=== PATIENT | male | born 1940 | race Caucasian/White ===

== ENCOUNTER → 2017-02-04 | Outpatient (CLI) | payer OTHER, MEDICARE ==
[~2017-02-04] MED LIST: ACET-1175 PO; ALBU1NEB10 INH; ASCO1CAP3 PO; ASCO500C43 PO; BECL0.072 INH; BISA10SU3 PR; CLC100X PO; FLUC100T PO; FURO-85 PO; MOM; MULT-513 PO; NUTR-977 GJT; OXGN; POLY150C PO; SENNAKOT; TIOTCAP INH; VITACAP26; [UNRECOGNIZED DRUG - OTHER] PO
--- NOTE | 2017-02-04 14:17 | DIAGNOSTIC IMAGING REPORT ---
ARTERIAL DOPPLER ULTRASOUND OF THE LOWER EXTREMITIES BILATERAL CLINICAL HISTORY: PAIN IN LEFT FOOT COMPARISON STUDY: No previous studies for comparison. FINDINGS: Brachial arm systolic pressures are 121 mmHg on the right and 132 mmHg on the left. Posterior tibial systolic pressures are 123 mmHg on the right and 1 26 mmHg on the left. Dorsalis pedis systolic pressures are 103 mmHg the right and 123 mmHg on the left. This yields ankle arm indices of 0.93 on the right and 0.95 and the left. There is scattered plaque present throughout both lower extremities. There is triphasic flow within both common femoral, superficial femoral, and popliteal arteries. There is biphasic flow within the posterior tibial and anterior tibial and peroneal arteries bilaterally. No high velocity jets are visualized. IMPRESSION: No evidence of focal lower extremity arterial stenosis. Ankle arm indices of 0.93 in the right and 0.95 the left. Electronically signed by: Srinath Alba M.D. 02/04/2017 2:15 PM Dictated Date/Time: 02/04/2017 2:14 PM
== END | disposition home or self-care (01) ==
LOC: C.ULTR 12:44
PROVIDERS: ATTEND Podiatrist
DX: I70.293 Other atherosclerosis of native arteries of extremities, bilateral legs (principal); M20.42 Other hammer toe(s) (acquired), left foot; M79.675 Pain in left toe(s)

== ENCOUNTER 2018-05-19 23:58 | Inpatient (IN) | payer OTHER, MEDICARE ==
[~2018-05-19] VITALS: Ht 188 cm; Wt 79.3 kg
[~2018-05-19 23:58] MED LIST changes: -ACET-1175 PO; -ALBU1NEB10 INH; -ASCO1CAP3 PO; -BECL0.072 INH; -BISA10SU3 PR; -CLC100X PO; -FLUC100T PO; +LPR25 PO; -MOM; -MULT-513 PO; -NUTR-977 GJT; -POLY150C PO; -SENNAKOT; +SPRIN INH; -TIOTCAP INH; -VITACAP26; -[UNRECOGNIZED DRUG - OTHER] PO
[2018-05-20] VITALS (14 sets, daily range): BP systolic 91–127; BP diastolic 54–69; PULSE 74–105; TEMP 36.5–37.3; O2SAT 94–98; BMI 23.8
--- NOTE | 2018-05-20 00:36 | EMERGENCY ROOM VISIT NOTE ---
History Report prepared by Beto: Cliff Cuevas Under the Supervision of: Dr. Shantanu Cartagena M.D. First contact with patient: 00:25 Chief Complaint: FALL Stated Complaint: FALL,LOW BLOOD PRESSURE,O2 ALMOST 5 History of Present Illness The patient is a 78 year old male who presents to the Emergency Room with complaints of an episode of a fell that occurred 90 minutes ago. Per the patient 's report, he was recently admitted a couple of days ago due to an irregular heart rate. Starting two days ago, he was started on Lopressor and was sent home. His states that since coming home, the patient has been off balance and weak. The patient states that today he fell and hit his forehead off of the ground. He states that after the fall, he was able to ambulate. The patient's states that his left knee now has an unusual bump. The patient denies knee pain, neck pain, headache, abdominal pain, urinary symptoms, and hip pain. Source of History: patient, spouse/significant other Onset: 90 minutes ago Position: other (generalized) Timing: other (an episode) Associated Symptoms: No headache, No neck pain, No abdominal pain, No urinary symptoms Note: Denies: knee pain and hip pain. Review of Systems See HPI for pertinent positives & negatives. A total of 10 systems reviewed and were otherwise negative. 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 (6) History of rectal cancer (7) IMPAIRED FASTING GLUCOSE (8) Respiratory failure, [id number] Family History Diabetes mellitus Hypertension Lung disease Social History Smoking Status: Former Smoker Alcohol Use: none Drug Use: none Marital Status: Housing Status: lives with family Occupation Status: retired Current/Historical Medications Scheduled Ascorbic Acid (Vitamin C 500 mg), 500 MG PO QAM Docusate Sodium (Docusate Sodium), 100 MG PO BID Furosemide (Lasix), 20 MG PO QAM Home O2 Therapy (Oxygen), 2-3 LITERS NA CONTINOUS Metoprolol Tartrate (Lopressor) (Lopressor), 12.5 MG PO DAILY Scheduled PRN Chlorpheniramine Maleate (Chlor-Trimeton), 4 MG PO BID PRN for Allergic Reaction Allergies Coded Allergies: Metoprolol (Verified Adverse Reaction, Mild, 0, 05/20/18) weakness Morphine (Verified Adverse Reaction, Unknown, GI SYMPTOMS, 05/16/18) dry heaving and convulsing-during recent [facility] surgery in 2012. Nitroglycerin (Verified Adverse Reaction, Unknown, GI SYMPTOMS, 05/16/18) at the same time of morphine allergy. heaving and convulsing. Physical Exam Vital Signs Date Time Temp Pulse Resp B/P (MAP) Pulse Ox O2 Delivery O2 Flow Rate FiO2 05/20/18 02:43 82 18 146/82 100 Nasal Cannula 3.0 05/20/18 01:00 75 17 126/57 99 Nasal Cannula 3.0 05/20/18 00:30 74 18 116/67 97 Nasal Cannula 3.0 05/20/18 00:01 36.8 79 16 111/64 100 Nasal Cannula 4.0 Physical Exam GENERAL: Patient is weak and chronically unwell appearing and in no acute distress. EYES: No scleral icterus, unremarkable pupils. ENT: Mucous membranes moist, no nasal congestion. NECK: No masses appreciated, no meningismus, trachea is midline. RESPIRATORY: Moderately dyspneic with decreased breath sounds bilaterally, right worse than left. No wheeze, no rhonchi. CARDIOVASCULAR: Regular rate and rhythm. No murmurs, rubs, gallops appreciated. GASTROINTESTINAL: Abdomen soft, nontender, no peritonitis. Bowel sounds positive. No masses appreciated. BACK: No midline tenderness, no CVA tenderness EXTREMITIES: Normal motion all extremities, no cyanosis, no edema. NEUROLOGIC: Alert and oriented, no acute motor or sensory deficits, no focal weakness, cranial nerves grossly intact. SKIN: No rash, no jaundice, no diaphoresis. Bruising on right arm, hand, and left knee. Bruise to mid forehead with some swelling. Medical Decision & Procedures ER Provider Diagnostic Interpretation: Stat Rad Radiology results and stated below per my review and radiologist interpretation: CT HEAD: No ICH, mass effect or edema. No skull fracture. Radiologist: Toño Clayton MD CT C SPINE: No evidence of fracture or malalignment. Radiologist: Toño Clayton MD ONE VIEW CHEST: No pneumothorax, no pneumonia, bilateral emphysematous changes with flattening of diaphragms. There is a right perihilar mass/adenopathy. This is similar to chest x-ray from 05/16. 2 VIEW LEFT KNEE: Moderate degenerative changes. No fracture. No dislocation Generalized weakness ,fall, failure to thrive Laboratory Results 05/20/18 00:44 Red Blood Count 3.93, Mean Corpuscular Volume 98.7, Mean Corpuscular Hemoglobin 31.8, Mean Corpuscular Hemoglobin Concent 32.2, Mean Platelet Volume 9.5, Neutrophils (%) (Auto) 78.7, Lymphocytes (%) (Auto) 11.3, Monocytes (%) (Auto) 7.5, Eosinophils (%) (Auto) 1.9, Basophils (%) (Auto) 0.2, Neutrophils # (Auto) 4.12, Lymphocytes # (Auto) 0.59, Monocytes # (Auto) 0.39, Eosinophils # (Auto) 0.10, Basophils # (Auto) 0.01 05/20/18 00:44 Test 05/20/18 00:44 05/20/18 02:30 White Blood Count 5.23 K/uL (4.8-10.8) Red Blood Count 3.93 M/uL (4.7-6.1) Hemoglobin 12.5 g/dL (14.0-18.0) Hematocrit 38.8 % (42-52) Mean Corpuscular Volume 98.7 fL (80-100) Mean Corpuscular Hemoglobin 31.8 pg (25-34) Mean Corpuscular Hemoglobin Concent 32.2 g/dl (32-36) Platelet Count 85 K/uL (130-400) Mean Platelet Volume 9.5 fL (7.4-10.4) Neutrophils (%) (Auto) 78.7 % Lymphocytes (%) (Auto) 11.3 % Monocytes (%) (Auto) 7.5 % Eosinophils (%) (Auto) 1.9 % Basophils (%) (Auto) 0.2 % Neutrophils # (Auto) 4.12 K/uL (1.4-6.5) Lymphocytes # (Auto) 0.59 K/uL (1.2-3.4) Monocytes # (Auto) 0.39 K/uL (0.11-0.59) Eosinophils # (Auto) 0.10 K/uL (0-0.5) Basophils # (Auto) 0.01 K/uL (0-0.2) RDW Standard Deviation 44.5 fL (36.4-46.3) RDW Coefficient of Variation 12.2 % (11.5-14.5) Immature Granulocyte % (Auto) 0.4 % Immature Granulocyte # (Auto) 0.02 K/uL (0.00-0.02) Red Blood Cell Morphology Unremarkable Prothrombin Time 10.1 SECONDS (9.0-12.0) Prothromb Time International Ratio 1.0 (0.9-1.1) Activated Partial Thromboplast Time 26.8 SECONDS (21.0-31.0) Partial Thromboplastin Ratio 1.0 Anion Gap 1.0 mmol/L (3-11) Est Creatinine Clear Calc Drug Dose 103.0 ml/min Estimated GFR () 105.6 Estimated GFR (Non- 91.1 BUN/Creatinine Ratio 22.2 (10-20) Estimated Average Glucose 105 mg/dl Hemoglobin A1c 5.3 % (4.5-5.6) Calcium Level 8.7 mg/dl (8.5-10.1) Phosphorus Level 3.2 mg/dl (2.5-4.9) Magnesium Level 2.1 mg/dl (1.8-2.4) Total Bilirubin 0.4 mg/dl (0.2-1) Direct Bilirubin 0.1 mg/dl (0-0.2) Aspartate Amino Transf (AST/SGOT) 35 U/L (15-37) Alanine Aminotransferase (ALT/SGPT) 36 U/L (12-78) Alkaline Phosphatase 114 U/L (45-117) Total Creatine Kinase 101 U/L (39-308) Creatine Kinase MB 6.5 ng/ml (0.5-3.6) Creatine Kinase MB Ratio 6.4 (0-3.0) Troponin I 0.032 ng/ml (0-0.045) Total Protein 7.6 gm/dl (6.4-8.2) Albumin 3.9 gm/dl (3.4-5.0) Lipase 113 U/L (73-393) Urine Color DK YELLOW Urine Appearance CLEAR (CLEAR) Urine pH 5.5 (4.5-7.5) Urine Specific [place] 1.025 (1.000-1.030) Urine Protein NEG (NEG) Urine Glucose (UA) NEG (NEG) Urine Ketones NEG (NEG) Urine Occult Blood NEG (NEG) Urine Nitrite NEG (NEG) Urine Bilirubin NEG (NEG) Urine Urobilinogen NEG (NEG) Urine Leukocyte Esterase NEG (NEG) Urine WBC (Auto) 1-5 /hpf (0-5) Urine RBC (Auto) 5-10 /hpf (0-4) Urine Hyaline Casts (Auto) 0 /lpf (0-5) Urine Epithelial Cells (Auto) 10-20 /lpf (0-5) Urine Bacteria (Auto) NEG (NEG) Laboratory results as reviewed by me. ECG Per My Interpretation Indication: weakness Rate (beats per minute): 77 Rhythm: normal sinus Findings: 1st degree AV block, T-wave inversion (Lateral), prolonged QT, other (no STEMI) Comparison ECG Date: 05/18/18 Change: TWI is new ED Course 0028: The patient was evaluated in room B11B. A complete history and physical exam was performed. 0219: I reevaluated the patient and he is the same. His reiterated that she is unable to care for him at home like this. I discussed the results and treatment plan, which they agree to. 0222: Paged Hospitalist. 0228: I discussed the patients condition with Dr. Sánchez, [facility] Hospitalist. He understands the patients condition and agrees to accept the patient. The patient will be evaluated for further management and care. Medical Decision Differential: Sepsis, Infectious (UTI/Pneumonia/Meningitis/etc), Metabolic/ Electrolyte Abnormality, Cardiac, Dehydration, Anemia, Hepatic, Endocrine, Toxicologic, Neurologic, amongst other pathologies entertained. Elderly very deconditioned 78 yr old male with host of medical comorbidities discharged just 2 days from [facility] arrives for evaluation s/p fall. Apparently he is not able to ambulate down mares at home without falling and injuring self. So weak that during fall can not protect his head. Inverted lateral T waves new compared to previous EKG but suspect this may be leads as doesn't sound like this was cardiac and t wave inversions have been seen in other EKGs in past. CT head/cervical negative. CXR clear. Labs unremarkable. makes it clear she can not care for him at home and he is too ill to return. Hospitalist consulted for further management/placement given it is early am, a weekend and he is quite ill to begin with. Head Trauma GCS Score: 15 Medication Reconcilliation Current Medication List: was personally reviewed by me Blood Pressure Screening Patient's blood pressure: Normal blood pressure Consults Time Called: [phone] Consulting Physician: Lisseth Molina Hospitalist Returned Call: [phone] I discussed the patients condition with Lisseth Molina Hospitalist. He understands the patients condition and agrees to accept the patient. The patient will be evaluated for further management and care. Impression Primary Impression: Generalized weakness Additional Impressions: Fall Failure to thrive in adult Scribe Attestation The scribe's documentation has been prepared under my direction and personally reviewed by me in its entirety. I confirm that the note above accurately reflects all work, treatment, procedures, and medical decision making performed by me. Departure Information Dispostion Being Evaluated By Hospitalist Referrals Ray Huerta MD (PCP) Patient Instructions My [facility] Problem Qualifiers
[2018-05-20 00:55] LABS: HEMATOCRIT 38.8 % (42-52); HEMOGLOBIN 12.5 g/dL (14.0-18.0); MEAN CELL VOLUME 98.7 fL (80-100); MEAN CORPUSCULAR HEMOGLOBIN 31.8 pg (25-34); MEAN CORPUSCULAR HGB CONC 32.2 g/dl (32-36); RED CELL DISTRIBUTION WIDTH CV 12.2 % (11.5-14.5); RED CELL DISTRIBUTION WIDTH SD 44.5 fL (36.4-46.3); WHITE BLOOD COUNT 5.23 K/uL (4.8-10.8)
[2018-05-20 00:59] LABS: MEAN PLATELET VOLUME 9.5 fL (7.4-10.4); PLATELET COUNT 85 K/uL (130-400)
[2018-05-20 01:05] LABS: PTT PATIENT 26.8 SECONDS (21.0-31.0)
[2018-05-20 01:14] LABS: BASO % 0.2 %; BASO ABS # 0.01 K/uL (0-0.2); EOS % 1.9 %; IG# 0.02 K/uL (0.00-0.02); LYMPH % 11.3 %; LYMPH ABS # 0.59 K/uL (1.2-3.4); MONO % 7.5 %; MONO ABS # 0.39 K/uL (0.11-0.59); NEUT % 78.7 %; NEUT ABS # 4.12 K/uL (1.4-6.5)
[2018-05-20] MEDS ORDERED: DOCU100C31 PO (01:15)
[2018-05-20] MEDS ORDERED: METO25TA56 PO (01:16)
[2018-05-20] MEDS ORDERED: CHLO4TAB PO (01:19)
[2018-05-20 01:24] LABS: ALBUMIN 3.9 gm/dl (3.4-5.0); CALCIUM 8.7 mg/dl (8.5-10.1); CKMB 6.5 ng/ml (0.5-3.6); CREATININE 0.71 mg/dl (0.60-1.40); PHOSPHORUS 3.2 mg/dl (2.5-4.9); POTASSIUM 4.3 mmol/L (3.5-5.1); TOTAL PROTEIN 7.6 gm/dl (6.4-8.2)
[2018-05-20] MEDS ORDERED: ACETAMINOPHEN 325 MG TAB PO PRN (03:15)
[2018-05-20] MEDS ORDERED: SODIUM CHLORIDE 0.9% 1000ML 1,000 ML IV ONE (03:15)
[2018-05-20] MEDS ORDERED: LEVALBUTEROL/IPRATROPIUM NEB INH STA (03:15)
[2018-05-20] MEDS ORDERED: LEVALBUTEROL/IPRATROPIUM NEB INH PRN ×2 (03:15→05:30)
[2018-05-20] MEDS ORDERED: NITROGLYCERIN 0.4 MG SL PER TAB CHARGE SL PRN (03:15)
[2018-05-20] MEDS ORDERED: OPTIRAY 320 IV PRN (03:30)
[2018-05-20] MEDS ORDERED: PROCHLORPERAZINE INJ 5 MG in SYRINGE 4 ML IV PRN (03:30)
[2018-05-20] MEDS ORDERED: IV FLUIDS COMPLETED PRN (04:00)
[2018-05-20] MEDS ORDERED: LEVALBUTEROL 1.25MG/0.5ML NEB INH STA (04:39)
[2018-05-20] MEDS ORDERED: IPRATROPIUM BROMIDE NEB SOLN 0.02% 2.5 ML VIAL INH STA (04:39)
[2018-05-20] MEDS ORDERED: IPRATROPIUM BROMIDE NEB SOLN 0.02% 2.5 ML VIAL INH PRN (04:45)
[2018-05-20] MEDS ORDERED: LEVALBUTEROL 1.25MG/0.5ML NEB INH PRN (04:45)
[2018-05-20] MEDS ORDERED: BENZONATATE 100MG CAP PO PRN (05:00)
[2018-05-20] MEDS ORDERED: LANTUS PER UNIT CHARGE SC ONE (05:00)
[2018-05-20] MEDS ORDERED: METHYLPREDNISOLONE IV 20 MG in SYRINGE 0 ML IV STA (05:05)
[2018-05-20] MEDS ORDERED: DIGOXIN IV 250 MCG in SYRINGE 9 ML IV ONE (05:15)
[2018-05-20] MEDS ORDERED: DOXYCYCLINE IV 100 MG in DEXTROSE 5% 100ML 100 ML IV ONE (05:30)
[2018-05-20] MEDS ORDERED: INSULIN ASPART 100 UNITS/ML 3 ML PEN SC ONE (05:56)
[2018-05-20] MEDS ORDERED: GLUCAGON FOR INJ 1 MG VIAL SQ PRN (06:00)
[2018-05-20] MEDS ORDERED: GLUCOSE 10 TABS/TUBE PO PRN (06:00)
[2018-05-20] MEDS ORDERED: DEXTROSE 50% 50 ML SYR IV PRN (06:00)
[2018-05-20] MEDS ORDERED: GLUCOSE 40% GEL 15 GM TUBE PO PRN (06:00)
[2018-05-20] MEDS ORDERED: CARBOHYDRATES FOR HYPOGLYCEMIA PO PRN (06:00)
[2018-05-20 06:47] LABS: HEMOGLOBIN A1C 5.3 % (4.5-5.6)
--- NOTE | 2018-05-20 07:05 | DIAGNOSTIC IMAGING REPORT ---
HEAD CT NONCONTRAST CT DOSE: 1073.86 mGy.cm HISTORY: Generalized Weakness TECHNIQUE: Multiaxial CT images of the head were performed without the use of intravenous contrast. Automated exposure control was utilized for this study. A dose lowering technique was utilized adhering to the principles of ALARA. Comparison: None. Findings: The paranasal sinuses and mastoid air cells are clear. The calvarium and skull base are intact. There is no mass, hematoma, midline shift, acute infarct. White matter hypodensity is nonspecific but suggestive of microvascular ischemic change. The ventricles and sulci demonstrate mild age-related involutional changes. Impression: No acute intracranial abnormality. Atrophy and microvascular ischemic changes. Electronically signed by: Pedro Lockhart M.D. 05/20/2018 7:04 AM Dictated Date/Time: 05/20/2018 7:01 AM
--- NOTE | 2018-05-20 07:36 | HISTORY & PHYSICAL EXAMINATION ---
DATE OF ADMISSION: 05/20/2018 PRIMARY CARE DOCTOR: Dr. Huerta. CHIEF COMPLAINT: Fall, weakness. HISTORY OF PRESENT ILLNESS: History obtained from patient, , records. Patient is a fair historian. Medical history significant for chronic respiratory failure secondary to COPD on home O2, past tobacco abuse, paroxysmal atrial flutter, not on anticoagulation secondary to bleeding risk, chronic thrombocytopenia, history of colorectal cancer status post surgery 2012, chronic anemia (baseline hemoglobin 10-11). Recent confinement from 05/16/2018 to 05/18/2018 for new onset Atrial Flutter with RVR, hilar mediastinal mass. Patient seen by Cardiology, Lopressor recommended. Patient deemed to be a poor candidate for anticoagulation due to risk factors. Patient noted generalized weakness attributed by and to low dose beta herson during confinement. Intermittent hypotensive episodes during confinement. Patient's atrial flutter converted to NSR during confinement. A CT chest during confinement showed confluent mediastinal right hilar adenopathy, resulting stenosis of right upper lobe pulmonary artery, early suspicious for malignancy. CT surgery consulted. Need to rule out malignancy. Possible outpatient procedure by CT surgery next week as per . At home, increased generalized weakness, unable to move around as much. Patient noted by to have intermittent episodes of labored breathing, although the patient denies this. Patient complaining of more junky cough. No fever, no chills. No chest pain. Last night he had a mechanical fall due to generalized weakness and loss of balance. Patient hit his forehead, LLE. No LOC. unable to help him get up. At the Emergency Room, the patient noted to have hemoptysis, blood-tinged sputum. MEDICAL HISTORY: As above. A 2D echo from last confinement April 2018 showed EF of 55%, normal LV systolic function, poorly-visualized valvular structures. SURGERIES: He has had bowel surgery, freeing of bowel adhesion. HOME MEDICATIONS: Include furosemide, metoprolol, ascorbic acid, chlorpheniramine home O2, docusate sodium. ALLERGIES: MORPHINE, NITROGLYCERIN. FAMILY HISTORY: Family history of colon cancer, heart disease. PERSONAL AND SOCIAL HISTORY: Past tobacco use. No chronic intake of alcoholic beverages. 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 REVIEW OF SYSTEMS: As per HPI. All 10 systems reviewed. All other ROS negative. PHYSICAL EXAMINATION: VITAL SIGNS: Blood pressure was noted to be 116/67, pulse rate 90, respiratory rate 18, temperature 36.8, sats 97 on 3 liters. GENERAL: Noted to have episodic lethargy during encounter . No overt respiratory distress. Incessant coughing. SKIN: pallor, warm. HEENT: Abrasion right forehead, pale palpebral conjunctivae, . No ptosis. Dry mucosa. Nasal cannula in place. NECK: Supple, nontender. CHEST: decreased breath sounds, occasional wheeze. HEART: Regular rate and rhythm, no murmur. ABDOMEN: Soft, nontender. Ostomy noted . EXTREMITIES: Tender swelling , left knee and right forearm. NEUROLOGIC: Coherent except for episodic lethargy. No facial asymmetry. No gross focality. Gait and stance not assessed. LABORATORY DATA: Hemoglobin was noted to be 12.5,white blood cell count 10, platelets 85. Sodium noted to be 132, potassium 4.6, chloride 89, CO2 40, creatinine 0.7, glucose 133. ABG, pH 7.24, pCO2 97, pO2 104, O2 sat [address] head initial read, no acute pathology. Cervical spine CT, initial read, no evidence of fracture or misalignment. Left knee x-ray no fracture, no swelling. CTA initial read, no PE, emphysema, 6 cm mediastinal right hilar soft tissue mass again seen, moderate secretions mid thoracic esophagus, small left pleural effusion. EKG as per my interpretation, rate 75, NSR, first degree AVB, T-wave inversion flattening in the lateral leads. ASSESSMENT: 1. Acute on chronic hypoxemic, hypercapnic respiratory failure secondary to chronic obstructive pulmonary disease exacerbation. Acute on chronic respiratory acidosis no sepsis. 2. Hemoptysis, secondary to above and underlying lung mass Possible malignancy Outpatient workup contemplated next week at CT surgeon's office. 3. Past tobacco abuse 4. Fall, generalized weakness Multifactorial : Deconditioning beta herson intolerance. rule out orthostasis given borderline BP from recent confinement 5. paroxysmal atrial flutter NSR Not on anticoagulation secondary to chronic thrombocytopenia/fall risk 6. history of colorectal cancer sp surgery 7. Chronic anemia baseline hemoglobin 10-11 8. hyperglycemia rule out DM. PLAN: PCU BiPAP trial Doxycycline, nebs, steroids Pulmonary consult RE respiratory failure, hemoptysis Antitussives given hemoptysis Hold beta herson for now given probable intolerance/add medication to ADR list. Hold home diuretic for now given hyponatremia, mild dehydration. IVF Cardiology consult RE Follow up eval, alternative agent for rate control for hx PAFl (? Digoxin given borderline BP) Orthostatic vitals. Check hemoglobin A1c. PT, OT eval. DVT prophylaxis, SCDs RE thrombocytopenia Full code as per . She requests updates from providers. Mrs. Kaylin Cabello, contact number [phone]. Total critical care time was 50 minutes. MTDD
--- NOTE | 2018-05-20 07:38 | DIAGNOSTIC IMAGING REPORT ---
CERVICAL SPINE CT CT DOSE: HISTORY: fall, head injury TECHNIQUE: Multiaxial CT images of the cervical spine were performed and reformatted in the sagittal and coronal plane without the use of contrast. A dose lowering technique was utilized adhering to the principles of ALARA. COMPARISON: None. FINDINGS: No fractures. No subluxation. Prevertebral soft tissues and the C1-C2 interval are intact. No pneumothorax. Moderate to severe facet degenerative changes. There is fusion of the C5-C6 vertebral bodies and facets. Emphysema. IMPRESSION: No fractures within the cervical spine. Electronically signed by: Pedro Lockhart M.D. 05/20/2018 7:36 AM Dictated Date/Time: 05/20/2018 7:33 AM
[2018-05-20 07:57] LABS: HEMATOCRIT 35.9 % (42-52); HEMOGLOBIN 11.5 g/dL (14.0-18.0); MEAN CELL VOLUME 99.2 fL (80-100); MEAN CORPUSCULAR HEMOGLOBIN 31.8 pg (25-34); RED CELL DISTRIBUTION WIDTH CV 12.1 % (11.5-14.5); RED CELL DISTRIBUTION WIDTH SD 43.9 fL (36.4-46.3); WHITE BLOOD COUNT 4.74 K/uL (4.8-10.8)
--- NOTE | 2018-05-20 08:00 | DIAGNOSTIC IMAGING REPORT ---
CHEST CTA for PULMONARY ARTERIES CT DOSE: 606.65 mGy.cm HISTORY: Hemoptysis. Lung cancer. TECHNIQUE: Multiaxial CT images of the chest were performed following the intravenous administration of contrast to evaluate the pulmonary arteries. Maximal intensity projection images were also obtained. A dose lowering technique was utilized adhering to the principles of ALARA. COMPARISON STUDY: Chest CTA 05/16/2018. FINDINGS: Normal caliber thoracic aorta with no evidence for dissection. The heart is normal in size. The visualized liver and spleen are unremarkable. Stable mild adrenal gland thickening. Trace left pleural effusion. No significant change in the 6.3 cm right mediastinal/hilar mass. There is associated mild narrowing of the bronchus intermedius and moderate narrowing of the right upper lobe bronchus. Intraluminal nodularity within the bronchus intermedius likely represents tumor invasion. Emphysema. No pneumothorax. Mildly distended fluid-filled esophagus. Opacification of the right apical posterior segmental bronchi. These measure up to 9 mm in thickness. This remains unchanged. No suspicious lytic or blastic osseous lesions. Severe narrowing of the right upper lobe pulmonary artery due to the mass. However, there are no filling defects within the visualized pulmonary arteries to suggest pulmonary embolus. The lower lower lobe segmental pulmonary arteries are nondiagnostic due to the motion artifact. IMPRESSION: 1. No evidence for pulmonary embolus. 2. Redemonstration of the 6.3 cm right mediastinal/hilar mass. This results in mild narrowing of the bronchus intermedius and moderate narrowing of the right upper lobe bronchus. There is intraluminal nodularity at the bronchus intermedius consistent with tumor invasion. 3. Nodular densities within the right upper lobe posteriorly favor impaction of the bronchi. This measures up to 9 mm. This could be due to tumor impaction. This remains unchanged. 3. Emphysema. 4. Trace left pleural effusion. 5. Severe narrowing of the right upper lobe pulmonary artery due to the mass. This remains unchanged. Electronically signed by: Pedro Lockhart M.D. 05/20/2018 7:59 AM Dictated Date/Time: 05/20/2018 7:48 AM
[2018-05-20 08:12] LABS: BASO % 0.2 %; BASO ABS # 0.01 K/uL (0-0.2); EOS % 0.8 %; EOS ABS # 0.04 K/uL (0-0.5); IG# 0.02 K/uL (0.00-0.02); LYMPH % 9.3 %; LYMPH ABS # 0.44 K/uL (1.2-3.4); MEAN PLATELET VOLUME 9.1 fL (7.4-10.4); MONO % 4.4 %; MONO ABS # 0.21 K/uL (0.11-0.59); NEUT % 84.9 %; NEUT ABS # 4.02 K/uL (1.4-6.5); PLATELET COUNT 83 K/uL (130-400)
[2018-05-20] MEDS: GUAIFENESIN 600 MG TABCR PO SCH ×2 (08:23→21:36)
[2018-05-20 08:35] LABS: CALCIUM 8.8 mg/dl (8.5-10.1); CREATININE 0.5 mg/dl (0.60-1.40); POTASSIUM 4.6 mmol/L (3.5-5.1)
[2018-05-20] MEDS ORDERED: LEVALBUTEROL/IPRATROPIUM NEB INH SCH (09:00)
--- NOTE | 2018-05-20 09:05 | DIAGNOSTIC IMAGING REPORT ---
CHEST ONE VIEW PORTABLE HISTORY: Generalized Weakness COMPARISON: Chest 05/16/2018. FINDINGS: Emphysema. No pleural effusions. No pneumothorax. Right hilar mass is again noted. No new focal lung consolidations. Stable 8 mm right upper lobe nodule. The heart is stable in size. IMPRESSION: 1. No change in the right hilar mass. 2. Emphysema. 3. No new focal lung consolidations to suggest pneumonia. Electronically signed by: Pedro Lockhart M.D. 05/20/2018 9:04 AM Dictated Date/Time: 05/20/2018 9:02 AM
--- NOTE | 2018-05-20 09:06 | DIAGNOSTIC IMAGING REPORT ---
LEFT KNEE 2 VIEWS HISTORY: fall, left knee bruising COMPARISON: None. FINDINGS: There is no fracture or dislocation. Soft tissues are unremarkable. No knee effusion. Moderate patellofemoral osteoarthritis. The bones are osteopenic. IMPRESSION: No fractures. Electronically signed by: Pedro Lockhart M.D. 05/20/2018 9:05 AM Dictated Date/Time: 05/20/2018 9:04 AM
[2018-05-20] MEDS: DOCUSATE SODIUM 100 MG CAP PO SCH ×2 (09:24→21:36)
--- NOTE | 2018-05-20 10:03 | Cardiology Consultation ---
Cardiology Consultation Date of Service May 20, 2018. Cardiology Consultation Indication: Consultation for paroxysmal atrial fibrillation History: This is a 78-year-old male patient who severe COPD, paroxysmal atrial arrhythmias and a recently diagnosed lung mass which is in the process of being worked up. The patient was actually just in the hospital and discharged 2 days ago with anticipation of an outpatient workup. He had failure to thrive at home and now has been readmitted to the hospital. The patient has no new cardiac complaints today. He is currently in a sinus rhythm. Allergies: Metoprolol, morphine and nitroglycerin Reported Home Medications Medications Dose Route/Sig Max Daily Dose Days Date Category Dose Instructions Chlor-Trimeton (Chlorpheniramine Maleate) 4 Mg Tab 4 Mg PO BID PRN 05/20/18 Reported Lopressor (Metoprolol Tartrate) 25 Mg Tab 12.5 Mg PO DAILY 05/20/18 Reported ORDERED TWICE DAILY. SPOUSE STATES PT TAKES ONCE DAILY. Docusate Sodium 100 Mg Cap 100 Mg PO BID 05/20/18 Reported Oxygen Gas 2-3 Liters NA CONTINOUS 09/16/17 Reported Vitamin C 500 mg (Ascorbic Acid) 1 Chw Chw 500 Mg PO QAM 09/16/17 Reported Lasix (Furosemide) 20 Mg Tab 20 Mg PO QAM 09/16/17 Reported Past medical history: As outlined above the patient has a history of severe COPD and a newly discovered right lung mass which is in the process of being worked up. He also has a history of rectal cancer and currently has a colostomy.. He has had paroxysmal atrial arrhythmias. No history of coronary artery disease or strokes. Social history: Patient is . His is with him today. Family medical history: Noncontributory Review of systems: The 10 point review of systems is negative except for the history of chief complaint Vital Signs Past 12 Hours Date Time Temp Pulse Resp B/P (MAP) Pulse Ox O2 Delivery O2 Flow Rate FiO2 05/20/18 07:06 36.5 77 20 107/67 (80) 95 BiPAP 05/20/18 06:12 77 98 30 05/20/18 05:48 78 98 30 05/20/18 05:45 78 23 98 BiPAP/CPAP 30 05/20/18 05:32 89 05/20/18 05:15 105 111/62 (78) 05/20/18 05:14 90 121/69 (86) 05/20/18 05:14 96 124/69 (87) 05/20/18 04:08 36.7 101 20 127/62 98 Nasal Cannula 4.0 05/20/18 03:43 84 17 132/74 99 05/20/18 02:43 82 18 146/82 100 Nasal Cannula 3.0 05/20/18 01:00 75 17 126/57 99 Nasal Cannula 3.0 05/20/18 00:30 74 18 116/67 97 Nasal Cannula 3.0 05/20/18 00:01 36.8 79 16 111/64 100 Nasal Cannula 4.0 General Appearance: Alert and Oriented x3. The patient appears to be lethargic. Head: Normocephalic Atraumatic. Eyes: PERRLA, EOMI, conjunctiva and sclera clear Neck: Supple. No carotid bruits noted. No JVD. No HJD. Respiratory: Breath sounds clear to auscultation bilaterally. No w/r/r. Cardiovascular: Reg rate and rhythm. S1 and S2 noted. No murmurs, rubs, gallops. PMI non displace. Abdomen: Normal bowel sounds, soft nontender. no abdominal bruits. Extremities: No edema, no clubbing or cyanosis. distal pulses 2/4 bilaterally. Neuro: No focal deficits. Psychiatric: Normal affect. Last 24 Hours Test 05/20/18 00:44 05/20/18 02:30 05/20/18 04:41 05/20/18 05:30 White Blood Count 5.23 K/uL Red Blood Count 3.93 M/uL Hemoglobin 12.5 g/dL Hematocrit 38.8 % Mean Corpuscular Volume 98.7 fL Mean Corpuscular Hemoglobin 31.8 pg Mean Corpuscular Hemoglobin Concent 32.2 g/dl Platelet Count 85 K/uL Mean Platelet Volume 9.5 fL Neutrophils (%) (Auto) 78.7 % Lymphocytes (%) (Auto) 11.3 % Monocytes (%) (Auto) 7.5 % Eosinophils (%) (Auto) 1.9 % Basophils (%) (Auto) 0.2 % Neutrophils # (Auto) 4.12 K/uL Lymphocytes # (Auto) 0.59 K/uL Monocytes # (Auto) 0.39 K/uL Eosinophils # (Auto) 0.10 K/uL Basophils # (Auto) 0.01 K/uL RDW Standard Deviation 44.5 fL RDW Coefficient of Variation 12.2 % Immature Granulocyte % (Auto) 0.4 % Immature Granulocyte # (Auto) 0.02 K/uL Red Blood Cell Morphology Unremarkable Prothrombin Time 10.1 SECONDS Prothromb Time International Ratio 1.0 Activated Partial Thromboplast Time 26.8 SECONDS Partial Thromboplastin Ratio 1.0 Sodium Level 132 mmol/L Potassium Level 4.3 mmol/L Chloride Level 89 mmol/L Carbon Dioxide Level 40 mmol/L Anion Gap 1.0 mmol/L Blood Urea Nitrogen 16 mg/dl Creatinine 0.71 mg/dl Est Creatinine Clear Calc Drug Dose 103.0 ml/min Estimated GFR () 105.6 Estimated GFR (Non- 91.1 BUN/Creatinine Ratio 22.2 Random Glucose 133 mg/dl Estimated Average Glucose 105 mg/dl Hemoglobin A1c 5.3 % Calcium Level 8.7 mg/dl Phosphorus Level 3.2 mg/dl Magnesium Level 2.1 mg/dl Total Bilirubin 0.4 mg/dl Direct Bilirubin 0.1 mg/dl Aspartate Amino Transf (AST/SGOT) 35 U/L Alanine Aminotransferase (ALT/SGPT) 36 U/L Alkaline Phosphatase 114 U/L Total Creatine Kinase 101 U/L Creatine Kinase MB 6.5 ng/ml Creatine Kinase MB Ratio 6.4 Troponin I 0.032 ng/ml Total Protein 7.6 gm/dl Albumin 3.9 gm/dl Lipase 113 U/L Urine Color DK YELLOW Urine Appearance CLEAR Urine pH 5.5 Urine Specific [place] 1.025 Urine Protein NEG Urine Glucose (UA) NEG Urine Ketones NEG Urine Occult Blood NEG Urine Nitrite NEG Urine Bilirubin NEG Urine Urobilinogen NEG Urine Leukocyte Esterase NEG Urine WBC (Auto) 1-5 /hpf Urine RBC (Auto) 5-10 /hpf Urine Hyaline Casts (Auto) 0 /lpf Urine Epithelial Cells (Auto) 10-20 /lpf Urine Bacteria (Auto) NEG Arterial Blood pH 7.24 Arterial Blood Partial Pressure CO2 97 mmHg Arterial Blood Partial Pressure O2 104 mm/Hg Arterial Blood HCO3 41 mmol/L Arterial Blood Oxygen Saturation 96.0 % Arterial Blood Base Excess 10.0 mEq/L Arterial Blood Gas Delivery 4 L Lamont Test POS Bedside Glucose 118 mg/dl Test 05/20/18 06:30 05/20/18 07:30 7/21/18 07:45 Arterial Blood pH 7.32 Arterial Blood Partial Pressure CO2 81 mmHg Arterial Blood Partial Pressure O2 64 mm/Hg Arterial Blood HCO3 41 mmol/L Arterial Blood Oxygen Saturation 92.4 % Arterial Blood Base Excess 12.1 mEq/L Arterial Blood Gas Delivery 30% Lamont Test POS Bedside Glucose 101 mg/dl White Blood Count 4.74 K/uL Red Blood Count 3.62 M/uL Hemoglobin 11.5 g/dL Hematocrit 35.9 % Mean Corpuscular Volume 99.2 fL Mean Corpuscular Hemoglobin 31.8 pg Mean Corpuscular Hemoglobin Concent 32.0 g/dl Platelet Count 83 K/uL Mean Platelet Volume 9.1 fL Neutrophils (%) (Auto) 84.9 % Lymphocytes (%) (Auto) 9.3 % Monocytes (%) (Auto) 4.4 % Eosinophils (%) (Auto) 0.8 % Basophils (%) (Auto) 0.2 % Neutrophils # (Auto) 4.02 K/uL Lymphocytes # (Auto) 0.44 K/uL Monocytes # (Auto) 0.21 K/uL Eosinophils # (Auto) 0.04 K/uL Basophils # (Auto) 0.01 K/uL RDW Standard Deviation 43.9 fL RDW Coefficient of Variation 12.1 % Immature Granulocyte % (Auto) 0.4 % Immature Granulocyte # (Auto) 0.02 K/uL Sodium Level 134 mmol/L Potassium Level 4.6 mmol/L Chloride Level 92 mmol/L Carbon Dioxide Level 42 mmol/L Anion Gap 1.0 mmol/L Blood Urea Nitrogen 13 mg/dl Creatinine 0.50 mg/dl Est Creatinine Clear Calc Drug Dose 146.2 ml/min Estimated GFR () 122.0 Estimated GFR (Non- 105.3 BUN/Creatinine Ratio 25.9 Random Glucose 108 mg/dl Calcium Level 8.8 mg/dl Impression: (1) paroxysmal atrial flutter (2) Mass of right lung (3) CHR AIRWAY OBSTRUCT NEC (4) Chronic hypercapnic respiratory failure (5) Thrombocytopenia (6) Anemia, macrocytic (7) History of rectal cancer (8) Colostomy in place Recommendations: The patient is currently maintaining sinus rhythm. He has no new cardiac complaints today. I would continue his home medications. We will follow along with you during his hospital stay. As mentioned above, the workup for his lung masses in progress.
--- NOTE | 2018-05-20 10:20 | Progress Note ---
Subjective Date of Service: May 20, 2018. Subjective Pt evaluation today including: conversation w/ patient, conversation w/ family , physical exam, lab review, review of studies, conversation w/ service loss control consultant, review of inpatient medication list Saw/examined the patient in room 230 He is off of bipap now, intermittently tired/lethargic is in the room with him; states he is too weak to go home She feels the metoprolol was making him more tired He is currently eating breakfast - tells me his breathing is at baseline; denies chest pain/shortness of breath Has a cough and states he had some hemoptysis - tells me he is streaks of blood in his sputum intermittently for a few weeks now Problem List Medical Problems: (1) Abdominal pain Status: Acute (2) Atrial ectopic tachycardia Status: Acute (3) COPD exacerbation Status: Acute (4) Failure to thrive in adult Status: Acute (5) Fall Status: Acute (6) Generalized weakness Status: Acute (7) Hypercapnia Status: Acute Review of Systems Constitutional: + weakness, + fatigue, No fever, No chills Respiratory: + cough, + sputum, + shortness of breath (chronic), + hemoptysis Cardiac: No chest pain, No edema, No palpitations Abdomen: No pain, No nausea, No vomiting, No diarrhea, No constipation, No GI bleeding Musculoskeletal: No joint pain Neurologic: + weakness, + balance problems, No vertigo Medications Current Inpatient Medications Medications (Trade) Dose Ordered Sig/Brittni Route Start Time Stop Time Status Last Admin Dose Admin Sodium Chloride 1,000 ml @ 60 mls/hr [id number] ONCE IV 05/20/18 03:15 05/20/18 19:54 05/20/18 04:41 60 MLS/HR Acetaminophen (Tylenol Tab) 650 mg Q4H PRN PO 05/20/18 03:15 06/19/18 03:14 Docusate Sodium (coLACE CAP) 100 mg BID PO 05/20/18 09:00 06/19/18 08:59 05/20/18 09:24 100 MG Ioversol (Optiray 320) 125 ml UD PRN IV 05/20/18 03:30 05/24/18 03:29 Prochlorperazine Edisylate 5 mg/ Syringe 5 ml @ 5 mls/min Q6H PRN IV 05/20/18 03:30 06/19/18 03:29 Miscellaneous (Iv Fluids Completed) 1 ea PRN PRN N/A 05/20/18 04:00 05/20/19 03:59 Ipratropium [place] (Atrovent 0.02% 0.5MG/2.5ML Neb) 0.5 mg Q4H PRN INH 05/20/18 04:45 06/19/18 04:44 Levalbuterol (Xopenex 1.25MG/ 0.5ML Neb) 1.25 mg Q4H PRN INH 05/20/18 04:45 06/19/18 04:44 Guaifenesin (Mucinex Contr Rel Tab) 600 mg Q12 PO 05/20/18 09:00 06/19/18 08:59 05/20/18 08:23 600 MG Benzonatate (Tessalon Perles Cap) 100 mg TID PRN PO 05/20/18 05:00 06/19/18 04:59 Prednisone (PredniSONE TAB) 40 mg DAILY PO 05/21/18 09:00 05/26/18 08:59 Doxycycline Hyclate (Vibramycin Cap) 100 mg BID PO 05/20/18 21:00 05/27/18 20:59 Insulin Glargine (Lantus Solostar Pen) 5 units DAILY SC 05/21/18 09:00 06/20/18 08:59 Insulin Aspart (novoLOG ASPART) SLIDING SCALE If C... ACHS SC 05/20/18 11:00 06/19/18 10:59 Glucose (Glucose 40% Gel) 15-30 GRAMS 15 GRAMS... UD PRN PO 05/20/18 06:00 06/19/18 05:59 Glucose (Glucose Chew Tab) 4-8 Tablets 4 Tabl... UD PRN PO 05/20/18 06:00 06/19/18 05:59 Dextrose (Dextrose 50% 50ML Syringe) 25-50ML 25ML FOR ... UD PRN IV 05/20/18 06:00 06/19/18 05:59 Glucagon (Glucagon Inj) 1 mg UD PRN SQ 05/20/18 06:00 06/19/18 05:59 Carbohydrates (Carbohydrates For Hypoglycemia) 15-30 GRAMS 15 grams if BSG 54-69... UD PRN PO 05/20/18 06:00 06/19/18 05:59 Ipratropium [place] (Atrovent 0.02% 0.5MG/2.5ML Neb) 0.5 mg Q6R INH 05/20/18 09:00 06/19/18 08:59 Levalbuterol (Xopenex 1.25MG/ 0.5ML Neb) 1.25 mg Q6R INH 05/20/18 09:00 06/19/18 08:59 Objective Vital Signs Date Time Temp Pulse Resp B/P (MAP) Pulse Ox O2 Delivery O2 Flow Rate FiO2 05/20/18 07:06 36.5 77 20 107/67 (80) 95 BiPAP 05/20/18 06:12 77 98 30 05/20/18 05:48 78 98 30 05/20/18 05:45 78 23 98 BiPAP/CPAP 30 05/20/18 05:32 89 05/20/18 05:15 105 111/62 (78) 05/20/18 05:14 90 121/69 (86) 05/20/18 05:14 96 124/69 (87) 05/20/18 04:08 36.7 101 20 127/62 98 Nasal Cannula 4.0 05/20/18 03:43 84 17 132/74 99 05/20/18 02:43 82 18 146/82 100 Nasal Cannula 3.0 05/20/18 01:00 75 17 126/57 99 Nasal Cannula 3.0 05/20/18 00:30 74 18 116/67 97 Nasal Cannula 3.0 05/20/18 00:01 36.8 79 16 111/64 100 Nasal Cannula 4.0 Physical Exam General Appearance: + pertinent finding (chronically ill appearing, lethargic and tired) ENT: hearing grossly normal Respiratory/Chest: no respiratory distress, no accessory muscle use, + decreased breath sounds, + wheezing Cardiovascular: regular rate, rhythm, no edema, no murmur Abdomen: + pertinent finding (+ostomy) Neurologic/Psychiatric: alert, normal mood/affect Laboratory Results Last 24 Hours Test 05/20/18 00:44 05/20/18 02:30 05/20/18 04:41 05/20/18 05:30 White Blood Count 5.23 K/uL Red Blood Count 3.93 M/uL Hemoglobin 12.5 g/dL Hematocrit 38.8 % Mean Corpuscular Volume 98.7 fL Mean Corpuscular Hemoglobin 31.8 pg Mean Corpuscular Hemoglobin Concent 32.2 g/dl Platelet Count 85 K/uL Mean Platelet Volume 9.5 fL Neutrophils (%) (Auto) 78.7 % Lymphocytes (%) (Auto) 11.3 % Monocytes (%) (Auto) 7.5 % Eosinophils (%) (Auto) 1.9 % Basophils (%) (Auto) 0.2 % Neutrophils # (Auto) 4.12 K/uL Lymphocytes # (Auto) 0.59 K/uL Monocytes # (Auto) 0.39 K/uL Eosinophils # (Auto) 0.10 K/uL Basophils # (Auto) 0.01 K/uL RDW Standard Deviation 44.5 fL RDW Coefficient of Variation 12.2 % Immature Granulocyte % (Auto) 0.4 % Immature Granulocyte # (Auto) 0.02 K/uL Red Blood Cell Morphology Unremarkable Prothrombin Time 10.1 SECONDS Prothromb Time International Ratio 1.0 Activated Partial Thromboplast Time 26.8 SECONDS Partial Thromboplastin Ratio 1.0 Sodium Level 132 mmol/L Potassium Level 4.3 mmol/L Chloride Level 89 mmol/L Carbon Dioxide Level 40 mmol/L Anion Gap 1.0 mmol/L Blood Urea Nitrogen 16 mg/dl Creatinine 0.71 mg/dl Est Creatinine Clear Calc Drug Dose 103.0 ml/min Estimated GFR () 105.6 Estimated GFR (Non- 91.1 BUN/Creatinine Ratio 22.2 Random Glucose 133 mg/dl Estimated Average Glucose 105 mg/dl Hemoglobin A1c 5.3 % Calcium Level 8.7 mg/dl Phosphorus Level 3.2 mg/dl Magnesium Level 2.1 mg/dl Total Bilirubin 0.4 mg/dl Direct Bilirubin 0.1 mg/dl Aspartate Amino Transf (AST/SGOT) 35 U/L Alanine Aminotransferase (ALT/SGPT) 36 U/L Alkaline Phosphatase 114 U/L Total Creatine Kinase 101 U/L Creatine Kinase MB 6.5 ng/ml Creatine Kinase MB Ratio 6.4 Troponin I 0.032 ng/ml Total Protein 7.6 gm/dl Albumin 3.9 gm/dl Lipase 113 U/L Urine Color DK YELLOW Urine Appearance CLEAR Urine pH 5.5 Urine Specific [place] 1.025 Urine Protein NEG Urine Glucose (UA) NEG Urine Ketones NEG Urine Occult Blood NEG Urine Nitrite NEG Urine Bilirubin NEG Urine Urobilinogen NEG Urine Leukocyte Esterase NEG Urine WBC (Auto) 1-5 /hpf Urine RBC (Auto) 5-10 /hpf Urine Hyaline Casts (Auto) 0 /lpf Urine Epithelial Cells (Auto) 10-20 /lpf Urine Bacteria (Auto) NEG Arterial Blood pH 7.24 Arterial Blood Partial Pressure CO2 97 mmHg Arterial Blood Partial Pressure O2 104 mm/Hg Arterial Blood HCO3 41 mmol/L Arterial Blood Oxygen Saturation 96.0 % Arterial Blood Base Excess 10.0 mEq/L Arterial Blood Gas Delivery 4 L Lamont Test POS Bedside Glucose 118 mg/dl Test 05/20/18 06:30 05/20/18 07:30 05/20/18 07:45 Arterial Blood pH 7.32 Arterial Blood Partial Pressure CO2 81 mmHg Arterial Blood Partial Pressure O2 64 mm/Hg Arterial Blood HCO3 41 mmol/L Arterial Blood Oxygen Saturation 92.4 % Arterial Blood Base Excess 12.1 mEq/L Arterial Blood Gas Delivery 30% Lamont Test POS Bedside Glucose 101 mg/dl White Blood Count 4.74 K/uL Red Blood Count 3.62 M/uL Hemoglobin 11.5 g/dL Hematocrit 35.9 % Mean Corpuscular Volume 99.2 fL Mean Corpuscular Hemoglobin 31.8 pg Mean Corpuscular Hemoglobin Concent 32.0 g/dl Platelet Count 83 K/uL Mean Platelet Volume 9.1 fL Neutrophils (%) (Auto) 84.9 % Lymphocytes (%) (Auto) 9.3 % Monocytes (%) (Auto) 4.4 % Eosinophils (%) (Auto) 0.8 % Basophils (%) (Auto) 0.2 % Neutrophils # (Auto) 4.02 K/uL Lymphocytes # (Auto) 0.44 K/uL Monocytes # (Auto) 0.21 K/uL Eosinophils # (Auto) 0.04 K/uL Basophils # (Auto) 0.01 K/uL RDW Standard Deviation 43.9 fL RDW Coefficient of Variation 12.1 % Immature Granulocyte % (Auto) 0.4 % Immature Granulocyte # (Auto) 0.02 K/uL Sodium Level 134 mmol/L Potassium Level 4.6 mmol/L Chloride Level 92 mmol/L Carbon Dioxide Level 42 mmol/L Anion Gap 1.0 mmol/L Blood Urea Nitrogen 13 mg/dl Creatinine 0.50 mg/dl Est Creatinine Clear Calc Drug Dose 146.2 ml/min Estimated GFR () 122.0 Estimated GFR (Non- 105.3 BUN/Creatinine Ratio 25.9 Random Glucose 108 mg/dl Calcium Level 8.8 mg/dl Assessment and Plan This is a 78 year old male with a past medical history of severe COPD, chronic respiratory failure on chronic 3L of O2 continuously, hx. of rectal cancer s/p resection s/p colostomy, hx. of lung mass, recent atrial flutter diagnosis - presents due to weakness, fall, worsening shortness of breath Acute on Chronic Hypoxic/Hypercapnic Respiratory Failure secondary to Acute COPD Exacerbation - ABG on admission - CO2 >90 - there is chronic respiratory failure, he uses 3L of O2 continuously - initially on bipap, now off of it - started on 40mg of prednisone for the COPD, nebs as needed, doxycycline - pulmonology consulted for further input Paroxysmal Atrial Flutter - was discharged last week from [facility] after converting from atrial flutter to NSR - currently in NSR - states he had trouble with metoprolol, so this was stopped - cardiology consulted to see if we should start a CCB - no anticoagulation due to thrombocytopenia, bleed risk, hemoptysis, etc. Hemoptysis in the setting of R Mediastinal/Hilar Mass - was scheduled to see cardiothoracic surgery next week for endobronchial ultrasound - presented here with hemoptysis; H/H stable - now on prednisone/doxycycline/nebs - once stable, family would prefer cardiothoracic surgery to see the patient here and possibly perform biopsy while inpatient Hx. of Rectal Cancer s/p Resection and Ostomy DVT ppx - SCDs FULL CODE
[2018-05-20] MEDS: INSULIN ASPART 100 UNITS/ML 3 ML PEN SC SCH ×3 (11:00→20:56)
--- NOTE | 2018-05-20 12:12 | PULMONARY CONSULTATION ---
DATE OF CONSULTATION: 05/20/2018 TIME: 10:10 a.m. REPORT OF CONSULTATION: The patient was seen in room 230, bed 2. He is a 78-year-old male who presented to the Emergency Room in the late hours of last evening after suffering a fall at home. His was with him during this evaluation. She indicates that for the past month, he has been getting weaker and weaker. The patient is sedentary on a regular basis, but he has been doing almost nothing. The distance from his bed to the bathroom is literally just 10 or 15 feet. The patient does not believe that he hurt himself with the fall. There was no evidence of syncope. He was just very recently in the hospital from May 16 through May 18. He was there at that time because of cardiac arrhythmia. In the recent past, he was evaluated by Dr. Gross for a right perihilar mass. He was planning to do bronchoscopy with ultrasound. The patient has a history of COPD. Apparently, he used to take inhalers, but he felt they did not work. He was on a nebulizer, but he did not feel it helps, so he takes nothing except he is on continuous oxygen at 2-3 liters. Recently, the patient has been boosting up his oxygen according to his . He has been coughing up small quantities of blood. This was done in the past couple of weeks. He has lost 25 pounds in the past 6 months or so. His energy level has dramatically declined. The patient does have a history of rectal cancer in 2013. He underwent a colon resection for this. He had to have a second surgery 3 days after the first one for some type of complication. He was not given any postop neoadjuvant therapy with either chemo or radiation because it was thought that he would not well tolerated. Mr. Cabello has a history of smoking between 1 and 2 packs per day for 52 years and he quit in 2012. As noted, he has been feeling weak. He has been off balance according to his . He does not complain of dizziness. PAST SURGICAL HISTORY: 1. Hydrocele repair. 2. Colostomy and colon resection in 2012. PAST MEDICAL HISTORY: 1. Atrial fibrillation. 2. Anemia. 3. COPD. 4. Rectal cancer. 5. Prolonged QT interval. 6. Thrombocytopenia. SOCIAL HISTORY: Tobacco as noted above. ETOH - denies. 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 FAMILY HISTORY: Father , COPD. Mother , had colon cancer. ALLERGIES: LISTED ALLERGIES TO METOPROLOL, MORPHINE, AND NITROGLYCERIN. REVIEW OF SYSTEMS: Negative except for the complaints mentioned in the history of present illness. Ten systems reviewed. MEDICATIONS AT HOME: 1. Vitamin C 1 daily. 2. Chlorpheniramine 4 mg b.i.d. p.r.n. 3. Docusate b.i.d. 4. Furosemide 20 mg daily. 5. Lopressor 12.5 mg daily. PHYSICAL EXAMINATION: GENERAL: The patient is a 78-year-old male who was somnolent, but easily arousable. He would doze off a bit during the exam. He was oriented. He was in no distress. He coughed occasionally during the exam. Weight is listed as 84 kilograms with a BMI of 23.8. VITAL SIGNS: Temperature is 36.5. HEENT: Pupils were reactive to light. Nares were clear. Mouth exam showed an absence of teeth. NECK: Palpation of the neck reveals no definite lymph nodes. The left side of his neck felt a little crawford than the right, but no definite adenopathy was palpable. CHEST: The cardiac rate is 77 per minute. The rhythm was regular. Blood pressure is 107/60. The respiratory rate is 20 breaths per minute, it was not labored. The breath sounds are somewhat diffusely diminished. Wheezing could be heard bilaterally posteriorly when the patient did a forced vital capacity maneuver. Oxygen saturation was 95%. He was on nasal cannula at that time. ABDOMEN: Inspection of the abdomen reveals a colostomy. Bowel sounds were present. There was no tenderness to palpation or masses. EXTREMITIES: Showed no cyanosis, clubbing or edema. IMAGING DATA: CT angio of the chest showed no evidence of pulmonary embolic disease. There is a 6.3 cm right perihilar mass which extends into the mediastinum. There is narrowing of the right upper lobe bronchus. It appears that there may be endobronchial involvement with some nodularity at the bronchus intermedius. There is a 9 mm right upper lobe nodular density. Diffuse emphysema was noted. The patient was noted to have severe narrowing of the right upper lobe pulmonary artery due to the mass. Cervical spine CAT scan was negative for fractures. Head CT showed no acute intracranial abnormality. LABORATORY DATA: White count was 4.74. Hemoglobin 11.5. Platelets 83,000. INR is 1 and PTT is 26.8. Urinalysis showed 5-10 RBCs per high power field. Arterial blood gas initially showed a pH of 7.24 with a pCO2 of 97 and a pO2 of 104 done on 4-liter nasal cannula. Repeat blood gas at 6:30 a.m. done on 30% and likely with BiPAP showed a pH of 7.32 with a pCO2 of 81 and a pO2 of 64. These blood gases represent respiratory acidosis with some degree of compensation. Electrolytes show sodium 134, potassium 4.6, chloride 92, bicarbonate 42. BUN is 13 with a creatinine of 0.5. Calcium is 8.8. AST, ALT and alkaline phosphatase are normal. Albumin is 3.9 and protein 7.6. IMPRESSIONS: 1. Acute on chronic respiratory failure with hypoxia and hypercarbia. 2. Severe emphysema. 3. 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 COMMENTS AND RECOMMENDATIONS: The patient's weakness is likely related to his severely abnormal pCO2 levels in addition to the underlying weakness he has from his multiple medical problems. His has noted significant lethargy and daytime somnolence. Our short term goal is to improve his pCO2 levels. The patient had BiPAP on for only an hour or 2. He found it uncomfortable. I told him we need to have him wear this intermittently during the day and try and wear it at night. This would be the underlying optimum way to get him prepped for a biopsy procedure of his mass lesion. We need to keep his oxygen saturations on the low side because of the severe hypercarbia. I will order sputum cytology in light of the fact he is coughing up small quantities of bloody sputum. The patient is ordered doxycycline. He is ordered prednisone 40 mg daily. He is on q. 6 hours levalbuterol and ipratropium. The levalbuterol is currently at 1.25. If rapid AFib once again became a problem, we could lower the levalbuterol to 0.63 per dosage. I believe the patient should start using his nebulizer at home again when he is discharged. The patient's tumor could represent metastatic disease or could be a primary bronchogenic carcinoma. In all likelihood, ultimately, when he is at his maximum, then a biopsy will need to be done. If it would need to be done with anesthesia, he would have at least a moderate risk of being on mechanical ventilation post procedure. Thank you for asking me to assist in his care. LINDSAY
[2018-05-20 15:08] LABS: HEMATOCRIT 32.1 % (42-52); HEMOGLOBIN 10.4 g/dL (14.0-18.0)
[2018-05-20] MEDS: IPRATROPIUM BROMIDE NEB SOLN 0.02% 2.5 ML VIAL INH SCH ×2 (18:14→19:08)
[2018-05-20] MEDS: LEVALBUTEROL 1.25MG/0.5ML NEB INH SCH ×2 (18:14→19:09)
[2018-05-20] MEDS: DOXYCYCLINE HYCLATE 100 MG CAP PO SCH (21:37)
[2018-05-21] VITALS (12 sets, daily range): BP systolic 93–112; BP diastolic 55–66; PULSE 71–88; TEMP 36.7–37.1; O2SAT 93–100
[2018-05-21] MEDS: IPRATROPIUM BROMIDE NEB SOLN 0.02% 2.5 ML VIAL INH SCH ×4 (01:51→19:35)
[2018-05-21] MEDS: LEVALBUTEROL 1.25MG/0.5ML NEB INH SCH ×4 (01:51→19:35)
[2018-05-21] MEDS: INSULIN ASPART 100 UNITS/ML 3 ML PEN SC SCH ×4 (07:39→20:26)
[2018-05-21 08:08] LABS: HEMATOCRIT 32.3 % (42-52); HEMOGLOBIN 10.6 g/dL (14.0-18.0); MEAN CELL VOLUME 97.6 fL (80-100); MEAN CORPUSCULAR HGB CONC 32.8 g/dl (32-36); RED CELL DISTRIBUTION WIDTH CV 12.3 % (11.5-14.5); RED CELL DISTRIBUTION WIDTH SD 44.1 fL (36.4-46.3)
[2018-05-21 08:12] LABS: PLATELET COUNT 77 K/uL (130-400)
[2018-05-21] MEDS: DOXYCYCLINE HYCLATE 100 MG CAP PO SCH ×2 (08:12→20:28)
[2018-05-21] MEDS: GUAIFENESIN 600 MG TABCR PO SCH ×2 (08:12→20:28)
[2018-05-21] MEDS: DOCUSATE SODIUM 100 MG CAP PO SCH ×2 (08:13→20:29)
[2018-05-21 08:44] LABS: CALCIUM 8.4 mg/dl (8.5-10.1); CREATININE 0.53 mg/dl (0.60-1.40); POTASSIUM 4.3 mmol/L (3.5-5.1)
[2018-05-21] MEDS: INSULIN GLARGINE SOLOSTAR 100 UNITS/ML 3 ML PEN SC SCH (09:03)
--- NOTE | 2018-05-21 10:22 | Progress Note ---
Subjective Date of Service: May 21, 2018. Subjective Pt evaluation today including: conversation w/ patient, conversation w/ family , physical exam, lab review, review of studies, review of inpatient medication list Saw/examined the patient in room 230 He used his bipap nocturnally for about one hour, but cannot tolerate it and does not want to use it this AM He is more awake/alert today but refusing most interventions and states he wants to go home is in the room - she states she does not want him to go home and prefers rehab prior to going home because she is the sole intervention analyst he states he feels fine, denies any shortness of breath/chest pain/palpitations +weakness and balance issues persist Problem List Medical Problems: (1) Abdominal pain Status: Acute (2) Atrial ectopic tachycardia Status: Acute (3) COPD exacerbation Status: Acute (4) Failure to thrive in adult Status: Acute (5) Fall Status: Acute (6) Generalized weakness Status: Acute (7) Hypercapnia Status: Acute Review of Systems Constitutional: + weakness Respiratory: No cough, No sputum, No shortness of breath Cardiac: No chest pain, No edema, No palpitations Abdomen: No pain, No nausea, No vomiting, No diarrhea Neurologic: + weakness, + balance problems, No vertigo Medications Current Inpatient Medications Medications (Trade) Dose Ordered Sig/Brittni Route Start Time Stop Time Status Last Admin Dose Admin Acetaminophen (Tylenol Tab) 650 mg Q4H PRN PO 05/20/18 03:15 06/19/18 03:14 Docusate Sodium (coLACE CAP) 100 mg BID PO 05/20/18 09:00 06/19/18 08:59 05/21/18 08:13 100 MG Ioversol (Optiray 320) 125 ml UD PRN IV 05/20/18 03:30 05/24/18 03:29 Prochlorperazine Edisylate 5 mg/ Syringe 5 ml @ 5 mls/min Q6H PRN IV 05/20/18 03:30 06/19/18 03:29 Miscellaneous (Iv Fluids Completed) 1 ea PRN PRN N/A 05/20/18 04:00 05/20/19 03:59 Ipratropium [place] (Atrovent 0.02% 0.5MG/2.5ML Neb) 0.5 mg Q4H PRN INH 05/20/18 04:45 06/19/18 04:44 Levalbuterol (Xopenex 1.25MG/ 0.5ML Neb) 1.25 mg Q4H PRN INH 05/20/18 04:45 06/19/18 04:44 Guaifenesin (Mucinex Contr Rel Tab) 600 mg Q12 PO 05/20/18 09:00 06/19/18 08:59 05/21/18 08:12 600 MG Benzonatate (Tessalon Perles Cap) 100 mg TID PRN PO 05/20/18 05:00 06/19/18 04:59 Prednisone (PredniSONE TAB) 40 mg DAILY PO 05/21/18 09:00 05/26/18 08:59 05/21/18 08:13 40 MG Doxycycline Hyclate (Vibramycin Cap) 100 mg BID PO 05/20/18 21:00 05/27/18 20:59 05/21/18 08:12 100 MG Insulin Glargine (Lantus Solostar Pen) 5 units DAILY SC 05/21/18 09:00 06/20/18 08:59 05/21/18 09:03 5 UNITS Insulin Aspart (novoLOG ASPART) SLIDING SCALE If C... ACHS SC 05/20/18 11:00 06/19/18 10:59 Glucose (Glucose 40% Gel) 15-30 GRAMS 15 GRAMS... UD PRN PO 05/20/18 06:00 06/19/18 05:59 Glucose (Glucose Chew Tab) 4-8 Tablets 4 Tabl... UD PRN PO 05/20/18 06:00 06/19/18 05:59 Dextrose (Dextrose 50% 50ML Syringe) 25-50ML 25ML FOR ... UD PRN IV 05/20/18 06:00 06/19/18 05:59 Glucagon (Glucagon Inj) 1 mg UD PRN SQ 05/20/18 06:00 06/19/18 05:59 Carbohydrates (Carbohydrates For Hypoglycemia) 15-30 GRAMS 15 grams if BSG 54-69... UD PRN PO 05/20/18 06:00 06/19/18 05:59 Ipratropium [place] (Atrovent 0.02% 0.5MG/2.5ML Neb) 0.5 mg Q6R INH 05/20/18 09:00 06/19/18 08:59 05/21/18 07:02 0.5 MG Levalbuterol (Xopenex 1.25MG/ 0.5ML Neb) 1.25 mg Q6R INH 05/20/18 09:00 06/19/18 08:59 05/21/18 07:02 1.25 MG Objective Vital Signs Date Time Temp Pulse Resp B/P (MAP) Pulse Ox O2 Delivery O2 Flow Rate FiO2 05/21/18 08:20 Nasal Cannula 3.5 05/21/18 07:02 71 16 99 Nasal Cannula 5.0 05/21/18 06:22 36.8 77 26 93/55 (68) 98 Nasal Cannula 5.0 05/21/18 03:50 37.1 72 24 101/65 (77) 100 Nasal Cannula 5.0 05/21/18 01:51 78 14 98 Nasal Cannula 4.0 05/20/18 23:27 74 97 30 05/20/18 23:23 36.9 77 20 91/54 (66) 94 Nasal Cannula 3.0 05/20/18 20:00 Nasal Cannula 3.5 05/20/18 19:18 36.9 87 20 95/55 (68) 98 Nasal Cannula 4.0 05/20/18 19:09 80 18 98 Nasal Cannula 4.0 05/20/18 15:54 36.5 86 18 96/58 (71) 97 Nasal Cannula 4.0 05/20/18 11:17 37.3 81 20 102/64 (77) 96 Nasal Cannula 4.0 Physical Exam General Appearance: no apparent distress Respiratory/Chest: no respiratory distress, no accessory muscle use, + decreased breath sounds Cardiovascular: regular rate, rhythm, no edema, no murmur Abdomen: + pertinent finding (+ostomy) Neurologic/Psychiatric: no motor/sensory deficits, alert, normal mood/affect Laboratory Results Last 24 Hours Test 05/20/18 11:29 05/20/18 14:33 05/20/18 16:37 05/20/18 20:29 Bedside Glucose 134 mg/dl 89 mg/dl 108 mg/dl Hemoglobin 10.4 g/dL Hematocrit 32.1 % Test 05/21/18 07:22 7/22/18 07:56 Bedside Glucose 97 mg/dl White Blood Count 4.10 K/uL Red Blood Count 3.31 M/uL Hemoglobin 10.6 g/dL Hematocrit 32.3 % Mean Corpuscular Volume 97.6 fL Mean Corpuscular Hemoglobin 32.0 pg Mean Corpuscular Hemoglobin Concent 32.8 g/dl RDW Standard Deviation 44.1 fL RDW Coefficient of Variation 12.3 % Platelet Count 77 K/uL Mean Platelet Volume 9.0 fL Sodium Level 136 mmol/L Potassium Level 4.3 mmol/L Chloride Level 94 mmol/L Carbon Dioxide Level 37 mmol/L Anion Gap 4.0 mmol/L Blood Urea Nitrogen 17 mg/dl Creatinine 0.53 mg/dl Est Creatinine Clear Calc Drug Dose 136.9 ml/min Estimated GFR () 119.1 Estimated GFR (Non- 102.8 BUN/Creatinine Ratio 31.8 Random Glucose 108 mg/dl Calcium Level 8.4 mg/dl Magnesium Level 2.0 mg/dl Assessment and Plan This is a 78 year old male with a past medical history of severe COPD, chronic respiratory failure on chronic 3L of O2 continuously, hx. of rectal cancer s/p resection s/p colostomy, hx. of lung mass, recent atrial flutter diagnosis - presents due to weakness, fall, worsening shortness of breath Acute on Chronic Hypoxic/Hypercapnic Respiratory Failure secondary to Acute COPD Exacerbation 05/21 - there is some improvement clinically - will continue prednisone 40mg, monitor for tachyarrhythmias - not tolerating bipap well, refusing it at this point - nebs as needed - chronic 3L of O2 - may need to decrease this as well - continue doxy for a total of 5 days - appreciate pulmonology input - consulting palliative care - requested by family; patient wants to go home and would like to discuss home hospice options 05/20 - ABG on admission - CO2 >90 - there is chronic respiratory failure, he uses 3L of O2 continuously - initially on bipap, now off of it - started on 40mg of prednisone for the COPD, nebs as needed, doxycycline - pulmonology consulted for further input CO2 Narcosis - resolved - patient with altered mental status/disorientation on admission, now resolved Paroxysmal Atrial Flutter - was discharged last week from [facility] after converting from atrial flutter to NSR - currently in NSR - states he had trouble with metoprolol, so this was stopped - cardiology consulted to see if we should start a CCB - no anticoagulation due to thrombocytopenia, bleed risk, hemoptysis, etc. Hemoptysis in the setting of R Mediastinal/Hilar Mass 05/21 - consulting thoracic surgery for possible endobronchial ultrasound 05/20 - was scheduled to see cardiothoracic surgery next week for endobronchial ultrasound - presented here with hemoptysis; H/H stable - now on prednisone/doxycycline/nebs - once stable, family would prefer cardiothoracic surgery to see the patient here and possibly perform biopsy while inpatient Hx. of Rectal Cancer s/p Resection and Ostomy DVT ppx - SCDs DNR/DNI - pt. has living will
--- NOTE | 2018-05-21 11:49 | Cardiology Follow-Up ---
Subjective Subjective Date of Service: May 21, 2018. Pt evaluation today including: conversation w/ patient, conversation w/ family , physical exam, chart review, lab review, review of studies, review of inpatient medication list Additional Details: The patient had an uneventful night. The patient will have a lung biopsy tomorrow. Problem List Medical Problems: (1) Abdominal pain Status: Acute (2) Atrial ectopic tachycardia Status: Acute (3) COPD exacerbation Status: Acute (4) Failure to thrive in adult Status: Acute (5) Fall Status: Acute (6) Generalized weakness Status: Acute (7) Hypercapnia Status: Acute Review of Systems Constitutional: + weakness Respiratory: No cough, No sputum, No shortness of breath Cardiac: No chest pain, No edema, No palpitations Abdomen: No pain, No nausea, No vomiting, No diarrhea Musculoskeletal: No joint pain Neurologic: + weakness, + balance problems, No vertigo Objective Vital Signs Last Vital Signs Documentation Date Time Temp Pulse Resp B/P (MAP) Pulse Ox O2 Delivery O2 Flow Rate FiO2 05/21/18 11:17 83 95 05/21/18 08:20 Nasal Cannula 3.5 05/21/18 07:02 16 05/21/18 06:22 36.8 93/55 (68) 05/20/18 23:27 30 Physical Exam: General Appearance: no apparent distress ENT: hearing grossly normal Respiratory/Chest: no respiratory distress, no accessory muscle use, + decreased breath sounds Cardiovascular: regular rate, rhythm, no edema, no murmur Abdomen: + pertinent finding (+ostomy) Extremities: normal inspection, no pedal edema, no calf tenderness Neurologic/Psychiatric: no motor/sensory deficits, alert, normal mood/affect Skin: normal color, warm/dry, no rash Lymphatic: no adenopathy Assessment and Plan Impression: (1) paroxysmal atrial flutter (2) Mass of right lung (3) CHR AIRWAY OBSTRUCT NEC (4) Chronic hypercapnic respiratory failure (5) Thrombocytopenia (6) Anemia, macrocytic (7) History of rectal cancer (8) Colostomy in place Recommendations: The patient is currently clinically stable. He does not require any additional cardiac testing and is currently optimally medically managed to have his lung biopsied tomorrow. Medications: Current Inpatient Medications Medications (Trade) Dose Ordered Sig/Brittni Route Start Time Stop Time Status Last Admin Dose Admin Acetaminophen (Tylenol Tab) 650 mg Q4H PRN PO 05/20/18 03:15 06/19/18 03:14 Docusate Sodium (coLACE CAP) 100 mg BID PO 05/20/18 09:00 06/19/18 08:59 05/21/18 08:13 100 MG Ioversol (Optiray 320) 125 ml UD PRN IV 05/20/18 03:30 05/24/18 03:29 Prochlorperazine Edisylate 5 mg/ Syringe 5 ml @ 5 mls/min Q6H PRN IV 05/20/18 03:30 06/19/18 03:29 Miscellaneous (Iv Fluids Completed) 1 ea PRN PRN N/A 05/20/18 04:00 05/20/19 03:59 Ipratropium [place] (Atrovent 0.02% 0.5MG/2.5ML Neb) 0.5 mg Q4H PRN INH 05/20/18 04:45 06/19/18 04:44 Levalbuterol (Xopenex 1.25MG/ 0.5ML Neb) 1.25 mg Q4H PRN INH 05/20/18 04:45 06/19/18 04:44 Guaifenesin (Mucinex Contr Rel Tab) 600 mg Q12 PO 05/20/18 09:00 06/19/18 08:59 05/21/18 08:12 600 MG Benzonatate (Tessalon Perles Cap) 100 mg TID PRN PO 05/20/18 05:00 06/19/18 04:59 Prednisone (PredniSONE TAB) 40 mg DAILY PO 05/21/18 09:00 05/26/18 08:59 05/21/18 08:13 40 MG Doxycycline Hyclate (Vibramycin Cap) 100 mg BID PO 05/20/18 21:00 05/27/18 20:59 05/21/18 08:12 100 MG Insulin Glargine (Lantus Solostar Pen) 5 units DAILY SC 05/21/18 09:00 06/20/18 08:59 05/21/18 09:03 5 UNITS Insulin Aspart (novoLOG ASPART) SLIDING SCALE If C... ACHS SC 05/20/18 11:00 06/19/18 10:59 Glucose (Glucose 40% Gel) 15-30 GRAMS 15 GRAMS... UD PRN PO 05/20/18 06:00 06/19/18 05:59 Glucose (Glucose Chew Tab) 4-8 Tablets 4 Tabl... UD PRN PO 05/20/18 06:00 06/19/18 05:59 Dextrose (Dextrose 50% 50ML Syringe) 25-50ML 25ML FOR ... UD PRN IV 05/20/18 06:00 06/19/18 05:59 Glucagon (Glucagon Inj) 1 mg UD PRN SQ 05/20/18 06:00 06/19/18 05:59 Carbohydrates (Carbohydrates For Hypoglycemia) 15-30 GRAMS 15 grams if BSG 54-69... UD PRN PO 05/20/18 06:00 06/19/18 05:59 Ipratropium [place] (Atrovent 0.02% 0.5MG/2.5ML Neb) 0.5 mg Q6R INH 05/20/18 09:00 06/19/18 08:59 05/21/18 07:02 0.5 MG Levalbuterol (Xopenex 1.25MG/ 0.5ML Neb) 1.25 mg Q6R INH 05/20/18 09:00 06/19/18 08:59 05/21/18 07:02 1.25 MG Lab Results: Last 24 Hours Test 05/20/18 14:33 05/20/18 16:37 05/20/18 20:29 05/21/18 07:22 Hemoglobin 10.4 g/dL Hematocrit 32.1 % Bedside Glucose 89 mg/dl 108 mg/dl 97 mg/dl Test 05/21/18 07:56 05/21/18 11:20 White Blood Count 4.10 K/uL Red Blood Count 3.31 M/uL Hemoglobin 10.6 g/dL Hematocrit 32.3 % Mean Corpuscular Volume 97.6 fL Mean Corpuscular Hemoglobin 32.0 pg Mean Corpuscular Hemoglobin Concent 32.8 g/dl RDW Standard Deviation 44.1 fL RDW Coefficient of Variation 12.3 % Platelet Count 77 K/uL Mean Platelet Volume 9.0 fL Sodium Level 136 mmol/L Potassium Level 4.3 mmol/L Chloride Level 94 mmol/L Carbon Dioxide Level 37 mmol/L Anion Gap 4.0 mmol/L Blood Urea Nitrogen 17 mg/dl Creatinine 0.53 mg/dl Est Creatinine Clear Calc Drug Dose 136.9 ml/min Estimated GFR () 119.1 Estimated GFR (Non- 102.8 BUN/Creatinine Ratio 31.8 Random Glucose 108 mg/dl Calcium Level 8.4 mg/dl Magnesium Level 2.0 mg/dl Bedside Glucose 137 mg/dl
--- NOTE | 2018-05-21 12:35 | SURGICAL CONSULTATION ---
DATE OF CONSULTATION: 05/21/2018 Mr. Cabello was seen today. He is in the second floor ICU. Mr. Cabello is a 78-year-old retired patient with a history of rectal carcinoma. He has a history of a colorectal carcinoma and underwent abdominal perineal resection five years ago. He has a long history of cigarette smoking, but quit in 2012. His states that he has lost about 30 pounds in the last six months. He has a right hilar and right mediastinal process, which appeared to be neoplastic to me. I was asked to evaluate him and felt that an endobronchial ultrasound would give us any answer. I had the patient scheduled for last week, but he presented in atrial flutter and even though he converted back to sinus rhythm, there were still concerns about him from an anesthesia standpoint. I elected to discharge the patient and bring him back and is tentatively scheduled him for Tuesday05/24/2018 for an endobronchial ultrasound. The patient has become weaker and fell, although he did not really have any injuries. From a cardiac standpoint, he has been stable. The patient has been seen by Dr. Chase Jeter from pulmonary standpoint. He is concerned about his marked CO2 retention; however, this is a chronic state for the patient. I had a long talk with the patient, his son and his . They are very desirous of having a diagnosis. We cannot do a needle biopsy on him. I am going to tentatively put him on the schedule for tomorrow for an endobronchial ultrasound; however, I have explained to the family that it is possible he could end up on a ventilator afterwards. In addition, we would probably not intubate him, but would use a laryngeal mask airway. I would also probably proceed first with a regular bronchoscopy as it is possible we could make a diagnosis. The patient has developed some hemoptysis. This patient does not look good to me from an overall standpoint and it appeared to me he probably has metastatic disease. We will see how he looks in the morning, but tentatively schedule him for an endobronchial ultrasound tomorrow after my morning case. For specifics of this patient, please refer to my full office note done six days ago.
--- NOTE | 2018-05-21 13:32 | PULMONARY PROGRESS NOTE ---
DATE: 05/21/2018 TIME: 12:00 noon. SUBJECTIVE: The patient feels about the same. He is not complaining of significant shortness of breath. He is not having much cough. His was present during this evaluation. The patient has been resisting BiPAP. He has been refusing it for the most part. Apparently, he has only worn it for an hour or two once or twice. He continues to state the mask feels uncomfortable. OBJECTIVE: GENERAL: The patient was in no distress at rest. VITAL SIGNS: Temperature is 36.8. Heart rate is 87 per minute. The rhythm is irregular. Blood pressure is 93/55. LUNGS: Auscultation of the lung rodriguez reveals overall severely decreased breath sounds. Respiratory rate is 18. Saturation is 95% on 3.5 liters. Review of the record shows his saturations have been high all day. We are trying to keep his saturations low due to the hypercarbia. EXTREMITIES: Showed no cyanosis, clubbing or edema. LABORATORY DATA: White count is 4.1. Hemoglobin 10.6. Platelets are 77,000. Electrolytes show sodium 136, potassium 4.3, chloride 94, bicarbonate 37. Blood sugar is 137. BUN is 17 with creatinine 0.53. IMPRESSIONS: 1. Respiratory failure-acute on chronic both hypoxia and hypercarbia. 2. Right hilar mass - likely malignant. 3. Emphysema. Unfortunately, the patient is noncompliant with BiPAP. I am going to repeat a blood gas soon. This will help guide us to whether he is capable of undergoing bronchoscopy or not. I did discuss this with Dr. Gross today. I do have concerns about the high risk for respiratory failure if much sedation is used. This was explained to the patient and his very extensively. I encouraged the patient to keep trying BiPAP even for an hour or two at a time. The patient reportedly has DNR ordered. I explained to them that if we were to have the procedure done and if you were not ventilating properly, he would need to be agreeable to be on a ventilator.
[2018-05-22] VITALS (15 sets, daily range): BP systolic 92–144; BP diastolic 55–82; PULSE 69–106; TEMP 36.2–36.9; O2SAT 88–98
[2018-05-22] MEDS: IPRATROPIUM BROMIDE NEB SOLN 0.02% 2.5 ML VIAL INH SCH ×4 (02:00→19:38)
[2018-05-22] MEDS: LEVALBUTEROL 1.25MG/0.5ML NEB INH SCH ×4 (02:01→19:38)
[2018-05-22 06:32] LABS: HEMOGLOBIN 10.1 g/dL (14.0-18.0); MEAN CELL VOLUME 96.2 fL (80-100); MEAN CORPUSCULAR HEMOGLOBIN 32.4 pg (25-34); MEAN CORPUSCULAR HGB CONC 33.7 g/dl (32-36); RED CELL DISTRIBUTION WIDTH CV 12.4 % (11.5-14.5); RED CELL DISTRIBUTION WIDTH SD 43.4 fL (36.4-46.3); WHITE BLOOD COUNT 4.65 K/uL (4.8-10.8)
[2018-05-22 06:57] LABS: MEAN PLATELET VOLUME 9.4 fL (7.4-10.4); PLATELET COUNT 82 K/uL (130-400)
[2018-05-22] MEDS: INSULIN ASPART 100 UNITS/ML 3 ML PEN SC SCH ×4 (07:00→20:55)
[2018-05-22 07:08] LABS: CALCIUM 7.9 mg/dl (8.5-10.1); CREATININE 0.67 mg/dl (0.60-1.40); POTASSIUM 4.2 mmol/L (3.5-5.1)
[2018-05-22] MEDS: DOXYCYCLINE HYCLATE 100 MG CAP PO SCH ×2 (07:44→20:55)
[2018-05-22] MEDS: DOCUSATE SODIUM 100 MG CAP PO SCH ×2 (07:45→20:55)
[2018-05-22] MEDS: GUAIFENESIN 600 MG TABCR PO SCH ×2 (07:45→20:55)
[2018-05-22] MEDS: INSULIN GLARGINE SOLOSTAR 100 UNITS/ML 3 ML PEN SC SCH (07:47)
--- NOTE | 2018-05-22 10:44 | PULMONARY PROGRESS NOTE ---
DATE: 05/22/2018 TIME: 10:25 a.m. SUBJECTIVE: The patient is feeling about the same. He did wear the BiPAP intermittently last night. He estimates he could only tolerate it 1 or 1-1/2 hours at a time, but he is not complaining of the mask as much. He denies shortness of breath. His was present during this evaluation. Dr. Gross is planning on doing bronchoscopy soon. OBJECTIVE: GENERAL: The patient appears comfortable. VITAL SIGNS: Temperature is 36.9. Heart rate is 83 per minute. The rhythm is regular. Blood pressure is 94/60. Blood pressure has been typically running low. LUNGS: Lung rodriguez revealed diffusely decreased breath sounds. He was in no distress. Respiratory rate was 18. Saturation 98% on 4 liters. I have been asking nursing staff continuously to keep his saturation lower because of his hypercarbia. IMPRESSIONS: 1. Respiratory failure - acute on chronic with hypoxia and hypercarbia. 2. Right hilar mass - likely malignant. 3. Emphysema. COMMENTS AND RECOMMENDATIONS: The patient is going for bronchoscopy. This is the most stable that he will likely be based upon yesterday's blood gas. The pH yesterday improved to 7.40 with a pCO2 of 62 and a pO2 of 72. Anesthesia will need to monitor the patient carefully and if possible, give minimal sedation if possible. LINDSAY
[2018-05-22] MEDS ORDERED: KETAMINE HCL INJ 50 MG/ML 10 ML VIAL ONE (11:48)
[2018-05-22] MEDS ORDERED: FENTANYL CITRATE INJ 50 MCG/1 ML 2 ML VIAL ONE (11:48)
[2018-05-22] MEDS ORDERED: MIDAZOLAM HCL 1 MG/ML 2ML VIAL ONE (11:48)
[2018-05-22] MEDS ORDERED: PROPOFOL IV EMULSION 10 MG/ML 20 ML VIAL ONE (11:48)
[2018-05-22] MEDS ORDERED: LIDOCAINE HCL 2% 2 ML VIAL (20MG/ML) ONE (11:48)
--- NOTE | 2018-05-22 12:18 | Progress Note ---
Subjective Date of Service: May 22, 2018. Subjective Pt evaluation today including: conversation w/ patient, physical exam, lab review, review of studies, review of inpatient medication list Saw/examined the patient in room 230 He states he feels better, his breathing is at baseline Chronically on 3L of O2; his ABG is improved as of yesterday Denies any chest pain/palpitations +muscle weakness, +balance issues Problem List Medical Problems: (1) Abdominal pain Status: Acute (2) Atrial ectopic tachycardia Status: Acute (3) COPD exacerbation Status: Acute (4) Failure to thrive in adult Status: Acute (5) Fall Status: Acute (6) Generalized weakness Status: Acute (7) Hypercapnia Status: Acute Review of Systems Constitutional: + weakness, No fever, No chills Respiratory: + shortness of breath (chronic), + dyspnea on exertion, + dyspnea at rest, No cough, No sputum, No wheezing, No hemoptysis Cardiac: No chest pain, No edema, No palpitations Abdomen: No pain, No nausea, No vomiting, No diarrhea Medications Current Inpatient Medications Medications (Trade) Dose Ordered Sig/Brittni Route Start Time Stop Time Status Last Admin Dose Admin Acetaminophen (Tylenol Tab) 650 mg Q4H PRN PO 05/20/18 03:15 06/19/18 03:14 Docusate Sodium (coLACE CAP) 100 mg BID PO 05/20/18 09:00 06/19/18 08:59 05/22/18 07:45 100 MG Ioversol (Optiray 320) 125 ml UD PRN IV 05/20/18 03:30 05/24/18 03:29 Prochlorperazine Edisylate 5 mg/ Syringe 5 ml @ 5 mls/min Q6H PRN IV 05/20/18 03:30 06/19/18 03:29 Miscellaneous (Iv Fluids Completed) 1 ea PRN PRN N/A 05/20/18 04:00 05/20/19 03:59 Ipratropium [place] (Atrovent 0.02% 0.5MG/2.5ML Neb) 0.5 mg Q4H PRN INH 05/20/18 04:45 06/19/18 04:44 Levalbuterol (Xopenex 1.25MG/ 0.5ML Neb) 1.25 mg Q4H PRN INH 05/20/18 04:45 06/19/18 04:44 Guaifenesin (Mucinex Contr Rel Tab) 600 mg Q12 PO 05/20/18 09:00 06/19/18 08:59 05/22/18 07:45 600 MG Benzonatate (Tessalon Perles Cap) 100 mg TID PRN PO 05/20/18 05:00 06/19/18 04:59 Prednisone (PredniSONE TAB) 40 mg DAILY PO 05/21/18 09:00 05/26/18 08:59 05/22/18 07:45 40 MG Doxycycline Hyclate (Vibramycin Cap) 100 mg BID PO 05/20/18 21:00 05/27/18 20:59 05/22/18 07:44 100 MG Insulin Glargine (Lantus Solostar Pen) 5 units DAILY SC 05/21/18 09:00 06/20/18 08:59 05/22/18 07:47 5 UNITS Insulin Aspart (novoLOG ASPART) SLIDING SCALE If C... ACHS SC 05/20/18 11:00 06/19/18 10:59 Glucose (Glucose 40% Gel) 15-30 GRAMS 15 GRAMS... UD PRN PO 05/20/18 06:00 06/19/18 05:59 Glucose (Glucose Chew Tab) 4-8 Tablets 4 Tabl... UD PRN PO 05/20/18 06:00 06/19/18 05:59 Dextrose (Dextrose 50% 50ML Syringe) 25-50ML 25ML FOR ... UD PRN IV 05/20/18 06:00 06/19/18 05:59 Glucagon (Glucagon Inj) 1 mg UD PRN SQ 05/20/18 06:00 06/19/18 05:59 Carbohydrates (Carbohydrates For Hypoglycemia) 15-30 GRAMS 15 grams if BSG 54-69... UD PRN PO 05/20/18 06:00 06/19/18 05:59 Ipratropium [place] (Atrovent 0.02% 0.5MG/2.5ML Neb) 0.5 mg Q6R INH 05/20/18 09:00 06/19/18 08:59 05/22/18 07:09 0.5 MG Levalbuterol (Xopenex 1.25MG/ 0.5ML Neb) 1.25 mg Q6R INH 05/20/18 09:00 06/19/18 08:59 05/22/18 07:09 1.25 MG Objective Vital Signs Date Time Temp Pulse Resp B/P (MAP) Pulse Ox O2 Delivery O2 Flow Rate FiO2 05/22/18 08:00 Nasal Cannula 4.0 05/22/18 07:09 83 18 98 Nasal Cannula 4.0 05/22/18 06:36 36.9 97 20 94/60 (71) 97 Nasal Cannula 4.0 05/22/18 03:12 36.7 69 20 92/61 (71) 95 BiPAP 05/22/18 02:02 78 97 30 05/22/18 02:02 78 21 97 BiPAP/CPAP 30 05/21/18 23:17 36.7 72 20 99/66 (77) 98 Nasal Cannula 4.0 05/21/18 22:00 Nasal Cannula 4.0 05/21/18 21:54 82 97 30 05/21/18 19:35 88 16 97 Nasal Cannula 4.0 05/21/18 19:25 37.1 88 24 100/60 (73) 97 Nasal Cannula 4.0 05/21/18 15:48 36.9 83 18 112/65 (81) 96 Nasal Cannula 3.0 05/21/18 15:25 Nasal Cannula 3.0 BiPAP 05/21/18 14:38 86 16 96 Nasal Cannula 3.0 Physical Exam General Appearance: no apparent distress Respiratory/Chest: no respiratory distress, no accessory muscle use, + decreased breath sounds Cardiovascular: regular rate, rhythm, no edema, no murmur Abdomen: + pertinent finding (+ostomy) Neurologic/Psychiatric: no motor/sensory deficits, alert, normal mood/affect Laboratory Results Last 24 Hours Test 05/21/18 13:09 05/21/18 16:19 05/21/18 20:18 05/22/18 06:04 Arterial Blood pH 7.40 Arterial Blood Partial Pressure CO2 62 mmHg Arterial Blood Partial Pressure O2 72 mm/Hg Arterial Blood HCO3 37 mmol/L Arterial Blood Oxygen Saturation 93.7 % Arterial Blood Base Excess 10.6 mEq/L Arterial Blood Gas Delivery 3 L [place] Test POS Bedside Glucose 149 mg/dl 132 mg/dl White Blood Count 4.65 K/uL Red Blood Count 3.12 M/uL Hemoglobin 10.1 g/dL Hematocrit 30.0 % Mean Corpuscular Volume 96.2 fL Mean Corpuscular Hemoglobin 32.4 pg Mean Corpuscular Hemoglobin Concent 33.7 g/dl RDW Standard Deviation 43.4 fL RDW Coefficient of Variation 12.4 % Platelet Count 82 K/uL Mean Platelet Volume 9.4 fL Platelet Estimate DECREASED Sodium Level 131 mmol/L Potassium Level 4.2 mmol/L Chloride Level 93 mmol/L Carbon Dioxide Level 36 mmol/L Anion Gap 2.0 mmol/L Blood Urea Nitrogen 18 mg/dl Creatinine 0.67 mg/dl Est Creatinine Clear Calc Drug Dose 109.1 ml/min Estimated GFR () 108.2 Estimated GFR (Non- 93.3 BUN/Creatinine Ratio 27.0 Random Glucose 111 mg/dl Calcium Level 7.9 mg/dl Test 05/22/18 07:11 Bedside Glucose 104 mg/dl Assessment and Plan This is a 78 year old male with a past medical history of severe COPD, chronic respiratory failure on chronic 3L of O2 continuously, hx. of rectal cancer s/p resection s/p colostomy, hx. of lung mass, recent atrial flutter diagnosis - presents due to weakness, fall, worsening shortness of breath Acute on Chronic Hypoxic/Hypercapnic Respiratory Failure secondary to Acute COPD Exacerbation 05/22 - continue prednisone 40mg x5 days total - continue doxycycline for a five day course - continue 3L of O2 - bipap as tolerated (does not tolerate it) - palliative care consulted for possible home hospice 05/21 - there is some improvement clinically - will continue prednisone 40mg, monitor for tachyarrhythmias - not tolerating bipap well, refusing it at this point - nebs as needed - chronic 3L of O2 - may need to decrease this as well - continue doxy for a total of 5 days - appreciate pulmonology input - consulting palliative care - requested by family; patient wants to go home and would like to discuss home hospice options 05/20 - ABG on admission - CO2 >90 - there is chronic respiratory failure, he uses 3L of O2 continuously - initially on bipap, now off of it - started on 40mg of prednisone for the COPD, nebs as needed, doxycycline - pulmonology consulted for further input CO2 Narcosis - resolved - patient with altered mental status/disorientation on admission, now resolved Paroxysmal Atrial Flutter - was discharged last week from [facility] after converting from atrial flutter to NSR - currently in NSR - states he had trouble with metoprolol, so this was stopped - cardiology consulted to see if we should start a CCB - no anticoagulation due to thrombocytopenia, bleed risk, hemoptysis, etc. Hemoptysis in the setting of R Mediastinal/Hilar Mass 05/22 - bronchoscopic evaluation to be done today with thoracic surgery - endobronchial ultrasound and biopsy 05/21 - consulting thoracic surgery for possible endobronchial ultrasound 05/20 - was scheduled to see cardiothoracic surgery next week for endobronchial ultrasound - presented here with hemoptysis; H/H stable - now on prednisone/doxycycline/nebs - once stable, family would prefer cardiothoracic surgery to see the patient here and possibly perform biopsy while inpatient Hx. of Rectal Cancer s/p Resection and Ostomy DVT ppx - SCDs DNR/DNI - pt. has living will
[2018-05-22] MEDS ORDERED: ATROPINE SULFATE 0.1 MG/ML 5ML SYR IV PRN (13:15)
[2018-05-22] MEDS ORDERED: ONDANSETRON INJ 2 MG/ML 2 ML VIAL IV PRN (13:15)
[2018-05-22] MEDS ORDERED: EpHEDrine SULFATE INJ 50 MG/ML AMP IV PRN (13:15)
[2018-05-22] MEDS ORDERED: FENTANYL CITRATE INJ 50 MCG/1 ML 2 ML VIAL IV PRN (13:15)
--- NOTE | 2018-05-22 14:24 | Palliative Care Progress Note ---
Palliative Care Progress Note Date of Service May 22, 2018. Subjective Received consult on this patient, however patient was already in the OR, rechecked later this afternoon patient had not yet returned to the room. We will attempt to see patient tomorrow and complete full consult then. Thank you very much for this consult Objective Laboratory Results Last 24 Hours
--- NOTE | 2018-05-22 14:43 | DIAGNOSTIC IMAGING REPORT ---
CHEST ONE VIEW PORTABLE HISTORY: 78 years-old Male s/p FOB acute shortness of breath COMPARISON: CTA of the chest 05/20/2018 TECHNIQUE: Portable AP view of the chest FINDINGS: Cardiac silhouette is upper limits of normal in size. Emphysema with chronic interstitial coarsening. Bullae noted within the upper lung zones. No pneumothorax, pleural effusion, lobar airspace consolidation or overt pulmonary edema. Degenerative changes of the shoulders and spine. IMPRESSION: 1. No acute process. 2. Advanced emphysema with chronic interstitial coarsening. The above report was generated using voice recognition software. It may contain grammatical, syntax or spelling errors. Electronically signed by: Ray Riojas M.D. 05/22/2018 2:41 PM Dictated Date/Time: 05/22/2018 2:40 PM
--- NOTE | 2018-05-22 15:02 | Anesthesiology Progress Note ---
Anesthesia Post Op Note Date & Time May 22, 2018 at 15:00 Vital Signs Pain Intensity: 0 Vital Signs Past 12 Hours Date Time Temp Pulse Resp B/P (MAP) Pulse Ox O2 Delivery O2 Flow Rate FiO2 05/22/18 14:45 36.6 97 16 138/83 97 BiPAP 05/22/18 14:39 Mask 05/22/18 14:35 36.6 104 16 138/83 97 BiPAP 05/22/18 14:30 36.6 101 16 143/87 97 BiPAP 05/22/18 14:28 88 95 50 05/22/18 14:20 16 159/85 96 BiPAP 05/22/18 14:13 36.8 114 16 154/96 96 BiPAP 05/22/18 08:00 Nasal Cannula 4.0 05/22/18 07:09 83 18 98 Nasal Cannula 4.0 05/22/18 06:36 36.9 97 20 94/60 (71) 97 Nasal Cannula 4.0 05/22/18 03:12 36.7 69 20 92/61 (71) 95 BiPAP Notes Mental Status: alert / awake / arousable, participated in evaluation Pt Amnestic to Procedure: Yes Nausea / Vomiting: adequately controlled Pain: adequately controlled Airway Patency, RR, SpO2: stable & adequate BP & HR: stable & adequate Hydration State: stable & adequate Anesthetic Complications: no major complications apparent Patient placed on BiPAP after surgery and tolerated well. Will be transferred to the floor with BiPAP in place.
--- NOTE | 2018-05-22 17:17 | OPERATIVE REPORT ---
DATE OF OPERATION: 05/22/2018 PREOPERATIVE DIAGNOSIS: Mediastinal and right hilar adenopathy. POSTOPERATIVE DIAGNOSIS: Probable small cell lung carcinoma. PROCEDURE: Fiberoptic bronchoscopy with biopsy (forceps and brush). SURGEON: Chase Gross MD ELECTRONIC COMMUNICATIONS TECHNICIAN: Ashok Schroeder, respiratory therapy. ANESTHESIA: Light sedation with topical lidocaine. SPECIFICS OF PROCEDURE: Angel Cabello is a 78-year-old male that I met who is worrisome. He has been losing weight. He is becoming weaker on his feet. I saw him about a week ago in the office and set him up for possible endobronchial ultrasound. He has had a very large mediastinal subcarinal right hilar adenopathy. I had a long talk with the patient and his and his son explained that this is most likely a malignant process; however, there are different malignancies including lymphoma, non-small cell lung carcinoma, small cell lung carcinoma or possibly metastatic colorectal carcinoma. The patient does have a history of colorectal carcinoma. In fact underwent a subtotal colectomy 5 years ago. Last week, the patient; however, has had preadmission testing. He was found to have atrial flutter. He was canceled and I scheduled him for this week; however, he came back in the hospital as he had fallen and they were concerned about him. He is becoming weaker. The patient has terrible lung function. In fact, his pCO2 has been as high as the 90s and probably at rest is in the 70s. He does not like to wear his BiPAP. He also had a long history of cigarette smoking. On 05/22/2018, I took the patient to the operating room and under light sedation, I topically anesthetized his nares and did a fiberoptic bronchoscopy. He had obviously changes of his right upper lobe orifice and the distal right mainstem bronchus. I biopsied this with a forceps and there was obvious heaping up of the right mainstem bronchus as it went into the upper lobe. We did touch preps and this showed what appeared to be a small cell lung carcinoma. I did a couple more biopsies and did brushes also. The patient was a bit tenuous. His saturations started dropping, so we stopped. He had no bleeding at the conclusion of the case. He really did not lose any blood. He woke up nicely after he had been on the BiPAP for a while and saturations improved. He was transported back to the recovery room in a stable but tenuous condition given his preoperative state. DETAILS OF PROCEDURE: The patient was brought to the operating room and laid in supine position. Light sedation was given. We had anesthetized him with a lidocaine nebulizer and then anesthetized his nares. I went into his left naris and was able to get down through the turbinate although we had some mild bleeding. We then went down and cut to his epiglottis without difficulty. His cords appeared to move normally. We sprayed liquid lidocaine over this and then went through this without difficulty. He tolerated this part quite well actually. We went down and also sprayed his trachea. Upon coming down, I went down into the left mainstem bronchus. The ramón was relatively sharp. The left mainstem bronchus, left upper lobe bronchus, left lower lobe bronchus and the tertiary airways, he had no evidence of any blood, mucus or any endobronchial lesions. Back down on the right side, the distal right main had abnormal looking mucosa. There appeared to be some mild narrowing of the right upper lobe bronchus, although I could get the scope through this. I then went down to the middle lobe as well as the lower lobe on the right and really saw no endobronchial lesions here. There was an abnormality with heaping up of the distal right main bronchus just prior to the takeoff of the right upper lobe orifice. This was from about the 9 o'clock to the 7 o'clock position. Using biopsy forceps, I biopsied this. We did a touch prep. We did a rapid on-site evaluation and it appeared that these were malignant cells. I did 2 more biopsies. We had some mild bleeding which was controlled with cold saline and epinephrine. I then did brushings of this also. The other touch preps were evaluated. Dr. Bashir Call felt that we were probably dealing with small cell lung CA. Patient's saturations began to drop. He got down into the low 80s and he was a bit more lethargic than I liked. For this reason, I suctioned him out. He had no further bleeding. Really did not lose much in the way of any blood. I suctioned out both airways and slowly removed the bronchoscope. We had no bleeding from the turbinates. We put him on a BiPAP and his saturations came up quite nicely. He was awake and alert in the PACU. He was transported back to the telemetry in improved condition. I attest to the content of the Intraoperative Record and any orders documented therein. Any exception s are noted below.
[2018-05-23] VITALS (14 sets, daily range): BP systolic 94–111; BP diastolic 55–73; PULSE 73–120; TEMP 36.5–36.8; O2SAT 88–98
[2018-05-23] MEDS: LEVALBUTEROL 1.25MG/0.5ML NEB INH SCH ×4 (01:50→19:36)
[2018-05-23] MEDS: IPRATROPIUM BROMIDE NEB SOLN 0.02% 2.5 ML VIAL INH SCH ×4 (01:50→19:36)
[2018-05-23 06:06] LABS: HEMATOCRIT 31.6 % (42-52); HEMOGLOBIN 10.2 g/dL (14.0-18.0); MEAN CELL VOLUME 94.6 fL (80-100); MEAN CORPUSCULAR HEMOGLOBIN 30.5 pg (25-34); MEAN CORPUSCULAR HGB CONC 32.3 g/dl (32-36); MEAN PLATELET VOLUME 9.5 fL (7.4-10.4); PLATELET COUNT 107 K/uL (130-400); RED CELL DISTRIBUTION WIDTH CV 12.3 % (11.5-14.5); WHITE BLOOD COUNT 6.56 K/uL (4.8-10.8)
[2018-05-23 06:35] LABS: CREATININE 0.54 mg/dl (0.60-1.40); POTASSIUM 4.4 mmol/L (3.5-5.1)
[2018-05-23] MEDS: INSULIN ASPART 100 UNITS/ML 3 ML PEN SC SCH ×4 (07:00→20:37)
[2018-05-23] MEDS: DOXYCYCLINE HYCLATE 100 MG CAP PO SCH ×2 (08:37→21:21)
[2018-05-23] MEDS: DOCUSATE SODIUM 100 MG CAP PO SCH ×2 (08:37→21:21)
[2018-05-23] MEDS: GUAIFENESIN 600 MG TABCR PO SCH ×2 (08:37→21:21)
[2018-05-23] MEDS: INSULIN GLARGINE SOLOSTAR 100 UNITS/ML 3 ML PEN SC SCH (08:37)
[2018-05-23] MEDS ORDERED: NURSING VERBAL MED ORDER ONE ×2 (09:15→10:30)
--- NOTE | 2018-05-23 09:20 | Anesthesiology Progress Note ---
Anesthesia Post Op Note Date & Time May 23, 2018 at 09:19 Vital Signs Pain Intensity: 0.0 Vital Signs Past 12 Hours Date Time Temp Pulse Resp B/P (MAP) Pulse Ox O2 Delivery O2 Flow Rate FiO2 05/23/18 07:56 96 Nasal Cannula 6.0 05/23/18 07:24 36.6 81 18 111/63 (79) 96 Nasal Cannula 6.0 05/23/18 06:50 82 20 97 Nasal Cannula 3.0 05/23/18 06:26 36.6 78 24 98/61 (73) 97 Nasal Cannula 3.0 05/23/18 03:45 36.5 73 22 94/55 (68) 94 Nasal Cannula 3.0 05/23/18 01:51 80 22 98 Nasal Cannula 4.0 05/22/18 23:26 97 Nasal Cannula 4.0 Humidified Oxygen 05/22/18 23:11 36.2 82 26 95/62 (73) 97 Nasal Cannula 4.0 Notes Mental Status: alert / awake / arousable, participated in evaluation Pt Amnestic to Procedure: Yes Nausea / Vomiting: adequately controlled Pain: adequately controlled Airway Patency, RR, SpO2: stable & adequate BP & HR: stable & adequate Hydration State: stable & adequate Anesthetic Complications: no major complications apparent
[2018-05-23] MEDS: POLYETHYLENE (MIRALAX) 17 GM PACK PO PRN (10:48)
[2018-05-23] MEDS: BOOST GLUCOSE CONTROL VANILLA PO SCH ×2 (11:54→16:46)
--- NOTE | 2018-05-23 15:02 | PULMONARY PROGRESS NOTE ---
DATE: 05/23/2018 TIME: 2:50 p.m. SUBJECTIVE: The patient does not complain of anything today. He does not have much recall from his bronchoscopy done yesterday. He states he is coughing up a little bloody mucus. This would not be expected. He was having a mild amount of hemoptysis initially and then he had biopsies done. The final path reports are still pending. OBJECTIVE: GENERAL: The patient looks to be in no distress at rest. VITAL SIGNS: Temperature was 36.6. Heart rate was 92 per minute. The rhythm was regular. Blood pressure is 103/63. LUNGS: Lung rodriguez revealed severely diminished breath sounds. No wheezing was heard. Respiratory rate 18. Saturation 96% on 3 liters. ABDOMEN: Shows it to be soft. The colostomy was noted. EXTREMITIES: Showed no edema. LABORATORY DATA: White count today was 6.56. Hemoglobin 10.2. Platelets 107,000. Electrolytes show sodium 130, potassium 4.4, chloride 92, bicarbonate 35. BUN was 18 with a creatinine of 0.54. IMPRESSIONS: 1. Respiratory failure - acute on chronic with hypoxia and hypercarbia. 2. Right hilar mass - likely malignant - biopsy pending. 3. Emphysema. COMMENTS AND RECOMMENDATIONS: The patient seems about stable. We are waiting for the final results from the biopsy. Small cell was suspected. I would suggest getting the patient out of bed to the chair. Perhaps physical therapy would be helpful and strengthening him a bit. I believe the prednisone can be decreased to 30 mg daily. I would continue with his breathing treatments.
--- NOTE | 2018-05-23 15:43 | SURGERY PROGRESS NOTE ---
DATE: 05/23/2018 Mr. Cabello tolerated his bronchoscopy quite well yesterday. We were a bit worried about him; however, he is down to 3 liters O2 with 96% saturation. He is in a regular rhythm. Hemoglobin stable. He had some mild bloody sputum which I explained to the patient and his would be expected. Small cell carcinoma is a preliminary diagnosis; however, still waiting for the finals. He is being managed from a pulmonary standpoint by Dr. Jeter and his help was greatly appreciated. Hopefully, we will get pathology out the next day or 2.
--- NOTE | 2018-05-23 16:04 | Palliative Care Consultation ---
Consultation Date of Consultation: May 23, 2018. Requesting Physician: Dr Calhoun Attending Physician: Dr Pickard Reason for Consultation: Discuss goals of care. Patient's CODE STATUS is currently DNR History of Present Illness Patient is a 78-year-old male with a past history of rectal cancer status post resection and colostomy in 2012 patient did not receive any chemo or XRT at that time. Patient presented on 721 after a fall at home with increased weakness. Patient had been recently diagnosed with new onset a flutter and was started on metoprolol. Patient was in sinus rhythm, he was found on CT scan to have right upper lobe/mediastinal mass and underwent EBUS on 05/22-final pathology pending. Discussed with patient at length his current status including weakness-encouraged inpatient rehab stay if available for strengthening prior to discharge home. Discussed some possible treatment options, patient asked about choosing no treatment at all-total patient that that was always an option. No family present at the time of my visit. Patient is and lives with his son who is age 52-gave him information regarding outpatient palliative care follow-up. Patient's ABG on admission had a PCO2 of 81, he is been on O2 as needed for over 5 years. Patient is a former smoker, he quit in 2012. Past Medical/Surgical History Medical History: A flutter-not on anticoagulation, diagnosed 05/16, anemia baseline hemoglobin 1011, COPD-on as needed O2 at home, status post resection of rectal cancer in 2012-did not receive chemo or radiation, thrombocytopenia. Surgical History: Colon resection, colostomy Family History Diabetes, hypertension, lung disease, colon cancer Social History Smoking Status: Former Smoker (Quit 2012) History of Alcohol Use: No Drug Use: none Marital Status: Housing Status: lives with family (Lives with his and 52-year-old son) Occupation Status: retired Review of Systems Constitutional: No fever, No chills Eyes: No worsening of vision ENT: No hearing loss Respiratory: + dyspnea on exertion, No cough Cardiac: No chest pain Abdomen: No pain Musculoskeletal: No joint pain Male : No dysuria Neurologic: + weakness Psychiatric: No anxiety Endo: + fatigue Skin: No new/changing skin lesions Allergies Coded Allergies: Metoprolol (Verified Adverse Reaction, Mild, 0, 05/20/18) weakness Morphine (Verified Adverse Reaction, Unknown, GI SYMPTOMS, 05/16/18) dry heaving and convulsing-during recent [facility] surgery in 2012. Nitroglycerin (Verified Adverse Reaction, Unknown, GI SYMPTOMS, 05/16/18) at the same time of morphine allergy. heaving and convulsing. Medications Current Inpatient Medications Medications (Trade) Dose Ordered Sig/Brittni Route Start Time Stop Time Status Last Admin Dose Admin Acetaminophen (Tylenol Tab) 650 mg Q4H PRN PO 05/20/18 03:15 06/19/18 03:14 Docusate Sodium (coLACE CAP) 100 mg BID PO 05/20/18 09:00 06/19/18 08:59 05/23/18 08:37 100 MG Ioversol (Optiray 320) 125 ml UD PRN IV 05/20/18 03:30 05/24/18 03:29 Prochlorperazine Edisylate 5 mg/ Syringe 5 ml @ 5 mls/min Q6H PRN IV 05/20/18 03:30 06/19/18 03:29 Miscellaneous (Iv Fluids Completed) 1 ea PRN PRN N/A 05/20/18 04:00 05/20/19 03:59 Ipratropium [place] (Atrovent 0.02% 0.5MG/2.5ML Neb) 0.5 mg Q4H PRN INH 05/20/18 04:45 06/19/18 04:44 Levalbuterol (Xopenex 1.25MG/ 0.5ML Neb) 1.25 mg Q4H PRN INH 05/20/18 04:45 06/19/18 04:44 Guaifenesin (Mucinex Contr Rel Tab) 600 mg Q12 PO 05/20/18 09:00 06/19/18 08:59 05/23/18 08:37 600 MG Benzonatate (Tessalon Perles Cap) 100 mg TID PRN PO 05/20/18 05:00 06/19/18 04:59 Doxycycline Hyclate (Vibramycin Cap) 100 mg BID PO 05/20/18 21:00 05/27/18 20:59 05/23/18 08:37 100 MG Insulin Glargine (Lantus Solostar Pen) 5 units DAILY SC 05/21/18 09:00 06/20/18 08:59 05/23/18 08:37 5 UNITS Insulin Aspart (novoLOG ASPART) SLIDING SCALE If C... ACHS SC 05/20/18 11:00 06/19/18 10:59 Glucose (Glucose 40% Gel) 15-30 GRAMS 15 GRAMS... UD PRN PO 05/20/18 06:00 06/19/18 05:59 Glucose (Glucose Chew Tab) 4-8 Tablets 4 Tabl... UD PRN PO 05/20/18 06:00 06/19/18 05:59 Dextrose (Dextrose 50% 50ML Syringe) 25-50ML 25ML FOR ... UD PRN IV 05/20/18 06:00 06/19/18 05:59 Glucagon (Glucagon Inj) 1 mg UD PRN SQ 05/20/18 06:00 06/19/18 05:59 Carbohydrates (Carbohydrates For Hypoglycemia) 15-30 GRAMS 15 grams if BSG 54-69... UD PRN PO 05/20/18 06:00 06/19/18 05:59 Ipratropium [place] (Atrovent 0.02% 0.5MG/2.5ML Neb) 0.5 mg Q6R INH 05/20/18 09:00 06/19/18 08:59 05/23/18 14:25 0.5 MG Levalbuterol (Xopenex 1.25MG/ 0.5ML Neb) 1.25 mg Q6R INH 05/20/18 09:00 06/19/18 08:59 05/23/18 14:25 1.25 MG Polyethylene (Miralax Powder Packet) 17 gm DAILY PRN PO 05/23/18 09:15 06/22/18 09:14 05/23/18 10:48 17 GM Enteral Nutritional Formula (Boost Glucose Control) 1 can TIDM PO 05/23/18 11:30 06/22/18 11:29 05/23/18 11:54 1 CAN Prednisone (PredniSONE TAB) 30 mg DAILY PO 05/24/18 09:00 05/26/18 08:59 Physical Exam Date Time Temp Pulse Resp B/P (MAP) Pulse Ox O2 Delivery O2 Flow Rate FiO2 05/23/18 15:36 36.8 88 16 109/73 (85) 94 Nasal Cannula 3.0 05/23/18 14:26 92 18 96 Nasal Cannula 3.0 05/23/18 11:57 36.6 78 18 103/63 (76) 98 Nasal Cannula 4.0 05/23/18 07:56 96 Nasal Cannula 6.0 05/23/18 07:24 36.6 81 18 111/63 (79) 96 Nasal Cannula 6.0 05/23/18 06:50 82 20 97 Nasal Cannula 3.0 05/23/18 06:26 36.6 78 24 98/61 (73) 97 Nasal Cannula 3.0 05/23/18 03:45 36.5 73 22 94/55 (68) 94 Nasal Cannula 3.0 05/23/18 01:51 80 22 98 Nasal Cannula 4.0 05/22/18 23:26 97 Nasal Cannula 4.0 Humidified Oxygen 05/22/18 23:11 36.2 82 26 95/62 (73) 97 Nasal Cannula 4.0 05/22/18 21:04 90 Nasal Cannula 4.0 Humidified Oxygen 05/22/18 19:40 95 16 98 Nasal Cannula 6.0 05/22/18 19:32 36.3 102 18 143/80 (101) 93 Nasal Cannula 6.0 05/22/18 16:30 106 142/81 (101) 88 Nasal Cannula 4.0 05/22/18 16:00 36.4 103 114/65 (81) 05/22/18 16:00 95 Nasal Cannula 4.0 05/22/18 15:45 101 143/82 (102) 96 Oxymask 4.0 General Appearance: no apparent distress (Appears fatigued, weak) Eyes: EOMI ENT: hearing grossly normal Respiratory: + pertinent finding (Diminished breath sounds bilaterally, no respiratory distress, mild increased work of breathing with prolonged conversation) Cardiovascular: regular rate, rhythm, no edema Abdomen: non tender Musculoskeletal: abnormal strength Neurologic/Psychiatric: alert, oriented x 3 Skin: warm/dry, + pertinent finding (Pale) Laboratory Results Last 24 Hours Test 05/22/18 16:15 05/22/18 20:15 05/23/18 05:24 05/23/18 11:44 Bedside Glucose 177 mg/dl 166 mg/dl 116 mg/dl White Blood Count 6.56 K/uL Red Blood Count 3.34 M/uL Hemoglobin 10.2 g/dL Hematocrit 31.6 % Mean Corpuscular Volume 94.6 fL Mean Corpuscular Hemoglobin 30.5 pg Mean Corpuscular Hemoglobin Concent 32.3 g/dl RDW Standard Deviation 42.0 fL RDW Coefficient of Variation 12.3 % Platelet Count 107 K/uL Mean Platelet Volume 9.5 fL Sodium Level 130 mmol/L Potassium Level 4.4 mmol/L Chloride Level 92 mmol/L Carbon Dioxide Level 35 mmol/L Anion Gap 3.0 mmol/L Blood Urea Nitrogen 18 mg/dl Creatinine 0.54 mg/dl Est Creatinine Clear Calc Drug Dose 135.4 ml/min Estimated GFR () 118.2 Estimated GFR (Non- 102.0 BUN/Creatinine Ratio 33.5 Random Glucose 80 mg/dl Calcium Level 8.0 mg/dl Assessment & Plan Palliative Performance Scale: 40 % (1) Palliative care encounter Assessment & Plan: Discussed patient's goals of care which include regaining strength and returning home. Patient at this point is not sure whether or not to pursue treatment for his right upper lobe mass which is likely cancer. Patient given information to follow-up as an outpatient pending oncology consult to assist with decision making with patient and family. We will continue to follow-up patient is hospitalized. (2) Generalized weakness Status: Acute Assessment & Plan: Patient is being referred for possible rehab-encourage patient to participate and short-term rehab to regain strength to more safely return home. (3) Anemia, macrocytic Status: Chronic Assessment & Plan: Patient is at his baseline hemoglobin of 10, will need to have continued follow-up as outpatient (4) Mass of right lung Status: Acute Assessment & Plan: Patient is status post EBUS -pathology pending. Counseling and Coordination Total time spent 70 minutes with greater than 50% of the time spent at bedside discussing with patient possible treatment options, goals of care, and confirming current CODE STATUS of DNR.
--- NOTE | 2018-05-23 17:44 | Progress Note ---
Medicine Progress Note Date & Time of Visit: May 23, 2018 at 17:22. Subjective Seen resting in bed, Having lunch asked permission and the patient has allowed me to evaluate him On 3 L of nasal cannula, not in distress, comfortable States he feels somewhat better Breathing is slightly better Has occasional cough No chest pain Denies any symptoms Objective Last 8 Hrs Date Time Temp Pulse Resp B/P (MAP) Pulse Ox O2 Delivery O2 Flow Rate FiO2 05/23/18 15:36 36.8 88 16 109/73 (85) 94 Nasal Cannula 3.0 05/23/18 14:26 92 18 96 Nasal Cannula 3.0 05/23/18 13:10 120 88 05/23/18 11:57 36.6 78 18 103/63 (76) 98 Nasal Cannula 4.0 Physical Exam: General-oriented 3, speaking in sentences, no accessory muscle use Head- atraumatic Eyes- PERRL, EOMI, anicteric ENT- oropharynx clear Neck- supple, no JVD, no adenopathy, no thyromegaly; carotids +2/2, no bruits appreciated Lungs-diminished breath sounds bilaterally, no wheezing, occasional rales Heart-normal rate, regular rhythm; no murmurs Abdomen- normal bowel sounds, soft, nontender, no masses or hepatosplenomegaly Extremities- no pretibial edema, no calf tenderness; peripheral pulses intact Neuro- alert, oriented x 3; no gross focal neurologic deficits Skin- warm & dry Laboratory Results: Last 24 Hours Test 05/22/18 20:15 05/23/18 05:24 05/23/18 11:44 05/23/18 16:08 Bedside Glucose 166 mg/dl 116 mg/dl 135 mg/dl White Blood Count 6.56 K/uL Red Blood Count 3.34 M/uL Hemoglobin 10.2 g/dL Hematocrit 31.6 % Mean Corpuscular Volume 94.6 fL Mean Corpuscular Hemoglobin 30.5 pg Mean Corpuscular Hemoglobin Concent 32.3 g/dl RDW Standard Deviation 42.0 fL RDW Coefficient of Variation 12.3 % Platelet Count 107 K/uL Mean Platelet Volume 9.5 fL Sodium Level 130 mmol/L Potassium Level 4.4 mmol/L Chloride Level 92 mmol/L Carbon Dioxide Level 35 mmol/L Anion Gap 3.0 mmol/L Blood Urea Nitrogen 18 mg/dl Creatinine 0.54 mg/dl Est Creatinine Clear Calc Drug Dose 135.4 ml/min Estimated GFR () 118.2 Estimated GFR (Non- 102.0 BUN/Creatinine Ratio 33.5 Random Glucose 80 mg/dl Calcium Level 8.0 mg/dl Assessment & Plan This is a 78 year old male with a past medical history of severe COPD, chronic respiratory failure on chronic 3L of O2 continuously, hx. of rectal cancer s/p resection s/p colostomy, hx. of lung mass, recent atrial flutter diagnosis - presents due to weakness, fall, worsening shortness of breath Acute on Chronic Hypoxic/Hypercapnic Respiratory Failure secondary to Acute COPD Exacerbation 05/20 - ABG on admission - CO2 >90 - there is chronic respiratory failure, he uses 3L of O2 continuously - initially on bipap, now off of it - started on 40mg of prednisone for the COPD, nebs as needed, doxycycline - pulmonology consulted for further input 05/23/2018 Status post bronchoscopy with biopsy on May 22, [address] Lowery Still at baseline 3 L of nasal cannula, comfortable Continue prednisone, doxycycline p.o., bronchodilators monitor Appreciate pulmonary service consultation CO2 Narcosis - resolved - patient with altered mental status/disorientation on admission, now resolved Hemoptysis in the setting of R Mediastinal/Hilar Mass 05/22 Status post bronchoscopic evaluation with biopsy Biopsy: Small cell CA Patient will need oncologist evaluation Appreciate Dr. Gross's recommendations Paroxysmal Atrial Flutter - was discharged last week from [facility] after converting from atrial flutter to NSR - currently in NSR - states he had trouble with metoprolol, so this was stopped - cardiology consulted to see if we should start a CCB - no anticoagulation due to thrombocytopenia, bleed risk, hemoptysis, etc. - will clarify with patient when metoprolol was stopped at home Hx. of Rectal Cancer s/p Resection and Ostomy DVT ppx - SCDs in light of hemoptysis We will discuss with thoracic surgeon and pulmonary regarding possibility of starting Lovenox subcutaneous as patient is high risk for DVTs DNR/DNI - pt. has living will Current Inpatient Medications: Current Inpatient Medications Medications (Trade) Dose Ordered Sig/Brittni Route Start Time Stop Time Status Last Admin Dose Admin Acetaminophen (Tylenol Tab) 650 mg Q4H PRN PO 05/20/18 03:15 06/19/18 03:14 Docusate Sodium (coLACE CAP) 100 mg BID PO 05/20/18 09:00 06/19/18 08:59 05/23/18 08:37 100 MG Ioversol (Optiray 320) 125 ml UD PRN IV 05/20/18 03:30 05/24/18 03:29 Prochlorperazine Edisylate 5 mg/ Syringe 5 ml @ 5 mls/min Q6H PRN IV 05/20/18 03:30 06/19/18 03:29 Miscellaneous (Iv Fluids Completed) 1 ea PRN PRN N/A 05/20/18 04:00 05/20/19 03:59 Ipratropium [place] (Atrovent 0.02% 0.5MG/2.5ML Neb) 0.5 mg Q4H PRN INH 05/20/18 04:45 06/19/18 04:44 Levalbuterol (Xopenex 1.25MG/ 0.5ML Neb) 1.25 mg Q4H PRN INH 05/20/18 04:45 06/19/18 04:44 Guaifenesin (Mucinex Contr Rel Tab) 600 mg Q12 PO 05/20/18 09:00 06/19/18 08:59 05/23/18 08:37 600 MG Benzonatate (Tessalon Perles Cap) 100 mg TID PRN PO 05/20/18 05:00 06/19/18 04:59 Doxycycline Hyclate (Vibramycin Cap) 100 mg BID PO 05/20/18 21:00 05/27/18 20:59 05/23/18 08:37 100 MG Insulin Glargine (Lantus Solostar Pen) 5 units DAILY SC 05/21/18 09:00 06/20/18 08:59 05/23/18 08:37 5 UNITS Insulin Aspart (novoLOG ASPART) SLIDING SCALE If C... ACHS SC 05/20/18 11:00 06/19/18 10:59 Glucose (Glucose 40% Gel) 15-30 GRAMS 15 GRAMS... UD PRN PO 05/20/18 06:00 06/19/18 05:59 Glucose (Glucose Chew Tab) 4-8 Tablets 4 Tabl... UD PRN PO 05/20/18 06:00 06/19/18 05:59 Dextrose (Dextrose 50% 50ML Syringe) 25-50ML 25ML FOR ... UD PRN IV 05/20/18 06:00 06/19/18 05:59 Glucagon (Glucagon Inj) 1 mg UD PRN SQ 05/20/18 06:00 06/19/18 05:59 Carbohydrates (Carbohydrates For Hypoglycemia) 15-30 GRAMS 15 grams if BSG 54-69... UD PRN PO 05/20/18 06:00 06/19/18 05:59 Ipratropium [place] (Atrovent 0.02% 0.5MG/2.5ML Neb) 0.5 mg Q6R INH 05/20/18 09:00 06/19/18 08:59 05/23/18 14:25 0.5 MG Levalbuterol (Xopenex 1.25MG/ 0.5ML Neb) 1.25 mg Q6R INH 05/20/18 09:00 06/19/18 08:59 05/23/18 14:25 1.25 MG Polyethylene (Miralax Powder Packet) 17 gm DAILY PRN PO 05/23/18 09:15 06/22/18 09:14 05/23/18 10:48 17 GM Enteral Nutritional Formula (Boost Glucose Control) 1 can TIDM PO 05/23/18 11:30 06/22/18 11:29 05/23/18 16:46 1 CAN Prednisone (PredniSONE TAB) 30 mg DAILY PO 05/24/18 09:00 05/26/18 08:59
[2018-05-24] VITALS (13 sets, daily range): BP systolic 95–113; BP diastolic 49–71; PULSE 67–87; TEMP 36.5–36.9; O2SAT 91–99; Ht 188 cm; Wt 79.3 kg
[2018-05-24] MEDS: IPRATROPIUM BROMIDE NEB SOLN 0.02% 2.5 ML VIAL INH SCH ×4 (01:55→19:32)
[2018-05-24] MEDS: LEVALBUTEROL 1.25MG/0.5ML NEB INH SCH ×4 (01:55→19:32)
[2018-05-24] MEDS: INSULIN ASPART 100 UNITS/ML 3 ML PEN SC SCH ×4 (07:32→21:00)
[2018-05-24] MEDS: GUAIFENESIN 600 MG TABCR PO SCH ×2 (08:19→20:28)
[2018-05-24] MEDS: DOXYCYCLINE HYCLATE 100 MG CAP PO SCH ×2 (08:19→20:28)
[2018-05-24] MEDS: DOCUSATE SODIUM 100 MG CAP PO SCH ×2 (08:20→20:28)
[2018-05-24] MEDS: BOOST GLUCOSE CONTROL VANILLA PO SCH ×4 (08:23→16:45)
[2018-05-24] MEDS: INSULIN GLARGINE SOLOSTAR 100 UNITS/ML 3 ML PEN SC SCH (08:23)
[2018-05-24] MEDS: POLYETHYLENE (MIRALAX) 17 GM PACK PO PRN (08:25)
--- NOTE | 2018-05-24 10:00 | Cardiology Follow-Up ---
Subjective General Date of Service: May 24, 2018. Chief Complaint: Paroxysmal atrial flutter History of Present Illness Patient seen and examined. at bedside. Status post lung biopsy with pathology revealing small cell carcinoma. Plans are to discuss options with Dr. Domingo of Hematology. Continuous telemetry monitoring shows sinus rhythm/sinus tachycardia with premature atrial complexes. He is currently in sinus rhythm in the 70-80 bpm range. No recurrent atrial flutter observed over the last 48 hours. May 17, 2018 TTE Interpretation Summary ([facility], Dr. Hills): Technically difficult secondary to patient's rhythm of atrial flutter. Normal LV chamber size and wall thickness. Normal LV systolic function, EF 55-60%. No segmental left ventricular wall motion abnormalities are noted. Poorly visualized valvular structures without significant stenosis or regurgitation by Doppler. Allergies Coded Allergies: Metoprolol (Verified Adverse Reaction, Mild, 0, 05/20/18) weakness Morphine (Verified Adverse Reaction, Unknown, GI SYMPTOMS, 05/16/18) dry heaving and convulsing-during recent [facility] surgery in 2012. Nitroglycerin (Verified Adverse Reaction, Unknown, GI SYMPTOMS, 05/16/18) at the same time of morphine allergy. heaving and convulsing. Social History Smoking Status: Former Smoker (Quit 2012) Hx Tobacco Use In Past Year?: No Hx Alcohol Use - Type And Amou: No Hx Substance Use - Type And Am: No Problem List Medical Problems: (1) Abdominal pain Status: Acute (2) Atrial ectopic tachycardia Status: Acute (3) COPD exacerbation Status: Acute (4) Failure to thrive in adult Status: Acute (5) Fall Status: Acute (6) Generalized weakness Status: Acute (7) Hypercapnia Status: Acute Physical Exam Vital Signs Last Vital Signs Documentation Date Time Temp Pulse Resp B/P (MAP) Pulse Ox O2 Delivery O2 Flow Rate FiO2 05/24/18 07:45 94 Nasal Cannula 2.0 05/24/18 07:33 36.6 74 18 95/56 (69) 05/23/18 07:56 Physical Exam Constitutional: Level of Distress: NAD, chronically ill Psychiatric: Mental Status: lethargic Head: normocephalic, atraumatic Neck: pertinent finding (Normal JVP) Lungs: Auscultation: no wheezing, no rales/crackles, no rhonchi, deminished air movement, decreased breath sounds Cardiovascular: Heart Auscultation: RRR, no murmurs, no rubs, no gallops Abdomen: Bowel Sounds: normal Musculoskeletal: abnormal strength Extremities: no cyanosis, no edema, no varicosities Neurologic: Cranial Nerves: grossly intact Assessment and Plan Assessment and Plan Paroxysmal atrial flutter. Multiple contraindications to anticoagulation including hemoptysis, anemia, thrombocytopenia, gait instability. Small cell lung carcinoma Chronic obstructive pulmonary disease Chronic hypercapnic respiratory failure History of rectal cancer Patient notes being asymptomatic with the previously documented atrial arrhythmias (atrial flutter). He and his are uninterested in treatment measures at this time (retrial of beta-herson therapy, calcium channel herson therapy, digoxin, and antiarrhythmic medications discussed). He has multiple contraindications to anticoagulation including hemoptysis, anemia, thrombocytopenia, gait instability, etc. The patient will follow up with Dr. Casey as an outpatient. Please call with any questions or concerns. CARDIOLOGY ATTENDING ADDENDUM: The patient was seen and personally examined. Agree with Mina Benitez PA-C's findings and plans as documented above. Pathology revealed small cell lung cancer. Treatment options are pending. Laboratory Results Last 24 Hours Test 05/23/18 11:44 05/23/18 16:08 05/23/18 20:20 05/24/18 07:18 Bedside Glucose 116 mg/dl 135 mg/dl 121 mg/dl 100 mg/dl
--- NOTE | 2018-05-24 14:25 | PULMONARY PROGRESS NOTE ---
DATE: 05/24/2018 TIME: 2:00 p.m. SUBJECTIVE: The patient denies complaints. He states his breathing is comfortable. However, he tends to minimize his symptoms. OBJECTIVE: GENERAL: The patient is comfortable at rest. VITAL SIGNS: Temperature 36.7. I have not seen the patient get out of bed. Heart rate is 83 per minute. The rhythm is regular. Blood pressure 104/68. LUNGS: Lung rodriguez revealed diminished breath sounds bilaterally. Respiratory rate 20. Saturation 94% on 2 liters. LABORATORY DATA: The patient has not been using BiPAP. He really does not like to use it. 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 IMPRESSIONS: 1. Respiratory failure - acute on chronic with hypoxia and hypercarbia - improved. 2. Small cell carcinoma of the lung. 3. Emphysema. COMMENTS AND RECOMMENDATIONS: The patient and I discussed his diagnosis. He had been told by someone else as well. He is waiting to meet with Dr. Domingo from the oncology department. The patient is very anxious to get home, but he states his wants him to go to rehab. The patient's respiratory status seems stable for now. I will see again only if requested. I believe the prednisone can gradually be tapered off.
--- NOTE | 2018-05-24 15:30 | Palliative Care Progress Note ---
Palliative Care Progress Note Date of Service May 24, 2018. Subjective Pt evaluation today including: conversation w/ patient, physical exam, chart review, conversation w/ dairy feed sales consultant Pain: none Patient is awake, alert and oriented x4. Appears deconditioned/chronically ill. Has mild SOB, although he denies, at rest with accessory muscle use but no distress. Patient denies any pain or other discomforts. Followed up on his conversation with Dr. Zimmerman from yesterday, he states he has no questions at this time. He has not had a chance to discuss with his yet, but for now he wants to follow up with heme/onc to find out his options for treatment. Review of Systems Constitutional: No weakness ENT: No trouble swallowing Respiratory: + dyspnea on exertion, No cough, No sputum, No shortness of breath , No hemoptysis Cardiac: No chest pain, No edema Abdomen: No pain, No nausea, No vomiting Male : No problem reported Psychiatric: No depression symptoms, No anxiety Objective Vital Signs Date Time Temp Pulse Resp B/P (MAP) Pulse Ox O2 Delivery O2 Flow Rate FiO2 05/24/18 15:13 36.7 87 18 113/71 (85) 96 Nasal Cannula 2.0 05/24/18 14:26 82 16 96 Nasal Cannula 4.0 05/24/18 11:50 36.7 71 20 104/68 (80) 94 Nasal Cannula 2.0 05/24/18 07:45 94 Nasal Cannula 2.0 05/24/18 07:33 36.6 74 18 95/56 (69) 94 Nasal Cannula 2.0 05/24/18 07:18 67 16 96 Nasal Cannula 3.0 05/24/18 02:48 36.9 80 18 102/49 (66) 91 Nasal Cannula 1.0 05/24/18 01:55 76 16 93 Nasal Cannula 1.0 05/23/18 23:59 Nasal Cannula 1.0 05/23/18 23:14 36.6 78 18 109/60 (76) 93 Nasal Cannula 1.0 05/23/18 21:28 96 Nasal Cannula 4.0 Humidified Oxygen 05/23/18 21:28 94 Nasal Cannula 1.0 Humidified Oxygen 05/23/18 19:56 36.6 78 18 106/65 (79) 94 Nasal Cannula 2.0 05/23/18 19:37 88 16 97 Nasal Cannula 3.0 05/23/18 19:12 Nasal Cannula 4.0 05/23/18 15:36 36.8 88 16 109/73 (85) 94 Nasal Cannula 3.0 Physical Exam General Appearance: no apparent distress, + pertinent finding (chronically ill appearing) ENT: hearing grossly normal Neck: supple, no JVD Respiratory/Chest: no respiratory distress, no accessory muscle use, + decreased breath sounds Cardiovascular: regular rate, rhythm, + normal peripheral pulses Abdomen: normal bowel sounds, non tender, soft Neurologic/Psychiatric: alert, normal mood/affect, oriented x 3 Skin: + pallor Laboratory Results Last 24 Hours Test 05/23/18 16:08 05/23/18 20:20 05/24/18 07:18 05/24/18 11:14 Bedside Glucose 135 mg/dl 121 mg/dl 100 mg/dl 129 mg/dl Assessment and Plan Problem list: Weakness Right lung mass Anemia Goals of care Palliative care recs: -Patient is DNR per previous discussion. -Plan is for patient to follow up with heme/onc to discuss treatment options given his path results of small cell carcinoma from transbronchial biopsy. -Patient states he plans to talk with his about his wishes once he has treatment options and will decide what his goals of care are. -Dr. Zimmerman provided patient with outpatient information if he would like to follow up. -Thank you again for this consult. Please contact us with any further palliative care needs. Total time spent 25 minutes with >50% of time spent at bedside counseling/ discussing GOC with patient. Palliative Performance Scale: 40 %
--- NOTE | 2018-05-24 16:45 | SURGERY PROGRESS NOTE ---
DATE: 05/24/2018 Mr. Cabello was seen today. I had a long talk with the patient's . Dr. Domingo will be seeing Mr. Cabello for his small cell lung carcinoma. He is about the same clinically. He requires oxygen. He is quite weak. From pulmonary standpoint, he has not changed. We had a long talk about small cell carcinoma and what this means. I will be curious to see if Dr. Domingo offers him any treatment. He is quite elderly and debilitated.
--- NOTE | 2018-05-24 16:54 | Medical Consult ---
Consultation Date of Consultation: May 24, 2018. Attending Physician: Ant Pickard MD Reason for Consultation: Limited stage SCLC, initial diagnosis History of Present Illness Mr. Cabello is a 78 yo M known to the consulting medical oncology service. He was seen by myself in Mar 2018 for a routine follow up at 5 yrs from colorectal cancer diagnosis. At that visit, he c/o 20 lbs weight loss with no GI symptoms reported, fatigue. As it has been a good period of time since surveillance scans , ordered CT chest/abdomen/pelvis that was completed in early Apr 2018. This showed right hilar adenopathy, with his COPD and smoking history, referred to Dr. Gross. Dr. Gross found in preop testing atrial flutter so biopsy was delayed. He was admitted on 05/20/18 after an episode of fall at home. CT surgery, pulmonology and cardiology were all consulted. Dr. Gross was able biopsy right suprahilar findings on 05/22/18 via bronchoscopy. The diagnosis is SCLC. He had borderline HOTN on admission, so beta herson has been stopped. Patient not interested in medical management of atrial flutter so this has not been restarted. also, with his falls, thrombocytopenia baseline anticoagulation has not been advised. He remains O2 dependent, but has been since 2006; currently with acute on chronic respiratory failure s/p bronch. Additional history obtained from the patient at bedside. His was present. Diagnosis, treatment options and overall prognosis were main part of conversation- see A/P below. He states today his breathing is at baseline with O2 supplementation. No active cough. Eating well, no bowel issues. He denies urinary complaints. He has not had headaches or dizziness. No distal edema. He denies any pain. He is generally weak, not been out of bed. Past Medical/Surgical History Medical Problems: (1) Abdominal pain Status: Acute (2) Atrial ectopic tachycardia Status: Acute (3) COPD exacerbation Status: Acute (4) Failure to thrive in adult Status: Acute (5) Fall Status: Acute (6) Generalized weakness Status: Acute (7) Hypercapnia Status: Acute Family History Diabetes mellitus Hypertension Lung disease Social History Smoking Status: Former Smoker (Quit 2012) Drug Use: none Marital Status: Housing Status: lives with family Occupation Status: retired Allergies Coded Allergies: Metoprolol (Verified Adverse Reaction, Mild, 0, 05/20/18) weakness Morphine (Verified Adverse Reaction, Unknown, GI SYMPTOMS, 05/16/18) dry heaving and convulsing-during recent [facility] surgery in 2012. Nitroglycerin (Verified Adverse Reaction, Unknown, GI SYMPTOMS, 05/16/18) at the same time of morphine allergy. heaving and convulsing. Current Inpatient Medications Current Inpatient Medications Medications (Trade) Dose Ordered Sig/Brittni Route Start Time Stop Time Status Last Admin Dose Admin Acetaminophen (Tylenol Tab) 650 mg Q4H PRN PO 05/20/18 03:15 06/19/18 03:14 Docusate Sodium (coLACE CAP) 100 mg BID PO 05/20/18 09:00 06/19/18 08:59 05/24/18 08:20 100 MG Prochlorperazine Edisylate 5 mg/ Syringe 5 ml @ 5 mls/min Q6H PRN IV 05/20/18 03:30 06/19/18 03:29 Miscellaneous (Iv Fluids Completed) 1 ea PRN PRN N/A 05/20/18 04:00 05/20/19 03:59 Ipratropium [place] (Atrovent 0.02% 0.5MG/2.5ML Neb) 0.5 mg Q4H PRN INH 05/20/18 04:45 06/19/18 04:44 Levalbuterol (Xopenex 1.25MG/ 0.5ML Neb) 1.25 mg Q4H PRN INH 05/20/18 04:45 06/19/18 04:44 Guaifenesin (Mucinex Contr Rel Tab) 600 mg Q12 PO 05/20/18 09:00 06/19/18 08:59 05/24/18 08:19 600 MG Benzonatate (Tessalon Perles Cap) 100 mg TID PRN PO 05/20/18 05:00 06/19/18 04:59 Doxycycline Hyclate (Vibramycin Cap) 100 mg BID PO 05/20/18 21:00 05/27/18 20:59 05/24/18 08:19 100 MG Insulin Glargine (Lantus Solostar Pen) 5 units DAILY SC 05/21/18 09:00 06/20/18 08:59 05/24/18 08:23 5 UNITS Insulin Aspart (novoLOG ASPART) SLIDING SCALE If C... ACHS SC 05/20/18 11:00 06/19/18 10:59 Glucose (Glucose 40% Gel) 15-30 GRAMS 15 GRAMS... UD PRN PO 05/20/18 06:00 06/19/18 05:59 Glucose (Glucose Chew Tab) 4-8 Tablets 4 Tabl... UD PRN PO 05/20/18 06:00 06/19/18 05:59 Dextrose (Dextrose 50% 50ML Syringe) 25-50ML 25ML FOR ... UD PRN IV 05/20/18 06:00 06/19/18 05:59 Glucagon (Glucagon Inj) 1 mg UD PRN SQ 05/20/18 06:00 06/19/18 05:59 Carbohydrates (Carbohydrates For Hypoglycemia) 15-30 GRAMS 15 grams if BSG 54-69... UD PRN PO 05/20/18 06:00 06/19/18 05:59 Ipratropium [place] (Atrovent 0.02% 0.5MG/2.5ML Neb) 0.5 mg Q6R INH 05/20/18 09:00 06/19/18 08:59 05/24/18 14:26 0.5 MG Levalbuterol (Xopenex 1.25MG/ 0.5ML Neb) 1.25 mg Q6R INH 05/20/18 09:00 06/19/18 08:59 05/24/18 14:26 1.25 MG Polyethylene (Miralax Powder Packet) 17 gm DAILY PRN PO 05/23/18 09:15 06/22/18 09:14 05/24/18 08:25 17 GM Enteral Nutritional Formula (Boost Glucose Control) 1 can TIDM PO 05/23/18 11:30 06/22/18 11:29 05/24/18 08:23 1 CAN Prednisone (PredniSONE TAB) 30 mg DAILY PO 05/24/18 09:00 05/26/18 08:59 05/24/18 08:20 30 MG Review of Systems Constitutional: + weakness, + fatigue, No fever, No chills ENT: No hearing loss Respiratory: + shortness of breath, No cough Cardiovascular: No chest pain, No edema Abdomen: No pain, No nausea, No vomiting, No diarrhea, No constipation Genitourinary - Male: No dysuria Neurologic: + weakness, No vertigo Physical Exam Date Time Temp Pulse Resp B/P (MAP) Pulse Ox O2 Delivery O2 Flow Rate FiO2 05/24/18 15:13 36.7 87 18 113/71 (85) 96 Nasal Cannula 2.0 05/24/18 14:26 82 16 96 Nasal Cannula 4.0 05/24/18 11:50 36.7 71 20 104/68 (80) 94 Nasal Cannula 2.0 05/24/18 07:45 94 Nasal Cannula 2.0 05/24/18 07:33 36.6 74 18 95/56 (69) 94 Nasal Cannula 2.0 05/24/18 07:18 67 16 96 Nasal Cannula 3.0 05/24/18 02:48 36.9 80 18 102/49 (66) 91 Nasal Cannula 1.0 05/24/18 01:55 76 16 93 Nasal Cannula 1.0 05/23/18 23:59 Nasal Cannula 1.0 05/23/18 23:14 36.6 78 18 109/60 (76) 93 Nasal Cannula 1.0 05/23/18 21:28 96 Nasal Cannula 4.0 Humidified Oxygen 05/23/18 21:28 94 Nasal Cannula 1.0 Humidified Oxygen 05/23/18 19:56 36.6 78 18 106/65 (79) 94 Nasal Cannula 2.0 05/23/18 19:37 88 16 97 Nasal Cannula 3.0 05/23/18 19:12 Nasal Cannula 4.0 General Appearance: no apparent distress, + pertinent finding ENT: hearing grossly normal Neck: no adenopathy Respiratory/Chest: + decreased breath sounds Cardiovascular: regular rate, rhythm Abdomen/GI: non tender, soft Extremities/Musculoskelatal: no pedal edema Neurologic/Psych: alert, oriented x 3 Laboratory Results Last 24 Hours Test 05/23/18 20:20 05/24/18 07:18 05/24/18 11:14 05/24/18 16:14 Bedside Glucose 121 mg/dl 100 mg/dl 129 mg/dl 160 mg/dl Assessment & Plan 1. Limited stage SCLC 2. generalized weakness 3. poor performance status * Reviewed inpatient imaging- CTA chest fom 05/20/18 with approx 6 cm right suprahilar/RUL mas with compression of bronchi and pulmonary artery with no PE visualized * CT of head on 05/20/18 negative for intracranial mets, should be sufficient imaging at this time given his case is palliative * Discussed with patient/ that given his age, performance status and cormorbid condition, standard of care with chemoRT would not be advised * could consider palliative XRT alone, concern for palliative chemotherapy would be his performance status, infectious complications with underlying COPD * Dr. Domingo will discuss definitively about this plan with patient/ * Recommend Rad Onc consult * is on board if clinically appropriate by the attending MDs for palliative measures only as well Thanks for the consult. Dr. Domingo is attending medical oncologist- please see his addendum. I performed history and physical examination of the patient. ~I have discussed the patient's case, impression and plan with Meghana Alonzo PA-C. Her note reflects my findings and plan. In summary, he is a 78-year-old male, who had significant weight loss noted in the last few weeks, additional workup showed enlarging right hilar/mediastinal lymphadenopathy measuring about 5 to 6 cm, he was seen by Dr. Gross, underwent bronchoscopic evaluation on 05/22/2080, biopsy from the right hilar mass confirmed the diagnosis of small-cell lung cancer. He has quite a few comorbid conditions mainly significant COPD, he is on oxygen therapy for the last 11 years, significant declining performed status noted, ECOG PS 3, recent imaging study showed no evidence of distant masses noted anywhere else in the lung or in the liver. His blood workup shows mild anemia, thrombocytopenia with platelet count around 100,000. I spoke with the patient as well as his who was at bedside regarding the diagnostic workup done in his case, had colon cancer diagnosis earlier. Discussed with them regarding the role of standard treatment option in the form combined chemotherapy and radiation treatment but looking at his age, comorbid conditions, declining process, thrombocytopenia, I would not consider systemic chemotherapy at this time and he and his is also not interested in pursuing any kind of Hematocrit treatment for the new cancer diagnosis. Discussed with them regarding the role of palliative radiation treatment that can be considered. His suggest that it would be difficult for her to take care of pain, it is most likely that he may go to the [facility] upon discharge from the hospital. Also talked to him that if he is not doing well while on radiation treatment, we can start the treatment and then consider for for supportive and symptom treatment with the home hospice services.. Thanks for the considerable Pasquale Domingo MD Hem/Onc
--- NOTE | 2018-05-24 20:42 | Progress Note ---
Medicine Progress Note Date & Time of Visit: May 24, 2018 at 20:37. Subjective Seen resting in bed, comfortable at the bedside States breathing is improving Less cough, hemoptysis Denies other symptoms Objective Last 8 Hrs Date Time Temp Pulse Resp B/P (MAP) Pulse Ox O2 Delivery O2 Flow Rate FiO2 05/24/18 20:08 36.8 77 20 104/62 (76) 95 Nasal Cannula 3.0 05/24/18 19:35 80 16 96 Nasal Cannula 4.0 05/24/18 19:05 36.7 87 18 96 2.0 05/24/18 15:13 36.7 87 18 113/71 (85) 96 Nasal Cannula 2.0 05/24/18 14:26 82 16 96 Nasal Cannula 4.0 Physical Exam: General-oriented 3, speaking in sentences, no accessory muscle use Head- atraumatic Eyes-anicteric ENT- oropharynx clear Neck- supple, no JVD Lungs-clear breath sounds bilaterally, no rales wheezes Heart-normal rate, regular rhythm; no murmurs Abdomen- normal bowel sounds, soft, nontender Extremities- no pretibial edema, no calf tenderness; peripheral pulses intact Neuro- alert, oriented x 3; no gross focal neurologic deficits Skin- warm & dry Laboratory Results: Last 24 Hours Test 05/24/18 07:18 05/24/18 11:14 05/24/18 16:14 Bedside Glucose 100 mg/dl 129 mg/dl 160 mg/dl Assessment & Plan This is a 78 year old male with a past medical history of severe COPD, chronic respiratory failure on chronic 3L of O2 continuously, hx. of rectal cancer s/p resection s/p colostomy, hx. of lung mass, recent atrial flutter diagnosis - presents due to weakness, fall, worsening shortness of breath Acute on Chronic Hypoxic/Hypercapnic Respiratory Failure secondary to Acute COPD Exacerbation 05/20 - ABG on admission - CO2 >90 - there is chronic respiratory failure, he uses 3L of O2 continuously - initially on bipap, now off of it - started on 40mg of prednisone for the COPD, nebs as needed, doxycycline - pulmonology consulted for further input 05/23/2018 Status post bronchoscopy with biopsy on May 22, [address] Lowery Still at baseline 3 L of nasal cannula, comfortable 05/24/2018 Remained stable to baseline 3 L of nasal cannula Continue prednisone, doxycycline, percutaneous Appreciate pulmonary and thoracic surgeon recommendations Right mediastinal mass, small cell carcinoma Oncologist Dr. Domingo consulted Does not recommend chemotherapy Also recommend possible palliative radiation therapy, will order radiation oncology consult CO2 Narcosis - resolved - patient with altered mental status/disorientation on admission, now resolved Hemoptysis in the setting of R Mediastinal/Hilar Mass 05/22 Status post bronchoscopic evaluation with biopsy Biopsy: Small cell CA Paroxysmal Atrial Flutter - was discharged last week from [facility] after converting from atrial flutter to NSR - currently in NSR - states he had trouble with metoprolol, so this was stopped Cardiology consulted, medications recommended at this point - no anticoagulation due to thrombocytopenia, bleed risk, hemoptysis, etc. Hx. of Rectal Cancer s/p Resection and Ostomy DVT ppx - SCDs in light of hemoptysis and biopsy 05/23/18 will discuss with thoracic surgeon and pulmonary regarding possibility of starting Lovenox subcutaneous as patient is high risk for DVTs DNR/DNI - pt. has living will Current Inpatient Medications: Current Inpatient Medications Medications (Trade) Dose Ordered Sig/Brittni Route Start Time Stop Time Status Last Admin Dose Admin Acetaminophen (Tylenol Tab) 650 mg Q4H PRN PO 05/20/18 03:15 06/19/18 03:14 Docusate Sodium (coLACE CAP) 100 mg BID PO 05/20/18 09:00 06/19/18 08:59 05/24/18 20:28 100 MG Prochlorperazine Edisylate 5 mg/ Syringe 5 ml @ 5 mls/min Q6H PRN IV 05/20/18 03:30 06/19/18 03:29 Miscellaneous (Iv Fluids Completed) 1 ea PRN PRN N/A 05/20/18 04:00 05/20/19 03:59 Ipratropium [place] (Atrovent 0.02% 0.5MG/2.5ML Neb) 0.5 mg Q4H PRN INH 05/20/18 04:45 06/19/18 04:44 Levalbuterol (Xopenex 1.25MG/ 0.5ML Neb) 1.25 mg Q4H PRN INH 05/20/18 04:45 06/19/18 04:44 Guaifenesin (Mucinex Contr Rel Tab) 600 mg Q12 PO 05/20/18 09:00 06/19/18 08:59 05/24/18 20:28 600 MG Benzonatate (Tessalon Perles Cap) 100 mg TID PRN PO 05/20/18 05:00 06/19/18 04:59 Doxycycline Hyclate (Vibramycin Cap) 100 mg BID PO 05/20/18 21:00 05/27/18 20:59 05/24/18 20:28 100 MG Insulin Glargine (Lantus Solostar Pen) 5 units DAILY SC 05/21/18 09:00 06/20/18 08:59 05/24/18 08:23 5 UNITS Insulin Aspart (novoLOG ASPART) SLIDING SCALE If C... ACHS SC 05/20/18 11:00 06/19/18 10:59 Glucose (Glucose 40% Gel) 15-30 GRAMS 15 GRAMS... UD PRN PO 05/20/18 06:00 06/19/18 05:59 Glucose (Glucose Chew Tab) 4-8 Tablets 4 Tabl... UD PRN PO 05/20/18 06:00 06/19/18 05:59 Dextrose (Dextrose 50% 50ML Syringe) 25-50ML 25ML FOR ... UD PRN IV 05/20/18 06:00 06/19/18 05:59 Glucagon (Glucagon Inj) 1 mg UD PRN SQ 05/20/18 06:00 06/19/18 05:59 Carbohydrates (Carbohydrates For Hypoglycemia) 15-30 GRAMS 15 grams if BSG 54-69... UD PRN PO 05/20/18 06:00 06/19/18 05:59 Ipratropium [place] (Atrovent 0.02% 0.5MG/2.5ML Neb) 0.5 mg Q6R INH 05/20/18 09:00 06/19/18 08:59 05/24/18 19:32 0.5 MG Levalbuterol (Xopenex 1.25MG/ 0.5ML Neb) 1.25 mg Q6R INH 05/20/18 09:00 06/19/18 08:59 05/24/18 19:32 1.25 MG Polyethylene (Miralax Powder Packet) 17 gm DAILY PRN PO 05/23/18 09:15 06/22/18 09:14 05/24/18 08:25 17 GM Prednisone (PredniSONE TAB) 30 mg DAILY PO 05/24/18 09:00 05/26/18 08:59 05/24/18 08:20 30 MG Enteral Nutritional Formula (Boost Glucose Control) 1 can BIDM PO 05/24/18 16:45 06/23/18 16:44
[2018-05-25] VITALS (8 sets, daily range): BP systolic 97–102; BP diastolic 57–65; PULSE 70–84; TEMP 36.4–36.7; O2SAT 94–98
[2018-05-25] MEDS: IPRATROPIUM BROMIDE NEB SOLN 0.02% 2.5 ML VIAL INH SCH ×4 (02:19→19:46)
[2018-05-25] MEDS: LEVALBUTEROL 1.25MG/0.5ML NEB INH SCH ×4 (02:19→19:46)
[2018-05-25] MEDS: GUAIFENESIN 600 MG TABCR PO SCH ×2 (08:08→21:22)
[2018-05-25] MEDS: DOCUSATE SODIUM 100 MG CAP PO SCH ×2 (08:08→21:22)
[2018-05-25] MEDS: DOXYCYCLINE HYCLATE 100 MG CAP PO SCH ×2 (08:08→21:02)
[2018-05-25] MEDS: INSULIN GLARGINE SOLOSTAR 100 UNITS/ML 3 ML PEN SC SCH (08:11)
[2018-05-25] MEDS: BOOST GLUCOSE CONTROL VANILLA PO SCH ×2 (08:17→17:19)
[2018-05-25] MEDS: INSULIN ASPART 100 UNITS/ML 3 ML PEN SC SCH ×4 (08:33→21:00)
--- NOTE | 2018-05-25 10:14 | SURGERY PROGRESS NOTE ---
DATE: 05/25/2018 Mr. Cabello was seen today. He actually looks quite good today. On 4 liters, he has 97% saturations. His final pathology of course is a small cell lung carcinoma. From our standpoint, he is about back to baseline. He has been seen by medical oncology. Dr. Pasquale Domingo from [facility] does not feel the patient is in a condition with his other comorbid factors to tolerate systemic chemotherapy and I would have to agree. There has been some discussion about radiation therapy. At this point, I will leave that in the hands of the radiation oncologist and Dr. Domingo. I will be glad to see this patient at any time, but will sign off at this point.
[2018-05-25] MEDS: POLYETHYLENE (MIRALAX) 17 GM PACK PO PRN (10:32)
--- NOTE | 2018-05-25 15:59 | Radiation Oncology Consult ---
Radiation Oncology Consult Date / Reason May 25, 2018. Diagnosis (1) Small cell lung cancer History of Present Illness I am seeing Mr. Cabello in consultation at the request of Dr. Pickard. The patient's was also present during the consultation. ECOG PS: 3 Mr. Cabello is a 78-year-old gentleman who presents with a history of colorectal cancer who recently presented with a pulmonary mass found on imaging studies. 05/04/2018 --- CT of chest/abdomen/pelvis ---IMPRESSION: New bulky right hilar and lower right paratracheal adenopathy, concerning for a primary neoplasm of the lung. There is associated mass-effect on the anterior right upper lobe vasculature. Recommend FNA. Density extending into the adjacent anterior right upper lobe bronchi may reflect extension of the hilar disease or mucous plugging. There is a similar, separate finding in the posterior right upper lobe, suggesting mucoid impaction, albeit an endobronchial lesion is not excluded. Similar postsurgical changes of APR and left colostomy, without evidence of local recurrence. No evidence of metastatic disease in the abdomen. Hyperdensity in the posterior bladder may reflect bladder stones. Severe emphysema. Dense multi-vessel coronary disease. Additional findings are described above. 05/20/2018 --- CT of chest/CT angiogram --- IMPRESSION: 1. No evidence for pulmonary embolus. 2. Redemonstration of the 6.3 cm right mediastinal/hilar mass. This results in mild narrowing of the bronchus intermedius and moderate narrowing of the right upper lobe bronchus. There is intraluminal nodularity at the bronchus intermedius consistent with tumor invasion. 3. Nodular densities within the right upper lobe posteriorly favor impaction of the bronchi. This measures up to 9 mm. This could be due to tumor impaction. This remains unchanged. 3. Emphysema. 4. Trace left pleural effusion. 5. Severe narrowing of the right upper lobe pulmonary artery due to the mass. This remains unchanged. 05/22/2018 --- fiberoptic bronchoscopy with biopsy by Dr. Chase Gross --- findings include abnormal mucosa involving the right mainstem bronchus with some narrowing of the right upper lobe bronchus. Biopsy of right upper lobe bronchus reveals small cell lung carcinoma. Brushings were also positive for small cell lung carcinoma. 05/24/2018 --- medical oncology consultation --- recommendation was for consideration of radiation therapy alone. Dr. Domingo and Meghana Alonzo advised against chemotherapy given the patient's poor performance status. We are now seeing the patient in consultation to discuss the role of radiation therapy. Currently, the patient is complaining of some shortness of breath, weakness and fatigue. He denies hemoptysis, fevers, chills or night sweats. His appetite and weight are poor. Pacemaker Hx Pacemaker: No Past History Past Medical/Surgical History: Atrial Fibrillation, Cancer (Colon Cancer), COPD , CVA/TIA, Other Social History Smoking Status: Former Smoker (Quit 2012) Hx Tobacco Use In Past Year?: No Quit Date: Jul 31, 2013 Do You Dip or Chew Tobacco: No Hx Alcohol Use: No Hx Substance Use : No Allergies Coded Allergies: Metoprolol (Verified Adverse Reaction, Mild, 0, 05/20/18) weakness Morphine (Verified Adverse Reaction, Unknown, GI SYMPTOMS, 05/16/18) dry heaving and convulsing-during recent [facility] surgery in 2012. Nitroglycerin (Verified Adverse Reaction, Unknown, GI SYMPTOMS, 05/16/18) at the same time of morphine allergy. heaving and convulsing. Home Medications Scheduled Ascorbic Acid (Vitamin C 500 mg), 500 MG PO QAM Docusate Sodium (Docusate Sodium), 100 MG PO BID Furosemide (Lasix), 20 MG PO QAM Home O2 Therapy (Oxygen), 2-3 LITERS NA CONTINOUS Metoprolol Tartrate (Lopressor) (Lopressor), 12.5 MG PO DAILY Scheduled PRN Chlorpheniramine Maleate (Chlor-Trimeton), 4 MG PO BID PRN for Allergic Reaction Review of Systems Extremities: Hx Deep Vein Thrombosis: No Eyes: Hx Cataracts: No Ear/Hearing: Ear Side: Bilateral Hearing Ability: Hard of Hearing Hearing Aid: None Edema: Present?: No Location Body Site Modifier: Bilateral Type: Pitting Degree: Trace Physical Exam Height: 6 (Feet) 2.00 (Inches) 188.0 (Centimeters) 1.8796 (Meters) Weight: 176 (Pounds) 2.4 (Ounces) 79.900 (Kilograms) 25010.000 (Grams) Date Time Temp Pulse Resp B/P (MAP) Pulse Ox O2 Delivery O2 Flow Rate FiO2 05/25/18 14:15 74 16 98 Nasal Cannula 4.0 05/25/18 11:12 36.7 78 16 99/62 (74) 96 Nasal Cannula 4.0 05/25/18 09:00 97 Nasal Cannula 4.0 05/25/18 07:16 36.6 79 16 97/57 (70) 97 Nasal Cannula 4.0 05/25/18 06:58 75 16 96 Nasal Cannula 4.0 05/25/18 02:21 75 16 98 Nasal Cannula 4.0 05/25/18 00:00 Nasal Cannula 4.0 05/24/18 23:12 36.5 80 24 109/64 (79) 99 Nasal Cannula 5.0 05/24/18 20:08 36.8 77 20 104/62 (76) 95 Nasal Cannula 3.0 05/24/18 20:00 94 Nasal Cannula 4.0 05/24/18 19:35 80 16 96 Nasal Cannula 4.0 05/24/18 19:05 36.7 87 18 96 2.0 General Appearance: + mild distress, + cachetic Head: normocephalic, atraumatic Eyes: normal inspection ENT: normal ENT inspection Neck: supple, no adenopathy Respiratory/Chest: + respiratory distress, + decreased breath sounds, + accessory muscle use Cardiovascular: no edema, no gallop, no JVD, no murmur Abdomen/GI: normal bowel sounds, non tender, soft, no organomegaly Back: normal inspection Neurologic/Psych: electrical control assembler II-XII nml as tested, alert, oriented x 3 Pain Management Patient Reports Pain: No Pain Location: None Patient Preferred Pain Scale: 0 - 10 Initial Pain Intensity: 0.0 Level of Consciousness: Spontaneously Alert Pain Intervention: Refuses Pain Medication Pain Management Plan Patient has no pain and requires no pain management plan. Laboratory Laboratory Results: were reviewed Pathology Pathology Results: were reviewed, and pertinent findings noted in HPI Imaging Imaging Studies: were reviewed, and pertinent findings noted in HPI Assessment & Recommendations Assessment: Mr. Cabello is a 78-year-old gentleman who presents with potentially limited stage small cell lung carcinoma (bone scan pending). The patient has been evaluated by Dr. Pasquale Domingo and Meghana Alonzo PA-C for medical oncology and they have advised against chemotherapy given the patient's poor performance status. They have recommended consideration of radiation therapy. We are now seeing the patient in consultation discuss role of radiation therapy. Recommendation: We have recommended a course of palliative external beam radiation therapy to the chest to prevent progression of symptoms and development of symptoms as well. We have also recommended a bone scan to complete the staging workup so the patient can have a good understanding of the patient's overall stage. Plan: 1. CT simulation for treatment planning. 2. Start radiation therapy early next week. 3. Follow up with medical oncology. 4. Continue to follow up with all other providers. 5. Patient and family encouraged to call us with any further questions or concerns. Rationale/Explanation of Treatment: We have explained the indications, alternatives, benefits, risks and side effects of radiation therapy to the lung. We have explained the most common side effects which include but are not limited to skin erythema, skin break down, pulmonary fibrosis, adhesion development, radiation pneumonitis, rib fracture, heart failure and heart disease, esophagitis, development of fistula, fatigue and development of secondary malignancy. We have explained the CT simulation process and treatment planning. We explained what to expect before, during and after treatment on a regular basis. The patient understands and would be willing to consent to treatment. The patient and family had multiple questions which were answered to their full satisfaction. Thank you for allowing us to participate in the care of this patient. This chart was completed in part utilizing [employer] Speech Voice Recognition software. Attempts were made to minimize the grammatical errors, random word insertions, pronoun errors and incomplete sentences. Any formal questions or concerns about the content, text or information contained within the body of this dictation should be directly addressed to the provider for clarification. Robe Domingo MD Department of Radiation Oncology [facility] Ernestina María [facility] Total Time (Attending) I spent 30 minutes examining and counseling the patient. I spent 15 minutes completing this note. BARTOLO
--- NOTE | 2018-05-25 19:52 | DIAGNOSTIC IMAGING REPORT ---
BONE SCAN WHOLE BODY CLINICAL HISTORY: small cell lung CA COMPARISON STUDY: None FINDINGS: The patient was injected with 26.1 mCi of technetium 99m MDP. Three-hour delayed whole body images were acquired. There are foci of minor arthritic activity within the knees and feet. There are no foci of increased activity viewed as suspicious for skeletal metastasis. IMPRESSION: No scintigraphic evidence of skeletal metastasis. Electronically signed by: Srinath Alba M.D. 05/25/2018 7:51 PM Dictated Date/Time: 05/25/2018 7:50 PM
--- NOTE | 2018-05-25 20:01 | Progress Note ---
Medicine Progress Note Date & Time of Visit: May 25, 2018 at 19:58. Subjective Seen resting in bed, comfortable watching TV States he feels fine overall Denies dyspnea, less coughing, no hemoptysis Denies chest pain No other symptoms Objective Last 8 Hrs Date Time Temp Pulse Resp B/P (MAP) Pulse Ox O2 Delivery O2 Flow Rate FiO2 05/25/18 19:47 70 16 94 Nasal Cannula 4.0 05/25/18 14:15 74 16 98 Nasal Cannula 4.0 Physical Exam: General-oriented 3, speaking in sentences, no accessory muscle use Head- atraumatic Eyes-anicteric Neck- no JVD Lungs-clear breath sounds bilaterally Heart-normal rate, regular rhythm; no murmurs Abdomen- normal bowel sounds, soft, nontender Extremities- no pretibial edema, no calf tenderness; peripheral pulses intact Neuro- alert, oriented x 3; no gross focal neurologic deficits Skin- warm & dry Laboratory Results: Last 24 Hours Test 05/24/18 20:34 05/25/18 07:27 05/25/18 11:32 05/25/18 16:41 Bedside Glucose 94 mg/dl 104 mg/dl 129 mg/dl 117 mg/dl Assessment & Plan This is a 78 year old male with a past medical history of severe COPD, chronic respiratory failure on chronic 3L of O2 continuously, hx. of rectal cancer s/p resection s/p colostomy, hx. of lung mass, recent atrial flutter diagnosis - presents due to weakness, fall, worsening shortness of breath Acute on Chronic Hypoxic/Hypercapnic Respiratory Failure secondary to Acute COPD Exacerbation 05/20 - ABG on admission - CO2 >90 - there is chronic respiratory failure, he uses 3L of O2 continuously - initially on bipap, now off of it - started on 40mg of prednisone for the COPD, nebs as needed, doxycycline - pulmonology consulted for further input 05/23/2018 Status post bronchoscopy with biopsy on May 22, [address] Lowery Still at baseline 3 L of nasal cannula, comfortable 05/24/2018 Remained stable to baseline 3 L of nasal cannula Continue prednisone, doxycycline, percutaneous Appreciate pulmonary and thoracic surgeon recommendations 05/25/2018 Remained stable Continue prednisone, doxycycline, nebs Right mediastinal mass, small cell carcinoma Oncologist Dr. Domingo consulted, Does not recommend chemotherapy Also recommend possible palliative radiation therapy, will order radiation oncology consult Dr. Kirill Domingo consulted, recommended palliative radiation CT planning to be done and bone scan prior to discharge CO2 Narcosis - resolved - patient with altered mental status/disorientation on admission, now resolved Hemoptysis in the setting of R Mediastinal/Hilar Mass 05/22 Status post bronchoscopic evaluation with biopsy Biopsy: Small cell CA 05/25/2018Resolved Paroxysmal Atrial Flutter - was discharged last week from [facility] [place] after converting from atrial flutter to NSR - currently in NSR - states he had trouble with metoprolol, so this was stopped Cardiology consulted, medications recommended at this point - no anticoagulation due to thrombocytopenia, bleed risk, hemoptysis, etc. Hx. of Rectal Cancer s/p Resection and Ostomy DVT ppx -Discussed with thoracic surgery service , leslee with starting heparin for DVT prophylaxis DNR/DNI - pt. has living will Disposition Plan to transition to [facility] once CT planning by radiation oncology and bone scan are completed Current Inpatient Medications: Current Inpatient Medications Medications (Trade) Dose Ordered Sig/Brittni Route Start Time Stop Time Status Last Admin Dose Admin Acetaminophen (Tylenol Tab) 650 mg Q4H PRN PO 05/20/18 03:15 06/19/18 03:14 Docusate Sodium (coLACE CAP) 100 mg BID PO 05/20/18 09:00 06/19/18 08:59 05/25/18 08:08 100 MG Prochlorperazine Edisylate 5 mg/ Syringe 5 ml @ 5 mls/min Q6H PRN IV 05/20/18 03:30 06/19/18 03:29 Miscellaneous (Iv Fluids Completed) 1 ea PRN PRN N/A 05/20/18 04:00 05/20/19 03:59 Ipratropium Halfway (Atrovent 0.02% 0.5MG/2.5ML Neb) 0.5 mg Q4H PRN INH 05/20/18 04:45 06/19/18 04:44 Levalbuterol (Xopenex 1.25MG/ 0.5ML Neb) 1.25 mg Q4H PRN INH 05/20/18 04:45 06/19/18 04:44 Guaifenesin (Mucinex Contr Rel Tab) 600 mg Q12 PO 05/20/18 09:00 06/19/18 08:59 05/25/18 08:08 600 MG Benzonatate (Tessalon Perles Cap) 100 mg TID PRN PO 05/20/18 05:00 06/19/18 04:59 Doxycycline Hyclate (Vibramycin Cap) 100 mg BID PO 05/20/18 21:00 05/27/18 20:59 05/25/18 08:08 100 MG Insulin Glargine (Lantus Solostar Pen) 5 units DAILY SC 05/21/18 09:00 06/20/18 08:59 05/25/18 08:11 5 UNITS Insulin Aspart (novoLOG ASPART) SLIDING SCALE If C... ACHS SC 05/20/18 11:00 06/19/18 10:59 Glucose (Glucose 40% Gel) 15-30 GRAMS 15 GRAMS... UD PRN PO 05/20/18 06:00 06/19/18 05:59 Glucose (Glucose Chew Tab) 4-8 Tablets 4 Tabl... UD PRN PO 05/20/18 06:00 06/19/18 05:59 Dextrose (Dextrose 50% 50ML Syringe) 25-50ML 25ML FOR ... UD PRN IV 05/20/18 06:00 06/19/18 05:59 Glucagon (Glucagon Inj) 1 mg UD PRN SQ 05/20/18 06:00 06/19/18 05:59 Carbohydrates (Carbohydrates For Hypoglycemia) 15-30 GRAMS 15 grams if BSG 54-69... UD PRN PO 05/20/18 06:00 06/19/18 05:59 Ipratropium Halfway (Atrovent 0.02% 0.5MG/2.5ML Neb) 0.5 mg Q6R INH 05/20/18 09:00 06/19/18 08:59 05/25/18 19:46 0.5 MG Levalbuterol (Xopenex 1.25MG/ 0.5ML Neb) 1.25 mg Q6R INH 05/20/18 09:00 06/19/18 08:59 05/25/18 19:46 1.25 MG Polyethylene (Miralax Powder Packet) 17 gm DAILY PRN PO 05/23/18 09:15 06/22/18 09:14 05/25/18 10:32 17 GM Prednisone (PredniSONE TAB) 30 mg DAILY PO 05/24/18 09:00 05/26/18 08:59 05/25/18 08:08 30 MG Enteral Nutritional Formula (Boost Glucose Control) 1 can BIDM PO 05/24/18 16:45 06/23/18 16:44 05/25/18 17:19 1 CAN
[2018-05-25] MEDS: HEPARIN SOD 5000 UNIT/0.5 ML CARP SQ SCH (21:26)
[2018-05-26] VITALS (7 sets, daily range): BP systolic 94–112; BP diastolic 57–70; PULSE 53–80; TEMP 36.4–36.7; O2SAT 95–100
[2018-05-26] MEDS: IPRATROPIUM BROMIDE NEB SOLN 0.02% 2.5 ML VIAL INH SCH ×2 (02:09→07:12)
[2018-05-26] MEDS: LEVALBUTEROL 1.25MG/0.5ML NEB INH SCH ×2 (02:09→07:12)
[2018-05-26] MEDS: HEPARIN SOD 5000 UNIT/0.5 ML CARP SQ SCH ×2 (05:49→13:12)
[2018-05-26] MEDS: INSULIN ASPART 100 UNITS/ML 3 ML PEN SC SCH ×2 (07:48→12:02)
[2018-05-26] MEDS: GUAIFENESIN 600 MG TABCR PO SCH (08:04)
[2018-05-26] MEDS: DOCUSATE SODIUM 100 MG CAP PO SCH (08:04)
[2018-05-26] MEDS: DOXYCYCLINE HYCLATE 100 MG CAP PO SCH (08:05)
[2018-05-26] MEDS: BOOST GLUCOSE CONTROL VANILLA PO SCH (08:05)
[2018-05-26] MEDS: INSULIN GLARGINE SOLOSTAR 100 UNITS/ML 3 ML PEN SC SCH (08:07)
--- NOTE | 2018-05-26 11:26 | Progress Note ---
Medicine Progress Note Date & Time of Visit: May 26, 2018 at 11:19. Subjective seen resting in bed, comfortable, watching TV E states he feels fine overall Denies shortness of breath no cough, Hemoptysis Denies other symptoms States he feels comfortable being discharged today Objective Last 8 Hrs Date Time Temp Pulse Resp B/P (MAP) Pulse Ox O2 Delivery O2 Flow Rate FiO2 05/26/18 11:02 36.4 77 16 97 Nasal Cannula 05/26/18 08:30 Nasal Cannula 4.0 05/26/18 08:20 Nasal Cannula 4.0 05/26/18 07:15 77 16 97 Nasal Cannula 4.0 05/26/18 07:13 36.4 72 16 94/57 (69) 97 Nasal Cannula 4.0 05/26/18 04:14 36.4 76 18 99/58 (72) 100 Nasal Cannula 4.0 Physical Exam: General-oriented 3, speaking in sentences, no accessory muscle use Eyes-anicteric Neck- no JVD Lungs-clear breath sounds bilaterally, no crackles or wheezing Heart-normal rate, regular rhythm; no murmurs Abdomen- normal bowel sounds, soft, nontender Extremities- no pretibial edema, no calf tenderness; peripheral pulses intact Neuro- alert, oriented x 3; no gross focal neurologic deficits Skin- warm & dry Laboratory Results: Last 24 Hours Test 05/25/18 11:32 05/25/18 16:41 05/25/18 20:37 05/26/18 07:31 Bedside Glucose 129 mg/dl 117 mg/dl 109 mg/dl 125 mg/dl Assessment & Plan Follow-up with [facility] primary care physician Dr. Huerta in 1 week This is a 78 year old male with a past medical history of severe COPD, chronic respiratory failure on chronic 3L of O2 continuously, hx. of rectal cancer s/p resection s/p colostomy, hx. of lung mass, recent atrial flutter diagnosis - presents due to weakness, fall, worsening shortness of breath Acute on Chronic Hypoxic/Hypercapnic Respiratory Failure secondary to Acute COPD Exacerbation 05/20 - ABG on admission - CO2 >90 - there is chronic respiratory failure, he uses 3L of O2 continuously - initially on bipap, now off of it - started on 40mg of prednisone for the COPD, nebs as needed, doxycycline - pulmonology consulted for further input 05/23/2018 Status post bronchoscopy with biopsy on May 22, [address] Lowery Still at baseline 3 L of nasal cannula, comfortable 05/24/2018 Remained stable to baseline 3 L of nasal cannula Continue prednisone, doxycycline, percutaneous Appreciate pulmonary and thoracic surgeon recommendations 05/25/2018 Remained stable Continue prednisone, doxycycline, nebs 05/26/2018 Stable finish prednisone taper Completed 7 days of doxycycline twice daily Nebs as needed Right mediastinal mass, small cell carcinoma Oncologist Dr. Pasquale Domingo consulted, chemotherapy not recommended at this time due to patient's functional status ' radiation oncologist Dr. Robe Domingo consulted, recommend palliative radiation therapy, to be started on Tuesday, May 29, 2018 at [facility] radiation oncology Bone scan: No metastasis CO2 Narcosis - resolved - patient with altered mental status/disorientation on admission, now resolved Hemoptysis in the setting of R Mediastinal/Hilar Mass 05/22 Status post bronchoscopic evaluation with biopsy Biopsy: Small cell CA Monitor resolved Paroxysmal Atrial Flutter - was discharged recently from [facility] after converting from atrial flutter to NSR - currently in NSR - states he had trouble with metoprolol, so this was stopped Cardiology consulted, medications not recommended at this point - no anticoagulation due to thrombocytopenia, bleed risk, hemoptysis, etc. Hx. of Rectal Cancer s/p Resection and Ostomy DVT ppx -Discusse d with thoracic surgery service , leslee with heparin for DVT prophylaxis DNR/DNI - pt. has living will Disposition Transition to [facility] Follow-up with [facility] radiation oncology for treatment on Tuesday, May 292017 Follow-up with [facility] oncologist Dr. Pasquale Domingo in 1-2 weeks Follow-up with [facility] primary care physician Dr. Huerta in 1 week Current Inpatient Medications: Current Inpatient Medications Medications (Trade) Dose Ordered Sig/Brittni Route Start Time Stop Time Status Last Admin Dose Admin Acetaminophen (Tylenol Tab) 650 mg Q4H PRN PO 05/20/18 03:15 06/19/18 03:14 Docusate Sodium (coLACE CAP) 100 mg BID PO 05/20/18 09:00 06/19/18 08:59 05/26/18 08:04 100 MG Prochlorperazine Edisylate 5 mg/ Syringe 5 ml @ 5 mls/min Q6H PRN IV 05/20/18 03:30 06/19/18 03:29 Miscellaneous (Iv Fluids Completed) 1 ea PRN PRN N/A 05/20/18 04:00 05/20/19 03:59 Ipratropium Lamont (Atrovent 0.02% 0.5MG/2.5ML Neb) 0.5 mg Q4H PRN INH 05/20/18 04:45 06/19/18 04:44 Levalbuterol (Xopenex 1.25MG/ 0.5ML Neb) 1.25 mg Q4H PRN INH 05/20/18 04:45 06/19/18 04:44 Guaifenesin (Mucinex Contr Rel Tab) 600 mg Q12 PO 05/20/18 09:00 06/19/18 08:59 05/26/18 08:04 600 MG Benzonatate (Tessalon Perles Cap) 100 mg TID PRN PO 05/20/18 05:00 06/19/18 04:59 Doxycycline Hyclate (Vibramycin Cap) 100 mg BID PO 05/20/18 21:00 05/27/18 20:59 05/26/18 08:05 100 MG Insulin Glargine (Lantus Solostar Pen) 5 units DAILY SC 05/21/18 09:00 06/20/18 08:59 05/26/18 08:07 5 UNITS Insulin Aspart (novoLOG ASPART) SLIDING SCALE If C... ACHS SC 05/20/18 11:00 06/19/18 10:59 Glucose (Glucose 40% Gel) 15-30 GRAMS 15 GRAMS... UD PRN PO 05/20/18 06:00 06/19/18 05:59 Glucose (Glucose Chew Tab) 4-8 Tablets 4 Tabl... UD PRN PO 05/20/18 06:00 06/19/18 05:59 Dextrose (Dextrose 50% 50ML Syringe) 25-50ML 25ML FOR ... UD PRN IV 05/20/18 06:00 06/19/18 05:59 Glucagon (Glucagon Inj) 1 mg UD PRN SQ 05/20/18 06:00 06/19/18 05:59 Carbohydrates (Carbohydrates For Hypoglycemia) 15-30 GRAMS 15 grams if BSG 54-69... UD PRN PO 05/20/18 06:00 06/19/18 05:59 Ipratropium Lamont (Atrovent 0.02% 0.5MG/2.5ML Neb) 0.5 mg Q6R INH 05/20/18 09:00 06/19/18 08:59 05/26/18 07:12 0.5 MG Levalbuterol (Xopenex 1.25MG/ 0.5ML Neb) 1.25 mg Q6R INH 05/20/18 09:00 06/19/18 08:59 05/26/18 07:12 1.25 MG Polyethylene (Miralax Powder Packet) 17 gm DAILY PRN PO 05/23/18 09:15 06/22/18 09:14 05/25/18 10:32 17 GM Enteral Nutritional Formula (Boost Glucose Control) 1 can BIDM PO 05/24/18 16:45 06/23/18 16:44 05/26/18 08:05 1 CAN Heparin Sodium (Porcine) (Heparin Sq 5000 Unit/0.5ml) 5,000 unit Q8 SQ 05/25/18 22:00 06/24/18 21:59 05/26/18 05:49 5,000 UNIT
[2018-05-26] MEDS ORDERED: XPNINS1255 INH (11:34)
[2018-05-26] MEDS ORDERED: OXGN (11:34)
[2018-05-26] MEDS ORDERED: NUTR-7 PO (11:34)
[2018-05-26] MEDS ORDERED: HPRIS5M SQ (11:34)
[2018-05-26] MEDS ORDERED: ATRINS INH (11:34)
[2018-05-26] MEDS ORDERED: PRED10TA PO (11:36)
--- NOTE | 2018-05-26 11:42 | Discharge Instructions ---
Discharge Instructions Date of Service May 26, 2018. Admission Reason for Admission: Afib, Fall Discharge Discharge Diagnosis / Problem: Small Cell Lung Cancer Discharge Goals Goal(s): Diagnostic testing, Therapeutic intervention Activity Recommendations Activity Level: Assistance Required Therapies: Physical Therapy, Occupational Therapy . Additional Information Patient informed of condition: Yes Advance Directives: No (unknown) DNR: Yes Level of Care: Skilled Communicable Disease: No Prognosis: Stable Oxygen at (LPM): 4 liters via [place] Instructions / Follow-Up Instructions / Follow-Up Please monitor platelets as patient has thrombocytopenia and is now on heparin subcutaneous for DVT prophylaxis. Reevaluate subcutaneous heparin indication for DVT prophylaxis. Patient needs to follow-up with [facility] radiation oncology for treatment on Tuesday May 29, [address] Nataliia Domingo. Follow up with Dr. Pasquale Montanez Oncology in 2 weeks. Follow up with Dr. Bradley Cali primary care physician on Thursday, May 31, 2018 at 12:45 PM Please refer to accompanying hospital discharge summary for further details. Current Hospital Diet Patient's current hospital diet: Diabetes Type 2 Diet Discharge Diet Recommended Diet: Diabetes Type 2 Diet Procedures Procedures Performed: Bronchoscopy with biopsies Pending Studies Studies pending at discharge: no Physician Orders On Transfer Special Precautions: Please monitor platelets as patient has thrombocytopenia and is now on heparin subcutaneous for DVT prophylaxis. Reevaluate subcutaneous heparin indication for DVT prophylaxis. Patient needs to follow-up with [facility] radiation oncology for treatment on Tuesday May 29, [address] Nataliia Domingo. Follow up with Dr. Pasquale Montanez Oncology in 2 weeks. Follow up with Dr. Bradley Cali primary care physician on Thursday, May 31, 2018 at 12:45 PM Please refer to accompanying hospital discharge summary for further details. Laboratory Results Hemoglobin A1c Test 05/20/18 00:44 Range/Units Estimated Average Glucose 105 mg/dl Hemoglobin A1c 5.3 4.5-5.6 % Medical Emergencies . Who to Call and When: Medical Emergencies: If at any time you feel your situation is an emergency, please call 911 immediately. . Non-Emergent Contact Non-Emergency issues call your: Primary Care Provider, Oncologist Call Non-Emergent contact if: you have a fever, you have any medication questions . Past History Medical & Surgical History: (1) IMPAIRED FASTING GLUCOSE (2) CHR AIRWAY OBSTRUCT NEC (3) Atrial flutter (4) Colostomy in place (5) Chronic hypercapnic respiratory failure (6) History of rectal cancer (7) New onset atrial flutter (8) Thrombocytopenia (9) Afib (10) Respiratory failure, [id number] (11) Generalized weakness (12) Fall (13) Failure to thrive in adult (14) Anemia, macrocytic (15) Palliative care encounter (16) Mass of right lung (17) Small cell lung cancer . "Provider Documentation" section prepared by Ant Pickard. . Core Measure Problem Core Measures: None
--- NOTE | 2018-05-26 11:50 | Discharge Summary ---
Discharge Summary Date of Service May 26, 2018. Discharge Summary Admission Date: May 20, 2018 at 05:13 Discharge Date: May 26, 2018 Discharge Disposition: [facility] Principal Diagnosis: Acute on Chronic Hypoxic/Hypercapnic Respiratory Failure secondary to Acute COPD Exacerbation Secondary Diagnoses/Problems: Please refer to hospital course below. Procedures: HEAD CT NONCONTRAST CT DOSE: 1073.86 mGy.cm HISTORY: Generalized Weakness TECHNIQUE: Multiaxial CT images of the head were performed without the use of intravenous contrast. Automated exposure control was utilized for this study. A dose lowering technique was utilized adhering to the principles of ALARA. Comparison: None. Findings: The paranasal sinuses and mastoid air cells are clear. The calvarium and skull base are intact. There is no mass, hematoma, midline shift, acute infarct. White matter hypodensity is nonspecific but suggestive of microvascular ischemic change. The ventricles and sulci demonstrate mild age-related involutional changes. Impression: No acute intracranial abnormality. Atrophy and microvascular ischemic changes. CERVICAL SPINE CT CT DOSE: HISTORY: fall, head injury TECHNIQUE: Multiaxial CT images of the cervical spine were performed and reformatted in the sagittal and coronal plane without the use of contrast. A dose lowering technique was utilized adhering to the principles of ALARA. COMPARISON: None. FINDINGS: No fractures. No subluxation. Prevertebral soft tissues and the C1-C2 interval are intact. No pneumothorax. Moderate to severe facet degenerative changes. There is fusion of the C5-C6 vertebral bodies and facets. Emphysema. IMPRESSION: No fractures within the cervical spine. CHEST CTA for PULMONARY ARTERIES CT DOSE: 606.65 mGy.cm HISTORY: Hemoptysis. Lung cancer. TECHNIQUE: Multiaxial CT images of the chest were performed following the intravenous administration of contrast to evaluate the pulmonary arteries. Maximal intensity projection images were also obtained. A dose lowering technique was utilized adhering to the principles of ALARA. COMPARISON STUDY: Chest CTA 05/16/2018. FINDINGS: Normal caliber thoracic aorta with no evidence for dissection. The heart is normal in size. The visualized liver and spleen are unremarkable. Stable mild adrenal gland thickening. Trace left pleural effusion. No significant change in the 6.3 cm right mediastinal/hilar mass. There is associated mild narrowing of the bronchus intermedius and moderate narrowing of the right upper lobe bronchus. Intraluminal nodularity within the bronchus intermedius likely represents tumor invasion. Emphysema. No pneumothorax. Mildly distended fluid-filled esophagus. Opacification of the right apical posterior segmental bronchi. These measure up to 9 mm in thickness. This remains unchanged. No suspicious lytic or blastic osseous lesions. Severe narrowing of the right upper lobe pulmonary artery due to the mass. However, there are no filling defects within the visualized pulmonary arteries to suggest pulmonary embolus. The lower lower lobe segmental pulmonary arteries are nondiagnostic due to the motion artifact. IMPRESSION: 1. No evidence for pulmonary embolus. 2. Redemonstration of the 6.3 cm right mediastinal/hilar mass. This results in mild narrowing of the bronchus intermedius and moderate narrowing of the right upper lobe bronchus. There is intraluminal nodularity at the bronchus intermedius consistent with tumor invasion. 3. Nodular densities within the right upper lobe posteriorly favor impaction of the bronchi. This measures up to 9 mm. This could be due to tumor impaction. This remains unchanged. 3. Emphysema. 4. Trace left pleural effusion. 5. Severe narrowing of the right upper lobe pulmonary artery due to the mass. This remains unchanged. BONE SCAN WHOLE BODY CLINICAL HISTORY: small cell lung CA COMPARISON STUDY: None FINDINGS: The patient was injected with 26.1 mCi of technetium 99m MDP. Three-hour delayed whole body images were acquired. There are foci of minor arthritic activity within the knees and feet. There are no foci of increased activity viewed as suspicious for skeletal metastasis. IMPRESSION: No scintigraphic evidence of skeletal metastasis. Consultations: Pulmonary Dr. Jeter, Thoracic Surgeon Dr. Gross, Oncologist Dr. Pasquale Domingo , Radiation Oncology Dr. Robe Domingo Pending Studies/Follow-Up: Please monitor platelets as patient has thrombocytopenia and is now on heparin subcutaneous for DVT prophylaxis. Reevaluate subcutaneous heparin indication for DVT prophylaxis. Patient needs to follow-up with [facility] radiation oncology for treatment on Tuesday May 29, [address] Nataliia Domingo. Follow up with Dr. Pasquale Domingo [facility] Oncology in 2 weeks. Follow up with Dr. Bradley Cali primary care physician on Tuesday, May 31, 2018 at 12:45 PM Please refer to hospital course below. Medication Reconciliation New Medications: Prednisone Tab (Prednisone) 10 Mg Tab 10 MG PO UD for 8 Days, TAB take 2 tabs po x 2 days, then take 1 tab po x 2 days, then take 1/2 tab po x 2 days, then STOP Heparin Sod (Porcine) (Heparin Sodium) 5,000 Unit/0.5 Ml Inj 5000 UNIT SQ Q8 for 30 Days Ipratropium [place] (Ipratropium [place]) 0.5 Mg/2.5 Ml Nebu 0.5 MG INH Q4H PRN for Shortness of Breath for 30 Days Levalbuterol (Levalbuterol) 1.25 Mg/0.5 Ml Nebu 1.25 MG INH Q4H PRN for Shortness of Breath for 30 Days Nutritional Supplements (Boost) 1 Liq Liq 1 CAN PO BIDM for 30 Days Changed Medications: Home O2 Therapy (Oxygen) Gas 4 LITERS NA CONTINOUS for 30 Days (Changed from: 2-3 LITERS) Continued Medications: Ascorbic Acid (Vitamin C 500 mg) 1 Chw Chw 500 MG PO QAM Chlorpheniramine Maleate (Chlor-Trimeton) 4 Mg Tab 4 MG PO BID PRN for Allergic Reaction, TAB Docusate Sodium (Docusate Sodium) 100 Mg Cap 100 MG PO BID, CAP Discontinued Medications: Furosemide (Lasix) 20 Mg Tab 20 MG PO QAM, TAB Metoprolol Tartrate (Lopressor) (Lopressor) 25 Mg Tab 12.5 MG PO DAILY, TAB ORDERED TWICE DAILY. SPOUSE STATES PT TAKES ONCE DAILY. Admission Information HPI (per Admitting provider): DATE OF ADMISSION: 05/20/2018 PRIMARY CARE DOCTOR: Dr. Huerta. CHIEF COMPLAINT: Fall, weakness. HISTORY OF PRESENT ILLNESS: History obtained from patient, , records. Patient is a fair historian. Medical history significant for chronic respiratory failure secondary to COPD on home O2, past tobacco abuse, paroxysmal atrial flutter, not on anticoagulation secondary to bleeding risk, chronic thrombocytopenia, history of colorectal cancer status post surgery 2012, chronic anemia (baseline hemoglobin 10-11). Recent confinement from 05/16/2018 to 05/18/2018 for new onset Atrial Flutter with RVR, hilar mediastinal mass. Patient seen by Cardiology, Cathleen recommended. Patient deemed to be a poor candidate for anticoagulation due to risk factors. Patient noted generalized weakness attributed by and to low dose beta herson during confinement. Intermittent hypotensive episodes during confinement. Patient's atrial flutter converted to NSR during confinement. A CT chest during confinement showed confluent mediastinal right hilar adenopathy, resulting stenosis of right upper lobe pulmonary artery, early suspicious for malignancy. CT surgery consulted. Need to rule out malignancy. Possible outpatient procedure by CT surgery next week as per . At home, increased generalized weakness, unable to move around as much. Patient noted by to have intermittent episodes of labored breathing, although the patient denies this. Patient complaining of more junky cough. No fever, no chills. No chest pain. Last night he had a mechanical fall due to generalized weakness and loss of balance. Patient hit his forehead, LLE. No LOC. unable to help him get up. At the Emergency Room, the patient noted to have hemoptysis, blood-tinged sputum. MEDICAL HISTORY: As above. A 2D echo from last confinement April 2018 showed EF of 55%, normal LV systolic function, poorly-visualized valvular structures. SURGERIES: He has had bowel surgery, freeing of bowel adhesion. HOME MEDICATIONS: Include furosemide, metoprolol, ascorbic acid, chlorpheniramine home O2, docusate sodium. ALLERGIES: MORPHINE, NITROGLYCERIN. FAMILY HISTORY: Family history of colon cancer, heart disease. PERSONAL AND SOCIAL HISTORY: Past tobacco use. No chronic intake of alcoholic beverages. 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 REVIEW OF SYSTEMS: As per HPI. All 10 systems reviewed. All other ROS negative. Physical Exam (per Admitting): PHYSICAL EXAMINATION: VITAL SIGNS: Blood pressure was noted to be 116/67, pulse rate 90, respiratory rate 18, temperature 36.8, sats 97 on 3 liters. GENERAL: Noted to have episodic lethargy during encounter . No overt respiratory distress. Incessant coughing. SKIN: pallor, warm. HEENT: Abrasion right forehead, pale palpebral conjunctivae, . No ptosis. Dry mucosa. Nasal cannula in place. NECK: Supple, nontender. CHEST: decreased breath sounds, occasional wheeze. HEART: Regular rate and rhythm, no murmur. ABDOMEN: Soft, nontender. Ostomy noted . EXTREMITIES: Tender swelling , left knee and right forearm. NEUROLOGIC: Coherent except for episodic lethargy. No facial asymmetry. No gross focality. Gait and stance not assessed. Hospital Course This is a 78 year old male with a past medical history of severe COPD, chronic respiratory failure on chronic 3L of O2 continuously, hx. of rectal cancer s/p resection s/p colostomy, hx. of lung mass, recent atrial flutter diagnosis - presents due to weakness, fall, worsening shortness of breath Acute on Chronic Hypoxic/Hypercapnic Respiratory Failure secondary to Acute COPD Exacerbation - ABG on admission - CO2 >90 - there is chronic respiratory failure, he uses 3L of O2 continuously - weaned off Bipap - Pulmonary SVC Dr. Jeter consulted placed on prednisone taper, nebs, Doxycycline improved, and now at 4 L of O2 via NC - finish Prednisone taper continue PRN Nebs Right mediastinal mass, small cell Lung carcinoma s/p Bronchoscopy 05/22/[address] Gross Pathology report: LUNG, RIGHT UPPER LOBE, TRANSBRONCHIAL BIOPSY: SMALL CELL CARCINOMA. Oncologist Dr. Pasquale Domingo consulted, chemotherapy not recommended at this time due to patient's functional status ' radiation oncologist Dr. Robe Domingo consulted, recommend palliative radiation therapy, to be started on Tuesday, May 29, 2018 at [facility] radiation oncology Bone scan: No metastasis CO2 Narcosis - Resolved - patient with altered mental status/disorientation on admission, now resolved Hemoptysis in the setting of R Mediastinal/Hilar Mass Monitor resolved Paroxysmal Atrial Flutter - was discharged recently from [facility] after converting from atrial flutter to NSR - currently in sinus rhythm - states he had trouble with metoprolol, so this was stopped Cardiology consulted, medications not recommended at this point - no anticoagulation due to thrombocytopenia, bleed risk, hemoptysis, etc. Thrombocytopenia monitor platelet levels regularly (patient has history of thrombocytopenia ( platelet levels in the 70-80s) Hx. of Rectal Cancer s/p Resection and Ostomy DVT ppx -Discusse d with thoracic surgery service , [place] with heparin TID subcutaneously for DVT prophylaxis monitor platelet levels regularly (patient has history of thrombocytopenia ( platelet levels in the 70-80s) DNR/DNI - pt. has living will Disposition Transition to [facility] Follow-up with [facility] radiation oncology for treatment on Tuesday, May 292017 Follow-up with [facility] oncologist Dr. Pasquale Domingo in 1-2 weeks Follow-up with [facility] primary care physician Dr. Huerta in 1 week Total time spent on discharge = 35 minutes This includes examination of the patient, discharge planning, medication reconciliation, and communication with other providers. Discharge Instructions Discharge Instructions Date of Service May 26, 2018. Admission Reason for Admission: Afib, Fall Discharge Discharge Diagnosis / Problem: Small Cell Lung Cancer Discharge Goals Goal(s): Diagnostic testing, Therapeutic intervention Activity Recommendations Activity Level: Assistance Required Therapies: Physical Therapy, Occupational Therapy . Additional Information Patient informed of condition: Yes Advance Directives: No (unknown) DNR: Yes Level of Care: Skilled Communicable Disease: No Prognosis: Stable Oxygen at (LPM): 4 liters via NC Instructions / Follow-Up Instructions / Follow-Up Please monitor platelets as patient has thrombocytopenia and is now on heparin subcutaneous for DVT prophylaxis. Reevaluate subcutaneous heparin indication for DVT prophylaxis. Patient needs to follow-up with [facility] radiation oncology for treatment on Tuesday May 29, [address] Nataliia Domingo. Follow up with Dr. Pasquale Montanez Oncology in 2 weeks. Follow up with Dr. Bradley Cali primary care physician on Thursday, May 31, 2018 at 12:45 PM Please refer to accompanying hospital discharge summary for further details. Current Hospital Diet Patient's current hospital diet: Diabetes Type 2 Diet Discharge Diet Recommended Diet: Diabetes Type 2 Diet Procedures Procedures Performed: Bronchoscopy with biopsies Pending Studies Studies pending at discharge: no Physician Orders On Transfer Special Precautions: Please monitor platelets as patient has thrombocytopenia and is now on heparin subcutaneous for DVT prophylaxis. Reevaluate subcutaneous heparin indication for DVT prophylaxis. Patient needs to follow-up with [facility] radiation oncology for treatment on Tuesday May 29, [address] Nataliia Domingo. Follow up with Dr. Pasquale Montanez Oncology in 2 weeks. Follow up with Dr. Bradley Cali primary care physician on Thursday, May 31, 2018 at 12:45 PM Please refer to accompanying hospital discharge summary for further details. Laboratory Results Hemoglobin A1c Test 05/20/18 00:44 Range/Units Estimated Average Glucose 105 mg/dl Hemoglobin A1c 5.3 4.5-5.6 % Medical Emergencies . Who to Call and When: Medical Emergencies: If at any time you feel your situation is an emergency, please call 911 immediately. . Non-Emergent Contact Non-Emergency issues call your: Primary Care Provider, Oncologist Call Non-Emergent contact if: you have a fever, you have any medication questions . Past History Medical & Surgical History: (1) IMPAIRED FASTING GLUCOSE (2) CHR AIRWAY OBSTRUCT NEC (3) Atrial flutter (4) Colostomy in place (5) Chronic hypercapnic respiratory failure (6) History of rectal cancer (7) New onset atrial flutter (8) Thrombocytopenia (9) Afib (10) Respiratory failure, [id number] (11) Generalized weakness (12) Fall (13) Failure to thrive in adult (14) Anemia, macrocytic (15) Palliative care encounter (16) Mass of right lung (17) Small cell lung cancer . "Provider Documentation" section prepared by Ant Pickard. . Core Measure Problem Core Measures: None
--- NOTE | 2018-05-26 15:42 | Hematology/Oncology Prog Note ---
Hematology/Onc Progress Note Date of Service May 26, 2018. Subjective Patient was rounded on at bedside. He has no complaints. He is going to proceed with palliative XRT. He is planning to be discharged to today for rehab. He states his breathing is at baseline. He remains on supplemental O2. He ate his breakfast, states stoma is working without issue. Review of Systems: Respiratory: + see HPI Abdomen: + see HPI Vital Signs Vital Signs Past 12 Hours Date Time Temp Pulse Resp B/P (MAP) Pulse Ox O2 Delivery O2 Flow Rate FiO2 05/26/18 11:02 36.4 77 16 97 Nasal Cannula 05/26/18 08:30 Nasal Cannula 4.0 05/26/18 08:20 Nasal Cannula 4.0 05/26/18 07:15 77 16 97 Nasal Cannula 4.0 05/26/18 07:13 36.4 72 16 94/57 (69) 97 Nasal Cannula 4.0 05/26/18 04:14 36.4 76 18 99/58 (72) 100 Nasal Cannula 4.0 Physical Exam Constitutional: Level of Distress: NAD, chronically ill Lungs: Respiratory Effort: no dyspnea Auscuitation: expiratory wheezing (scattered) Cardiovascular: Heart Auscultation: pertinent finding (distant heart tones) Laboratory Last 24 Hours Test 05/25/18 16:41 05/25/18 20:37 05/26/18 07:31 05/26/18 11:20 Bedside Glucose 117 mg/dl 109 mg/dl 125 mg/dl 124 mg/dl Assessment & Plan 1. Limited stage SCLC * Patient is not a candidate for chemoRT, palliative chemo not advised with poor PS and underlying comorbidities * Patient met with Rad Onc, he is going to proceed with palliative XRT * Bone scan negative for mets * Patient should have follow up with Med Onc on discharge Dr. Domingo is attending medical oncologist.
--- NOTE | 2018-05-31 11:57 | EDITING REQUIRED CODING QUERY ---
CODING QUERY To promote full compliance with coding requirements relating to patient care, provider participation is requested in all cases of household appliance assembler uncertainty. Please assist us with the question(s) below: Coding Question(s): The operative report states biopsy was taken from the distal right main bronchus but the path report is showing the biopsy was taken from the right upper lung lobe. Please clarify the exact location of the biopsy below. Thanks. Physician's Response(s): ( x ) Distal right main bronchus ( ) Right upper lung lobe ( ) Other (please specify) Thank you Cathy Ortiz Principal Diagnosis: "_that condition established after study, to be chiefly responsible for occasioning the admission of the patient to the hospital for care." Co-Existing Principal Diagnosis: "_when two or more diagnoses equally meet the criteria for principal diagnosis as determined by the circumstances of admission, diagnostic work up, and/or therapy provided, and the Alphabetic Index, Tabular List, or another coding guideline does not provide sequencing direction, any one of the diagnoses may be sequenced first." "When the physician has documented what appears to be a current diagnosis in the body of the record, but has not included the diagnosis in the final diagnostic statement, the physician should be asked whether the diagnosis should be added." (Source [facility]oding [facility] 2 QTR90. p3-4)
[2018-06-05] MEDS ORDERED: LEVA1.258 INH (13:55)
[2018-06-05] MEDS ORDERED: ZINC40OI15 TOP (13:55)
[2018-06-05] MEDS ORDERED: ATRINS NEB (13:55)
== END 2018-05-26 15:27 | DRG 180 ==
LOC: C.EDB 05-20 00:01 → C.2T 05-20 03:06 → EDBEDREQ 05-20 03:13 → ENRESERV 05-20 03:16 → OBSVTOIN 05-20 05:13 → ENRESERV 05-24 18:49 → C.MED 05-24 19:19
PROVIDERS: ADMIT Family Medicine; ATTEND Internal Medicine
PROC: 0BB38ZX Excision of Right Main Bronchus, Via Natural or Artificial Opening Endoscopic, Diagnostic (ICD-10-PCS; principal; 2018-05-22 11:00)
DX: C34.01 Malignant neoplasm of right main bronchus (principal); J96.21 Acute and chronic respiratory failure with hypoxia; J96.22 Acute and chronic respiratory failure with hypercapnia; J44.1 Chronic obstructive pulmonary disease with (acute) exacerbation; E87.2 Acidosis; R04.2 Hemoptysis; I48.92 Unspecified atrial flutter; Z99.81 Dependence on supplemental oxygen; R29.6 Repeated falls; R53.1 Weakness; D69.6 Thrombocytopenia, unspecified; D53.9 Nutritional anemia, unspecified; R73.9 Hyperglycemia, unspecified; Z66 Do not resuscitate; Z87.891 Personal history of nicotine dependence; Z85.048 Personal history of other malignant neoplasm of rectum, rectosigmoid junction, and anus; Z93.3 Colostomy status; Z79.899 Other long term (current) drug therapy; Z88.5 Allergy status to narcotic agent; Z88.8 Allergy status to other drugs, medicaments and biological substances; Z82.5 Family history of asthma and other chronic lower respiratory diseases; Z80.0 Family history of malignant neoplasm of digestive organs

== ENCOUNTER 2018-06-07 13:12 | Emergency (ER) | payer OTHER, MEDICARE ==
[~2018-06-07] VITALS: Ht 188 cm; Wt 83.1 kg
[~2018-06-07 13:12] MED LIST changes: +ATRINS NEB; +DOCU100C31 PO; -FURO-85 PO; +HPRIS5M SQ; +LEVA1.258 INH; -LPR25 PO; +NUTR-7 PO; -SPRIN INH; +ZINC40OI15 TOP
[2018-06-07 13:18] VITALS: TEMP 36.6; Ht 188 cm; Wt 83.1 kg
[2018-06-07 16:32] VITALS: BP 94/60; PULSE 130; O2SAT 98
--- NOTE | 2018-06-07 18:12 | EMERGENCY ROOM VISIT NOTE ---
History Report prepared by Beto: Keyonna Silva Under the Supervision of: Dr. Barrera Nance M.D. First contact with patient: 13:23 Chief Complaint: OTHER COMPLAINT Stated Complaint: HYPOTENSION History of Present Illness The patient is a 78 year old male who presents to the Emergency Room with complaints of sudden hypotension that onset last night. Per , the patient has been deteriorating since last night after retuning from the ED. She notes that he was fine two days ago, but his symptoms began to worsen yesterday within a few hours. She notes that he became "out of it", he couldn't talk, and he experienced incontinence. Per , the patient has small lung cancer. She notes that she called his nurse in palliative care, but they could not do anything for him. She notes that she wants to put him on hospice care. The patient states that he wants to be enrolled in hospice care, does not want aggressive measures, and to return home. Source of History: spouse/significant other () History Limited By: other (Patient deferred history to ) Onset: last night Symptom Intensity: worsening Timing: other (sudden) Associated Symptoms: + urinary symptoms (incontintence ) Review of Systems See HPI for pertinent positives and negatives. A total of ten systems were reviewed and were otherwise negative. 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 (6) History of rectal cancer (7) IMPAIRED FASTING GLUCOSE (8) Palliative care encounter (9) Respiratory failure, [id number] (10) Small cell lung cancer Family History Diabetes mellitus Hypertension Lung disease Social History Smoking Status: Never Smoker Alcohol Use: none Drug Use: none Marital Status: Housing Status: lives with family Occupation Status: retired Current/Historical Medications Scheduled Ascorbic Acid (Vitamin C 500 mg), 500 MG PO QAM Docusate Sodium (Docusate Sodium), 100 MG PO BID Heparin Sod (Porcine) (Heparin Sodium), 5,000 UNIT SQ Q8 Home O2 Therapy (Oxygen), 4 LITERS NA CONTINOUS Ipratropium [place] (Ipratropium [place]), 1 VIAL NEB Q6H Levalbuterol Hcl (Levalbuterol Hcl), 1.25 MG INH Q6H Nutritional Supplements (Boost), 1 CAN PO BIDM Scheduled PRN Zinc Oxide (Topical) (Zinc Oxide), 1 DOSE TOP TID PRN for UNDECIDED Allergies Coded Allergies: Metoprolol (Verified Adverse Reaction, Mild, 0, 05/20/18) weakness Morphine (Verified Adverse Reaction, Unknown, GI SYMPTOMS, 05/16/18) dry heaving and convulsing-during recent [facility] surgery in 2012. Nitroglycerin (Verified Adverse Reaction, Unknown, GI SYMPTOMS, 05/16/18) at the same time of morphine allergy. heaving and convulsing. Physical Exam Vital Signs Date Time Temp Pulse Resp B/P (MAP) Pulse Ox O2 Delivery O2 Flow Rate FiO2 06/07/18 16:32 130 18 94/60 98 06/07/18 15:08 126 18 102/66 98 06/07/18 13:34 126 06/07/18 13:18 36.6 127 24 115/67 100 Nasal Cannula 5.0 Physical Exam GENERAL: Awake, alert, chronically ill-appearing. On oxygen. Alert to person and place. HENT: Normocephalic, atraumatic. Oropharynx unremarkable. EYES: Normal conjunctiva. Sclera non-icteric. NECK: Supple. No nuchal rigidity. RESPIRATORY: Clear to auscultation. No wheezes. Normal respiratory effort. CARDIAC: Tachycardic. Normal rhythm. Extremities warm and well perfused. GI: Left lower quadrant ostomy with stool output. Soft, non-distended. No tenderness to palpation. No rebound or guarding. No masses. RECTAL: Deferred. MUSCULOSKELETAL: Atraumatic. Chest examination reveals no tenderness. There is no CVA tenderness to palpation. LOWER EXTREMITIES: Calves are equal size bilaterally and non-tender. No edema NEURO: Normal sensorium. No sensory or motor deficits noted. No facial droop. SKIN: Warm and dry. No rash or jaundice noted. Medical Decision & Procedures ECG Per My Interpretation Indication: other (hypotension) Rate (beats per minute): 125 Rhythm: atrial flutter Findings: RBBB, other (no acute ST segment elevation) Comparison ECG Date: Change: Return to atrial flutter when compared to May 20, 2018. ED Course 1329: The patient was evaluated in room C9. A complete history and physical exam was performed. 1740: I reevaluated the patient. Discussed results and discharge instructions: he verbalized understanding and agreement. The patient is ready for discharge home to hospice. Medical Decision Differential diagnosis: Etiologies such as metabolic, infection, hypo/hyperglycemia, electrolyte abnormalities, cardiac sources, intracerebral event, toxicologic, neurologic, as well as others were entertained. Patient presents from home after recently coming home from senior care facility. Patient has multiple chronic medical conditions including COPD on oxygen, rectal cancer status post resection with colostomy, small cell lung cancer and intermittent recent atrial fibrillation who is on palliative care at home. Overnight confused and weak per and would not really speak. brings here she wants to enroll the patient in hospice and feel she can care for him at home. Patient is alert and oriented to place and states that he agrees just wants comfort and hospice and wants to be at home as much as possible. He does not want invasive medical testing. EKG performed does show that the patient is in atrial flutter again. As the patient refuses aggressive medical care I deferred additional significant testing at this point. Had case management discussed with them options for enrolling in hospice. Hospice customer development representative came and discussed with patient. They will meet with the patient and at home today and continue to arrange outpatient home hospice. Believe this is the best interest of the patient who once this. Will be discharged home in hospice. Discussed return criteria as needed. Medication Reconcilliation Current Medication List: was personally reviewed by me Blood Pressure Screening Patient's blood pressure: Low blood pressure Blood pressure disposition: Did not require urgent referral Impression Primary Impression: Weakness Additional Impression: Transitioned from emergency department to hospice Scribe Attestation The scribe's documentation has been prepared under my direction and personally reviewed by me in its entirety. I confirm that the note above accurately reflects all work, treatment, procedures, and medical decision making performed by me. Departure Information Dispostion Home / Self-Care Referrals Ray Huerta MD (PCP) Forms HOME CARE DOCUMENTATION FORM, IMPORTANT VISIT INFORMATION, WORK / SCHOOL INSTRUCTIONS Patient Instructions My [facility] Additional Instructions Please continue to be in close contact with hospice representatives and your regular doctor. The hospice representatives plan to meet with you this evening at home. They can continue to help you with home assistance and to make you most comfortable at this time in your house. If at any point you have concerns or questions were always able to return here for reevaluation. Problem Qualifiers
== END 2018-06-07 17:09 | disposition home or self-care (01) ==
LOC: EDBD 13:12 → C.EDC 13:13
DX: R53.1 Weakness (principal); I48.91 Unspecified atrial fibrillation; J44.9 Chronic obstructive pulmonary disease, unspecified; Z93.3 Colostomy status; J96.20 Acute and chronic respiratory failure, unspecified whether with hypoxia or hypercapnia; Z88.5 Allergy status to narcotic agent; Z88.8 Allergy status to other drugs, medicaments and biological substances